=== PATIENT | female | born 1950 | race Caucasian/White ===

== ENCOUNTER 2021-05-26 14:58 | Outpatient (CLI) | payer MEDICARE, BC, SELFPAY ==
--- NOTE | ~2021-05-26 | DEXA_ITS ---
Bone Density Report Name: Gunjan Coyne Age: 71 Sex: Female Ethnicity: White Date of : 1950 Indication: postmenopausal; height loss; prior fracture; hysterectomy; Referring Provider: Ophelia Izaguirre Study: Bone densitometry was performed. Exam Date: May 26, 2021 Accession number: [id number] Bone Density: Region BMD T-score Z-score Classification AP Spine (L1, L2, L4) 1.170 1.2 3.3 Normal Femoral Neck (Left) 0.663 -1.7 0.1 Osteopenia Total Hip (Left) 0.799 -1.2 0.3 Osteopenia Total Hip Bilateral Avg 0.801 -1.2 0.3 Osteopenia Femoral Neck (Right) 0.675 -1.6 0.2 Osteopenia Total Hip (Right) 0.802 -1.1 0.3 Osteopenia World Health Organization criteria for BMD impression classify patients as: Normal (T-score at or above -1.0), Osteopenia (T-score between -1.0 and -2.5), or Osteoporosis (T-score at or below -2.5). 10-year Fracture Risk(1): Major Osteoporotic Fracture 16% Hip Fracture 2.2% Reported Risk Factors: [place] (), Neck BMD=0.663, BMI=29.2, previous fracture (1) FRAX(R) Version 3.08. Fracture probability calculated for an untreated patient. Fracture probability may be lower if the patient has received treatment. Clinical Information Provided by Patient: Has had a low trauma fracture Has used the following medications: Vitamin D Has the following medical conditions: Hysterectomy Patient maximum height was 65 Menopause Age: 50 No regular weight bearing exercise Drinks caffeinated beverages Onset of menses at age 13 Number of children 0 Impression: The patient has low bone mass, based on the Left Femoral Neck T-score. The patient has an estimated ten-year risk of hip fracture of 2.2% and an estimated ten-year risk of major fracture of 16%, based on the WHO FRAX algorithm. The patient has risk factors, including: previous fracture. Discussion: BONE DENSITY IS LOW AT ONE OR MORE SKELETAL SITES. This patient's lowest T-score is low at one or more skeletal sites. It meets the World Health Organization's (WHO) criteria for ?low bone mass? (T-score between -1.0 and -2.5). The patient's 10-year risk of fracture as calculated by FRAX is less than the threshold where pharmacological therapy is recommended by the National Osteoporosis Foundation (NOF). However, all treatment decisions require clinical judgment and consideration of individual patient factors, including patient preferences, comorbidities, previous drug use, risk factors not captured in the FRAX model (e.g., frailty, falls, vitamin D deficiency, increased bone turnover, interval significant decline in bone density) and possible under or overestimation of fracture risk by FRAX. The patient should follow a healthful lifestyle (good nutrition with adequate calcium and vitamin D, and appropriate weight-bearing exercise).
== END 2021-05-26 14:59 | disposition home or self-care (01) ==
LOC: ANHIMG 15:00
PROVIDERS: Visit Provider Nurse Practitioner Family
DX: Z78.0 Asymptomatic menopausal state (principal); M85.89 Other specified disorders of bone density and structure, multiple sites
CPT/HCPCS: 77080

== ENCOUNTER → 2022-05-09 10:49 | Outpatient (CLI) | payer MEDICARE, SELFPAY ==
--- NOTE | ~2022-05-09 | US_ITS ---
EXAMINATION: US thyroid DATE: 05/09/2022 11:09 INDICATION: Nontoxic goiter, unspecified. TECHNIQUE: Multiple ultrasound images of the thyroid were obtained. COMPARISON: None. FINDINGS: The right thyroid lobe measures 4.3 x 1.6 x 1.4 cm. The left thyroid lobe measures 3.5 x 1.0 x 1.2 c m. In the right thyroid lobe, there is a 4 mm nodule. In the right thyroid lobe, there is a 7 mm morales id, hypoechoic, wider than tall nodule with smooth margin without echogenic foci (TI-RADS TR4). In th e right thyroid lobe, there is a 10 mm solid, hypoechoic, wider than tall nodule with smooth margin w ithout echogenic foci (TR4). In the left thyroid lobe, there is a 3 mm nodule. In the left thyroid lo be, there is a 4 mm nodule. IMPRESSION: 1. Multinodular goiter. Thyroid ultrasound is recommended in one year. Reviewed, dictated and finalized at location A.
== END ==
PROVIDERS: PCP Nurse Practitioner Family; Visit Provider Nurse Practitioner Family
DX: E04.2 Nontoxic multinodular goiter (principal)
CPT/HCPCS: 76536

== ENCOUNTER → 2022-09-08 11:26 | Outpatient (CLI) | payer MEDICARE, SELFPAY ==
--- NOTE | ~2022-09-08 | CT_ITS ---
EXAMINATION: CT abdomen pelvis w con INDICATION: Early satiety, abnormal weight loss TECHNIQUE: Computed tomographic images of the abdomen and pelvis were obtained after the administrati on of 100 cc of Omnipaque 350 intravenous contrast. The dose-length product (DLP) was 763.99 mGy-cm. Automated exposure control and iterative reconstruction technique were employed. COMPARISON: None available FINDINGS: The lung bases are clear. The heart size is normal. The gallbladder is surgically absent. T he liver is diffusely low in attenuation when compared with the spleen, consistent with hepatic steat osis. There are surgical changes in the stomach. The spleen, pancreas, and adrenal glands are normal. The kidneys are unremarkable. No pathologically enlarged abdominal or pelvic lymph nodes are identif ied. There is no free intraperitoneal gas. There is mild fluid distention of the cecum. There is a qu estionable mass of the proximal ascending colon. There is moderate lumbar spondylosis. IMPRESSION: 1. Possible mass of the ascending colon with mild fluid distention of the cecum. Direct visualization with colonoscopy is recommended. Reviewed, dictated and finalized at location B. CULAR BIOLOGY PROFESSOR IMPRESSION: 1. Possible mass of the ascending colon with mild fluid distention of the cecum . Direct visualization with colonoscopy is recommended.
[2022-09-08 11:43] LABS: Estimated Glomerular Filt Rate > 60
== END ==
PROVIDERS: PCP Family Medicine; Visit Provider Family Medicine
DX: R10.9 Unspecified abdominal pain (principal); R63.0 Anorexia; R63.4 Abnormal weight loss; R68.81 Early satiety
CPT/HCPCS: 74177; Q9967

== ENCOUNTER 2022-10-02 08:59 | Day surgery (SDC) | payer MEDICARE, SELFPAY ==
[2022-09-25 10:25] VITALS: BMI 28.5
--- NOTE | 2022-09-29 14:27 | PM.HPGS ---
History of Present Illness History of Present Illness Consent: Risks, benefits, and alternatives have been discussed and questions answered. Patient agrees to proceed with procedure. Chief complaint: Abnormal Weight Loss & CTA of Abdomen and Pelvis Narrative: Gunjan Coyne is a 72 year old female Who ?has a history of having had polyps many times in the past.? When she would have her colonoscopies she always had several polyps except for the very last 1.? She states that about 15 years ago she had a mass in her duodenum and was told that she would need a Whipple procedure.? She however was able to have it removed endoscopically by Dr. Wiggins.? she also has had pain in the lower abdomen. CT scan shows a possible mass in the ascending colon. In the last 3 months she has lost nearly 30 lb. Review of Systems Review of Systems: All systems reviewed & are unremarkable except as noted in HPI and below PMFSH Past Medical History Medical History Dupuytren's contracture of right hand Hypothyroidism (acquired) Insomnia Iron deficiency anemia Multinodular goiter (~04/2022) Orthostatic lightheadedness Osteoarthritis Osteopenia Post herpetic neuralgia Vitamin B12 deficiency Vitamin D deficiency Surgical History Surgical History H/O lithotripsy (~2008) H/O release of tendon (~2009) Dupuytren's contracture of right hand release H/O: hysterectomy (~1998) History of cholecystectomy (~2003) History of left cataract surgery (~2012) History of left knee surgery (~07/06/22) ORIF of patellar fracture History of lumbar laminectomy (~2001) History of right cataract surgery (~2011) History of Gelacio-en-Y gastric bypass (~2005) Hx of decompressive lumbar laminectomy (~2010) S/P medial meniscectomy of left knee (~2000) Status post bariatric surgery 2005 Status post panniculectomy (~2007) Family History Family History Father Family history of coronary artery disease, Onset Age: 74 Mother Family history of coronary artery disease Other Carcinoma of colon Social History Social History Smoking packs per day: 1.5 Smoking cigarettes per day: 30.0 Years smoked: 7 Smoking pack-years: 10.50 Smoking status: Former smoker Tobacco type: cigarettes Second hand tobacco smoke exposure: No Smoking end date: 08/27/84 Alcohol intake: never Substance use: never Substance use type: does not use Lack of Transportation: No Lack of Food: Never True Current Housing: I Have Housing Concerned About Future Housing: No Difficulty Paying Gas/Electric Bills: No Difficulty Paying for Meds: No Currently Unemployed: No Education: Decline to Answer Difficulty w/ Childcare or Family Care: No Living arrangements: alone Occupation/Education: retired Gender identity (if verbalized by the patient): Female Spiritual care concerns: No Meds Home Medications and Allergies Home Medications Medication Instructions Recorded Confirmed Type mecobalamin (vitamin B12) 5,000 5,000 mcg PO .qdaily 09/06/21 10/02/22 History mcg disintegrating tablet ferrous sulfate 325 mg (65 mg 325 mg PO DAILY #90 tabs 02/15/22 10/02/22 Rx iron) tablet cholecalciferol (vitamin D3) 50 50 mcg PO DAILY 04/25/22 10/02/22 History mcg (2,000 unit) capsule levothyroxine 50 mcg tablet 50 mcg PO DAILY #90 tabs 07/12/22 10/02/22 Rx pregabalin 150 mg capsule (Lyrica) 150 mg PO BID #180 caps 07/24/22 10/02/22 Rx tramadol 50 mg tablet 50 mg PO BID PRN pain #60 tabs 07/24/22 10/02/22 Rx omeprazole 40 mg capsule,delayed 40 mg PO DAILY #90 caps 09/01/22 10/02/22 Rx release aspirin 81 mg tablet,delayed 81 mg PO DAILY 09/11/22 10/02/22 History release Allergies Allergy/AdvReac Type Severity Reaction
--- NOTE | 2022-10-02 07:23 | WPDANESEPPF ---
Anes - Initial Pre Proc Eval Procedure: Operation Date: 10/02/22 10:30 Proposed Procedures p Esophagogastroduodenoscopy - George Gonzalez MD s Diagnostic Colonoscopy - George Gonzalez MD Date/Time: 10/02/22 07:23 Surgeon: George Gonzalez MD Pre Op Diagnosis: Abnormal Weight Loss & CTA of Abdomen and Pelvis Patient Data Age: 72 Gender: F Height: 1.6 m Weight: 73 kg Allergies Allergy/AdvReac Type Severity Reaction Status Date / Time quinapril AdvReac Unknown Depression Verified 10/02/22 09:39 Home Medications Medication Instructions Recorded Confirmed Type mecobalamin (vitamin B12) 5,000 5,000 mcg PO .qdaily 09/06/21 09/25/22 History mcg disintegrating tablet ferrous sulfate 325 mg (65 mg 325 mg PO DAILY #90 tabs 02/15/22 09/25/22 Rx iron) tablet cholecalciferol (vitamin D3) 50 50 mcg PO DAILY 04/25/22 09/25/22 History mcg (2,000 unit) capsule levothyroxine 50 mcg tablet 50 mcg PO DAILY #90 tabs 07/12/22 09/25/22 Rx pregabalin 150 mg capsule (Lyrica) 150 mg PO BID #180 caps 07/24/22 09/25/22 Rx tramadol 50 mg tablet 50 mg PO BID PRN pain #60 tabs 07/24/22 09/25/22 Rx omeprazole 40 mg capsule,delayed 40 mg PO DAILY #90 caps 09/01/22 09/25/22 Rx release aspirin 81 mg tablet,delayed 81 mg PO DAILY 09/11/22 09/25/22 History release Patient hx anesthesia problems: none Family hx anesthesia problems: none Results Review: All pre-operative results and documents have been reviewed as part of the pre-operative evaluation. [facility] Past Medical History Medical History (Updated 09/29/22 @ 14:28 by Geogre Gonzalez MD) Dupuytren's contracture of right hand Hypothyroidism (acquired) Insomnia Iron deficiency anemia Multinodular goiter (~04/2022) Orthostatic lightheadedness Osteoarthritis Osteopenia Post herpetic neuralgia Vitamin B12 deficiency Vitamin D deficiency Surgical History Surgical History (Updated 09/19/22 @ 11:22 by George Gonzalez MD) H/O lithotripsy (~2008) H/O release of tendon (~2009) Dupuytren's contracture of right hand release H/O: hysterectomy (~1998) History of cholecystectomy (~2003) History of left cataract surgery (~2012) History of left knee surgery (~07/06/22) ORIF of patellar fracture History of lumbar laminectomy (~2001) History of right cataract surgery (~2011) History of Gelacio-en-Y gastric bypass (~2005) Hx of decompressive lumbar laminectomy (~2010) S/P medial meniscectomy of left knee (~2000) Status post bariatric surgery 2006 Status post panniculectomy (~2007) Family History Family History Father Family history of coronary artery disease, Onset Age: 74 Mother Family history of coronary artery disease Other Carcinoma of colon Social History Social History Smoking packs per day: 1.5 Smoking cigarettes per day: 30.0 Years smoked: 7 Smoking pack-years: 10.50 Smoking status: Former smoker Tobacco type: cigarettes Second hand tobacco smoke exposure: No Smoking end date: 08/27/84 Alcohol intake: never Substance use: never Substance use type: does not use Lack of Transportation: No Lack of Food: Never True Current Housing: I Have Housing Concerned About Future Housing: No Difficulty Paying Gas/Electric Bills: No Difficulty Paying for Meds: No Currently Unemployed: No Education: Decline to Answer Difficulty w/ Childcare or Family Care: No Living arrangements: alone Occupation/Education: retired Gender identity (if verbalized by the patient): Female Spiritual care concerns: No Anes - Eval Final PreProcedure Day of Procedure 10/02/22 07:23 Patient weight: overweight Heart: regular rate and rhythm Lungs: clear to auscultation Airway: Mallampati scale class II Neurological: alert and oriented Last oral intake: >/= 8 hours ASA classification: III Emergent: no A
[2022-10-02 09:25] VITALS: BP 127/76; PULSE 95; RESP 20; TEMP 37.3; O2SAT 98
[2022-10-02] MEDS: LACTATED RINGERS 1,000 ML 150 ML IV CONT (09:43)
[2022-10-02 11:20] VITALS: BP 132/63; PULSE 67; RESP 16; O2SAT 100
[2022-10-02 11:30] VITALS: BP 121/62; PULSE 64; RESP 15; O2SAT 100
--- NOTE | 2022-10-02 13:49 | WPDANESPN ---
Anes - Prog Note Post-Op Date/Time: 10/02/22 13:49 Cardiovascular status: normal Respiratory status: normal Airway patency: baseline Mental status: baseline Post-Op hydration status: normal Vital Signs: Last Vital Signs Temp 37.3 C 10/02/22 09:25 Pulse 64 10/02/22 11:30 Resp 15 10/02/22 11:30 BP 121/62 10/02/22 11:30 Pulse Ox 100 10/02/22 11:30 O2 Del Method Room Air 10/02/22 11:30 Pain Score (VAS): 0 I/O: Intake & Output 10/01/22 10/02/22 10/02/22 23:59 07:59 15:59 Intake Total 500 Balance 500 Post-procedural complaints: none Patient Feedback: Patient satisfied with anesthetic care. Other Findings: Patient vital signs back to baseline. Patient denies nausea and vomiting. Patient's pain under control. Patient OK for discharge.
== END 2022-10-02 12:17 | disposition home or self-care (01) ==
PROVIDERS: PCP Family Medicine; Visit Provider Internal Medicine Gastroenterology
PROC: 0DJ08ZZ Inspection of Upper Intestinal Tract, Via Natural or Artificial Opening Endoscopic (ICD-10-PCS; CPT 43235; principal; 2022-10-02 10:30)
PROC: 0DJD8ZZ Inspection of Lower Intestinal Tract, Via Natural or Artificial Opening Endoscopic (ICD-10-PCS; CPT 45378; 2022-10-02 10:30)
DX: R93.3 Abnormal findings on diagnostic imaging of other parts of digestive tract (principal)
CPT/HCPCS: 45385; 45380; 43235

== ENCOUNTER 2022-10-02 09:00 | Outpatient (NON) | payer MEDICARE, SELFPAY | END 2022-10-02 09:01 | disposition home or self-care (01) | LOC: ANHLAB 10-03 09:48 | PROVIDERS: PCP Family Medicine; Visit Provider Internal Medicine Gastroenterology | DX: R93.3 Abnormal findings on diagnostic imaging of other parts of digestive tract (principal) | CPT/HCPCS: 88305 ==

== ENCOUNTER 2022-11-05 14:48 | Inpatient (IN) | payer MEDICARE, SELFPAY ==
[2022-11-05] VITALS (13 sets, daily range): BP systolic 98–133; BP diastolic 58–81; PULSE 78–116; RESP 12–21; TEMP 36.4–36.8; O2SAT 97–100; BMI 30.4
--- NOTE | ~2022-11-05 | CT_ITS ---
EXAMINATION: CT guide absc cath placement DATE: 11/06/2022 14:04 INDICATION: Right retroperitoneal abscess. TECHNIQUE: The procedure including the risks, benefits, and alternatives was discussed with the patie nt. Risks discussed included bleeding and infection. The patient understood the risks and benefits an d agreed to proceed. The skin overlying the abdomen was prepped and draped in usual sterile fashion. Anesthetic was administered with 1% lidocaine subcutaneously. An 18 gauge trochar needle was inserte d into the right retroperitoneal abscess with CT guidance. The needle was exchanged over a wire for 6 Ukrainian and 8 Ukrainian dilators and then for an 8.5 Ukrainian pigtail catheter. The catheter was stitched to the skin, and a sterile dressing was applied. The mA was adjusted according to patient size. Itera tive reconstruction technique was employed. The dose-length product was 232.95 mGy-cm. There were no immediate complications. FINDINGS: CT images demonstrate the catheter within the right retroperitoneal abscess. 5 mL fluid was aspirated for testing. IMPRESSION: 1. Successful CT-guided right retroperitoneal abscess drainage. 2. 5 mL opaque, brown fluid was sent for aerobic and anaerobic cultures. Reviewed, dictated and finalized at location A.
--- NOTE | ~2022-11-05 | US_ITS ---
EXAMINATION: US paracentesis abd w/image DATE: 11/13/2022 15:35 INDICATION: Ascites. TECHNIQUE: The procedure and its risks and benefits were discussed with the patient. Potential risks discussed included bleeding and infection. The skin was prepped and draped in sterile fashion. 1% lid ocaine was used for local anesthesia. Under ultrasound guidance, a 5 Fr catheter with trochar was adv anced into the ascites in the left lower quadrant. Fluid was aspirated into vacuum bottles. The carlos a ter was removed, and a dressing was applied. There were no immediate complications. FINDINGS: Ultrasound images demonstrate ascites and the catheter within the fluid. IMPRESSION: 1. Successful ultrasound-guided paracentesis yielding 1700 mL of light yellowish fluid. Reviewed, dictated and finalized at location A. IMPRESSION: 1. Successful ultrasound-guided paracentesis yielding 1700 mL of light yellowi sh fluid.
--- NOTE | ~2022-11-05 | CT_ITS ---
CT of the Abdomen and Pelvis: Indication: Retroperitoneal abscess, status post drain placement Technique: 2.5 mm axial scans were obtained through the abdomen and pelvis following intravenous adm inistration of 100 cc of Omnipaque 350. Dose reduction technique was used on this scan by utilizing a utomated exposure control and iterative reconstruction technique. The dose-length product (DLP) was 1 252.80 mGy-cm. COMPARISON: 11/05/2022 Findings: Scans through the lung bases demonstrate minimal left pleural effusion. Diffuse fatty infiltration of the liver noted. Cholecystectomy clips present. The spleen, pancreas, g allbladder, adrenals and kidneys are within normal limits. No evidence of aortic aneurysm. No lymph adenopathy. No bowel obstruction evident. Mild diffuse bowel wall thickening may be related to the presence of as cites. There is evidence of prior bariatric surgery. Patient is status post interval placement of per cutaneous drainage catheter in the right retroperitoneal abscess since prior exam. The abscess is ess entially completely resolved on the current exam, with no significant residual fluid collection prese nt at this time.. Images through the pelvis were performed. Urinary bladder unremarkable. Patient is post hysterectomy. No pelvic mass seen. Moderate to large abdominopelvic ascites is present. Impression: Status post percutaneous drainage catheter placement within right retroperitoneal abscess. The absces s is essentially completely resolved, with no significant fluid collection present at this time about the drainage catheter. Moderate to large amount of abdominopelvic ascites is again present. Mild diffuse bowel wall thickening is likely related to the presence of ascites. Minimal left pleural effusion. Diffuse fatty infiltration of the liver. Reviewed, dictated and finalized at [facility]. Impression: Status post percutaneous drainage catheter placement within right retroperitone al abscess. The abscess is essentially completely resolved, with no significant fluid collection present at this time about the drainage catheter. Moderate to large amount of abdominopelvic ascites is again present. Mild diffuse bowel wall thickening is likely related to the presence of ascites . Minimal left pleural effusion. Diffuse fatty infiltration of the liver.
--- NOTE | ~2022-11-05 | US_ITS ---
EXAMINATION: US paracentesis abd w/image DATE: 11/09/2022 17:44 CDT INDICATION: Ascites. TECHNIQUE: The procedure for an ultrasound-guided paracentesis was discussed with the patient. Risks and benefits were detailed, including risks of bleeding, infection, and pain. The patient verbalize d understanding and agreed to proceed following written consent. A time and out was performed to verify patient's name, date of , and type of procedure. The lef t lower quadrant of the abdomen was prepped and draped in usual manner. 1% lidocaine was used for lo varinder anesthesia. A catheter was inserted into the left lower quadrant under ultrasound guidance into the ascitic fluid. The fluid was removed with vacuum assistance. All needles were removed. The patient tolerated the procedure without immediate complication.] FINDINGS: Limited images of the abdomen demonstrates a moderate amount of ascites. Approximately 135 0 of yellowish liquid was removed. IMPRESSION: 1. Successful ultrasound-guided paracentesis, with removal of approximately 1350 cc of fluid. Reviewed, dictated and finalized at location A. IMPRESSION: 1. Successful ultrasound-guided paracentesis, with removal of approximately 13 50 cc of fluid.
--- NOTE | ~2022-11-05 | XR_ITS ---
Clinical Indication: Shortness of breath PA and lateral views of the chest: Comparison: None Findings: The lungs are clear, without evidence of focal consolidation or pleural effusion. Cardiome diastinal silhouette is within normal limits. Bones and soft tissues are unremarkable. Impression: Normal chest. Reviewed, dictated and finalized at [facility]. Impression: Normal chest.
--- NOTE | ~2022-11-05 | CT_ITS ---
EXAMINATION: CT abdomen pelvis w con INDICATION: Abdominal pain and ascites TECHNIQUE: Computed tomographic images of the abdomen and pelvis were obtained after the administrati on of 100 cc of Omnipaque 350 intravenous contrast. The dose-length product (DLP) was 1032.27 mGy-cm. Automated exposure control and iterative reconstruction technique were employed. COMPARISON: 11/09/2022 FINDINGS: The lung bases are clear. The heart size is normal. There is a small left pleural effusion. There is a small to moderate volume of ascites. The liver is diffusely low in attenuation when syed red with the spleen, consistent with hepatic steatosis. The gallbladder is surgically absent. The spl een, pancreas, and adrenal glands are normal. The kidneys are unremarkable. No pathologically enlarge d abdominal or pelvic lymph nodes are identified. No free intraperitoneal gas or evidence of bowel ob struction. Mild diffuse bowel wall thickening likely relates to ascites. There is diffuse anasarca. L iquid stool is seen in the colon to the level of the rectum. The right lower quadrant percutaneous dr aidavonte catheter has been removed. No residual abscess is identified. IMPRESSION: 1. Small to moderate volume of ascites. 2. Diffuse hepatic steatosis. Reviewed, dictated and finalized at location L.
--- NOTE | ~2022-11-05 | CT_ITS ---
Clinical Indication: Shortness of breath, tachycardia, abnormal liver enzymes CT Scan of the Chest, Abdomen, and Pelvis with Contrast: Technique: Contiguous sections were acquired throughout the chest, abdomen, and pelvis after intraven ous administration of 100 cc of Omnipaque 350. Dose reduction technique was used on this scan by naveen russoing automated exposure control and iterative reconstruction technique. The dose-length product (DL P) was 1297.14 mGy-cm. COMPARISON: 09/08/2022 Findings: There is no evidence of any significant mediastinal, hilar or axillary lymphadenopathy. The mediastin al soft tissues appear normal. No pulmonary embolus. No aortic aneurysm or dissection. There is no evidence of pleural or pericardial effusion. The lungs are clear. No pulmonary nodules or infiltrates are noted. There is diffuse fatty infiltration of liver. Cholecystectomy clips noted. The spleen, pancreas, adre nals and kidneys are within normal limits. No evidence of aortic aneurysm. No lymphadenopathy. There is extensive large bowel wall thickening, likely reactive due to the presence of ascites. No lamberto wel obstruction. Moderate amount of abdominopelvic ascites present, most voluminous in the pelvis. Urinary bladder is unremarkable. Patient is post hysterectomy. No adnexal mass evident. There is a pe ripherally enhancing irregular fluid collection in the right flank region to right retroperitoneum, e xtending into the right iliac fossa, consistent with abscess. There is partial extension into the pos terior right abdominal wall musculature as well. Measurement is somewhat difficult due to the irregul ar shape, but it measures at least 9.0 x 7.1 x 10.0 cm in overall extent (series 5 images 96-140). Ab scess does appear to abut the appendix, but the appendix otherwise is essentially unremarkable in jinny earance. Impression: 9.0 x 7.1 x 10.0 cm irregular abscess in the right retroperitoneum, extending into the posterior righ t abdominal wall musculature, as well as into the right iliac fossa/right iliacus muscle belly. Moderate abdominopelvic ascites. Extensive large bowel wall thickening, presumably reactive due to the presence of ascites. Correlate for infectious/inflammatory colitis. Diffuse fatty infiltration of the liver. No pulmonary embolus. No pulmonary abnormality. Reviewed, dictated and finalized at [facility]. Impression: 9.0 x 7.1 x 10.0 cm irregular abscess in the right retroperitoneum, extending i nto the posterior right abdominal wall musculature, as well as into the right i liac fossa/right iliacus muscle belly. Moderate abdominopelvic ascites. Extensive large bowel wall thickening, presumably reactive due to the presence of ascites. Correlate for infectious/inflammatory colitis. Diffuse fatty infiltration of the liver. No pulmonary embolus. No pulmonary abnormality.
--- NOTE | ~2022-11-05 | US_ITS ---
EXAMINATION: US paracentesis abd w/image DATE: 11/06/2022 15:06 INDICATION: Ascites. TECHNIQUE: The procedure and its risks, benefits, and alternatives were discussed with the patient. P otential risks discussed included bleeding and infection. The skin was prepped and draped in sterile fashion. 1% lidocaine was used for local anesthesia. Under ultrasound guidance, a 5 Fr catheter with trochar was advanced into the ascites in the left lower quadrant. Fluid was aspirated. The catheter w as removed, and a dressing was applied. There were no immediate complications. FINDINGS: Ultrasound images demonstrate ascites and the catheter within the fluid. IMPRESSION: 1. Successful ultrasound-guided paracentesis yielding 1100 mL of clear, yellow fluid. Reviewed, dictated and finalized at location A.
--- NOTE | 2022-11-05 14:50 | ECG_ITS ---
Measurements Intervals [place] Rate: 110 P: 44 MD: 112 QRS: 4 QRSD: 82 T: 152 QT: 304 QTc: 413 Interpretive Statements SINUS TACHYCARDIA WITH SHORT MD INTERVAL ST-T WAVE ABNORMALITY IN HIGH LATERAL LEADS- CONSIDER ISCHEMIA BASELINE ARTIFACT- I, II, AVR, AVL ABNORMAL ECG NO PREVIOUS ECG AVAILABLE FOR COMPARISON Electronically Signed On 11-05-2022 20:24:48 CDT by Pieter Landry D.O.
[2022-11-05 15:30] LABS: Basophils Percent Auto 0.4 % (0.2-1.2); Eosinophils Percent Auto 0.1 % (0-4.4); Hematocrit 35.8 % (37.0-47.0); Hemoglobin 11.4 g/dL (12.0-15.0); Immature Granulocyte Absolute 0.05 K/mm3 (0.00-0.031); Immature Granulocyte Percent A 0.4 % (0-0.5); Lymphocytes Absolute Auto 0.88 K/mm3 (0.9-3.2); Lymphocytes Percent Auto 7.8 % (18.3-44.2); Mean Corpuscular HGB Conc 31.8 g/dl (32-36); Mean Corpuscular Hemoglobin 30.7 pg (26-34); Mean Corpuscular Volume 96.5 fl (80-100); Monocytes Absolute Auto 0.7 K/mm3 (0.1-0.6); Monocytes Percent Auto 5.9 % (2.6-8.5); Neutrophils Absolute Auto 9.7 K/mm3 (1.3-6.7); Neutrophils Percent Auto 85.4 % (45.5-73.1); Platelet Count Result 486 k/mm3 (150-375); Red Blood Count 3.71 M/mm3 (4.2-5.4); Red Cell Distribution Width 17.5 % (11.5-14.5); White Blood Count 11.3 K/mm3 (4.5-10.0)
[2022-11-05 15:40] LABS: Alanine Aminotransferase 33 U/L (6-35); Albumin Level 2.4 g/dL (3.5-5.1); Alkaline Phosphatase 170 U/L (38-126); Anion Gap 7 mmol/L (8-16); Aspartate Amino Transferase 49 U/L (14-36); Bilirubin,Total 1.5 mg/dL (0.2-1.3); Blood Urea Nitrogen 14 mg/dL (7-17); Calcium 7.6 mg/dL (8.4-10.2); Carbon Dioxide 23 mmol/L (22-30); Chloride 107 mmol/L (98-107); Estimated CRCL calculation 55 ml/min; Estimated Glomerular Filt Rate > 60; Glucose 155 mg/dL (65-110); Potassium 2.9 mmol/L (3.4-5.0); Sodium 137 mmol/L (137-145)
[2022-11-05 15:41] LABS: INR 2.1; Prothrombin Time 22.5 Seconds (11.1-14.7)
[2022-11-05 15:51] LABS: NT Pro B Type Natriuretic Pept 560 pg/mL (19.9-100); Troponin I < 0.012 ng/mL (0.000-0.034)
[2022-11-05 16:06] LABS: Influenza A QL RT-PCR Negative (Negative); Influenza B QL RT-PCR Negative (Negative); SARS-CoV-2 RNA PCR Negative
--- NOTE | 2022-11-05 17:17 | ED.SOB ---
HPI - SOB/Dyspnea General Chief Complaint: Shortness of Breath/Dyspnea <DASH Jain Last Filed: 11/05/22 20:54> Stated Complaint: SOB, swelling legs <DASH Jain Last Filed: 11/05/22 20:54> Time Seen by Provider: 11/05/22 17:16 <DASH Jain Last Filed: 11/05/22 20:54> History of Present Illness HPI Narrative: Patient is a 72-year-old female with a history of hypothyroidism here for evaluation of abdominal pain, weakness and shortness of breath. Patient states this has been present over the past 2 months but has been significantly worse over the past several days and she is unable to walk due to weakness. She reports a progressive lower extremity swelling and swelling in her abdomen, states she feels full and has early satiety. Has lost about 20 pounds in the past 3 months as well but states that her shoes and clothes are still tight. She does have a right lower abdominal pain. Patient had an outpatient CT done in August that showed a mass in her colon, had a recent colonoscopy that was negative. She denies any chest pain, fevers or chills, cough or congestion, sick contacts. She does not take blood thinner medicines. <Amy Gloria PA-C - Last Filed: 11/05/22 20:54> Related Data Home Medications: Home Medications Medication Instructions Recorded Confirmed mecobalamin (vitamin B12) 5,000 5,000 mcg PO .qdaily 09/06/21 10/24/22 mcg disintegrating tablet cholecalciferol (vitamin D3) 50 50 mcg PO DAILY 04/25/22 10/24/22 mcg (2,000 unit) capsule cetirizine 10 mg tablet (Zyrtec) 10 mg PO DAILY PRN Allergy Symptoms 10/11/22 10/24/22 <DASH Jain Last Filed: 11/05/22 20:54> Allergies/Adverse Reactions: Allergies Allergy/AdvReac Type Severity Reaction Status Date / Time quinapril AdvReac Unknown Depression Verified 11/05/22 18:04 <DASH Jain Last Filed: 11/05/22 20:54> Review of Systems Review of Systems: Gen.: Reports generalized fatigue and weight loss. Denies fevers or chills Eyes: Denies eye pain or visual change ENT: Denies congestion Respiratory: Reports shortness of breath CV: Denies chest pain or palpitations GI: Reports nausea, early satiety and abdominal pain. denies burning, urgency, frequency or hematuria Musculoskeletal: Reports leg swelling Neuro: Denies numbness, tingling, weakness or focal weakness Skin: Denies rash Except as documented, all other systems reviewed and negative <Amy Gloria PA-C - Last Filed: 11/05/22 20:54> [facility] Past Medical History Medical History: Medical History Dupuytren's contracture of right hand Hypothyroidism (acquired) Insomnia Iron deficiency anemia Multinodular goiter (~04/2022) Orthostatic lightheadedness Osteoarthritis Osteopenia Post herpetic neuralgia Vitamin B12 deficiency Vitamin D deficiency <Amy Gloria PA-C - Last Filed: 11/05/22 20:54> Surgical History Surgical History: Surgical History H/O lithotripsy (~2008) H/O release of tendon (~2009) Dupuytren's contracture of right hand release H/O: hysterectomy (~1998) History of cholecystectomy (~2003) History of left cataract surgery (~2012) History of left knee surgery (~07/06/22) ORIF of patellar fracture History of lumbar laminectomy (~2001) History of right cataract surgery (~2011) History of Gelacio-en-Y gastric bypass (~2005) Hx of decompressive lumbar laminectomy (~2010) S/P medial meniscectomy of left knee (~2000) Status post bariatric surgery 2006 Status post panniculectomy (~2007) <Amy Gloria PA-C - Last Filed: 11/05/22 20:54> Family History Family History: Family History Father Family history of coronary artery disease
[2022-11-05] MEDS: POTASSIUM CHLORIDE 20 MEQ TABLET 40 MEQ PO (17:46)
[2022-11-05 17:50] LABS: Lipase 20 U/L (23-300); Magnesium 2.1 mg/dL (1.6-2.3); Phosphorus 3.2 mg/dL (2.5-4.5)
[2022-11-05 18:28] LABS: Lactic Acid Reflex 3.4 mmol/L (0.7-2.0)
[2022-11-05 19:33] LABS: HAV RESULT Negative (Negative); Hepatitis B Core IgM Result Negative (Negative); Hepatitis B Surface Antigen Negative (Negative)
[2022-11-05 19:44] LABS: Hepatitis C Virus Antibody Negative (Negative)
[2022-11-05 19:48] LABS: Appearance Urine Cloudy (Clear); Bacteria Urine None Seen /hpf; Bilirubin Urine 2+ (Negative); Blood Urine Negative (Negative); Color Urine Dark Yellow (Yellow); Glucose Urine UA Negative (Negative); Hyaline Casts Urine Present /lpf; Ketones Urine Trace mg/dL (Negative); Leukocyte Esterase Ur 1+ LEU/UL (Negative); Mucus Urine Present /lpf; Need Manual Microscopic Reviewed; Nitrate Urine Positive (Negative); Non Pathogenic Casts >20; Protein Urine 1+ mg/dL (Negative); Specific Grav Ur 1.029 (1.001-1.035); Squamous Epithelial Cell Urine None seen /hpf (Few); WBC Urine 0-5 /hpf; pH Urine 5.5 (5.0-9.0)
[2022-11-05 19:50] LABS: Add Urine Microscopic? YES
--- NOTE | 2022-11-05 20:21 | PM.IMHP ---
H&P: HPI History of Present Illness Date/Time: 11/05/22 20:21 Chief Complaint: GENERALIZED WEAKNESS Narrative: This is a 72-year-old female with past medical history significant for hypothyroidism, GERD, iron deficiency anemia, multinodular goiter, orthostatic lightheadedness, osteoarthritis, osteopenia, post herpetic neuralgia act. Patient presents to the emergency room due to generalized weakness abdominal pain, abdominal bloating, bilateral lower extremity edema, poor appetite, night sweats, chills generalized malaise. Patient recently had colonoscopy exam for presumptive colon mass however was negative. Patient has had worsening of symptoms in the last 2 weeks or so. Preliminary workup was significant for alk phos 170, bilirubin 1.5 lactic acid 3.4, potassium 2.9. A CT of abdomen and pelvis was reported as: Findings: There is no evidence of any significant mediastinal, hilar or axillary lymphadenopathy. The mediastinal soft tissues appear normal. No pulmonary embolus. No aortic aneurysm or dissection. There is no evidence of pleural or pericardial effusion. The lungs are clear. No pulmonary nodules or infiltrates are noted. There is diffuse fatty infiltration of liver. Cholecystectomy clips noted. The spleen, pancreas, adrenals and kidneys are within normal limits.? No evidence of aortic aneurysm.? No lymphadenopathy. There is extensive large bowel wall thickening, likely reactive due to the presence of ascites. No bowel obstruction. Moderate amount of abdominopelvic ascites present, most voluminous in the pelvis. Urinary bladder is unremarkable. Patient is post hysterectomy. No adnexal mass evident. There is a peripherally enhancing irregular fluid collection in the right flank region to right retroperitoneum, extending into the right iliac fossa, consistent with abscess. There is partial extension into the posterior right abdominal wall musculature as well. Measurement is somewhat difficult due to the irregular shape, but it measures at least 9.0 x 7.1 x 10.0 cm in overall extent (series 5 images 96-140). Abscess does appear to abut the appendix, but the appendix otherwise is essentially unremarkable in appearance. Impression: 9.0 x 7.1 x 10.0 cm irregular abscess in the right retroperitoneum, extending into the posterior right abdominal wall musculature, as well as into the right iliac fossa/right iliacus muscle belly. Moderate abdominopelvic ascites. Extensive large bowel wall thickening, presumably reactive due to the presence of ascites. Correlate for infectious/inflammatory colitis. Diffuse fatty infiltration of the liver. No pulmonary embolus. No pulmonary abnormality. Review of Systems Review of Systems: Generalized weakness, generalized malaise, to abdominal bloating abdominal pain, poor appetite, night sweats, chills, bilateral lower extremity swelling Constitutional: Constitutional: Denies chills, Reports fatigue, Reports lethargy, Reports malaise, Reports night sweats, Reports poor appetite, Reports weakness and Reports weight loss Eyes: Eyes: Denies change in vision ENT: Denies dysphagia and Denies odynophagia Cardiovascular: Cardiovascular: Denies chest pain, Reports leg edema and Denies palpitations Respiratory: Respiratory: Denies chest congestion, Denies cough, Denies excessive phlegm production and Denies pain on inspiration Gastrointestinal: Gastrointestinal: Reports abdominal pain, Denies melena, Reports bloating, Denies hematochezia, Denies change in bowel habits, Denies coffee ground emesis, Denies dyspepsia, Denies heartburn, Reports diarrhea, Denies nausea and Denies vomiting Genitourinary: Genitourinary: Denies dysuria Musculoskeletal: Musculoskeletal: Reports muscle weakness Integumentary/Breasts: Skin/Breast: Denies rash Neurologic: Denies focal weakness and Denies Sensory deficit (Neuro) Psychiatric: Psychiatric: Reports no additional psychiatric complaints and Reports as per HPI Endocr
[2022-11-05] MEDS: PIPERACILLN/TAZ 3.375GM/NS50ML 3.375 GM/50 ML BAG IVPB (20:34)
[2022-11-05] MEDS: LACTATED RINGERS 1,000 ML 999 ML IV CONT (20:35)
[2022-11-05] MEDS: metroNIDAZOLE 500 MG/ISO 100ML 500 MG/100 ML BAG 100 MG IVPB (21:03)
[2022-11-05 21:17] LABS: Reflex Lactic Acid Yes or No Add Lactic
--- NOTE | 2022-11-05 21:49 | PC.NURSE ---
This patient, Gunjan Coyne, was admitted to IMU Room 201-01. Patient/family oriented to hospital policies and general routines including ID bracelet, bed and alarms, visiting hours, pain management, procedures, bathroom and other care routines, personal items, smoking policy, room service/diet, and visiting hours. Information on how to activate the Rapid Response Team has been discussed. Patient/Family are encouraged to report perceived risks to care and to ask questions if they do not understand what they are told or what they should do.
[2022-11-05] MEDS: LACTATED RINGERS 1,000 ML 150 ML IV CONT (22:45)
[2022-11-06] VITALS (16 sets, daily range): BP systolic 108–114; BP diastolic 48–66; PULSE 66–116; RESP 18–20; TEMP 36.4–36.8; O2SAT 97–100; BMI 30.4
[2022-11-06] MEDS: traMADol HCL (*CRX) 50 MG TABLET PO (01:03)
[2022-11-06] MEDS: PIPERACILLN/TAZ 3.375GM/NS50ML 3.375 GM/50 ML BAG IVPB ×4 (05:38→23:36)
[2022-11-06] MEDS: metroNIDAZOLE 500 MG/ISO 100ML 500 MG/100 ML BAG 100 MG IVPB ×3 (05:40→21:45)
[2022-11-06 09:07] LABS: Lactic Acid 1.1 mmol/L (0.7-2.0)
--- NOTE | 2022-11-06 10:20 | PM.CNGS ---
Assessment and Plan Assessment and plan (1) Abscess, retroperitoneal: Code(s): K68.19 - Other retroperitoneal abscess Status: Acute Assessment and Plan: Patient presents with a fairly large retroperitoneal abscess on the right side. CT reviewed with Radiologist by Dr. Haddad. This appears to be secondary to perforated appendicitis. We would recommend to continue broad-spectrum IV antibiotics, keep NPO, and continue IV fluids. We will order a CT-guided abscess drainage in Radiology for today. Noted that her INR is elevated at 2.1. Could be related to liver disease. She is not on any anticoagulation. Spoke with the Radiologist regarding when to proceed and plan is to do the drainage today. We could possibly start a liquid diet after her procedures this afternoon if she is doing well. (2) Perforated appendicitis: Code(s): K35.32 - Acute appendicitis with perforation, localized peritonitis, and gangrene, without abscess Status: Acute Assessment and Plan: See plan above. 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 (3) Fatty liver: Code(s): K76.0 - Fatty (change of) liver, not elsewhere classified Status: Acute (4) Abdominal ascites: Code(s): R18.8 - Other ascites Status: Acute Assessment and Plan: Paracentesis ordered by Hospitalist. Radiology will be coordinating this with the CT-guided drainage today. (5) Hypokalemia: Code(s): E87.6 - Hypokalemia Status: Acute Assessment and Plan: K 2.9 in ER and was given 40 meq KCL orally. Ordered repeat labs today. (6) History of Gelacio-en-Y gastric bypass: Onset Date: ~2005 Code(s): Z98.84 - Bariatric surgery status Status: Acute Assessment and Plan: 2005 and lost over 100 lbs. (7) Weight loss: Code(s): R63.4 - Abnormal weight loss Status: Acute (8) Hypothyroidism (acquired): Code(s): E03.9 - Hypothyroidism, unspecified Status: Acute (9) Elevated LFTs: Code(s): R79.89 - Other specified abnormal findings of blood chemistry Status: Acute Assessment and Plan: Mild elevation in LFTs on admission. She reports a history of this and fatty liver disease, which could be the cause. Hepatitis panel negative. Management per Hospitalist. (10) Elevated INR: Code(s): R79.1 - Abnormal coagulation profile Status: Acute Assessment and Plan: INR 2.1 on admission. Discussed with Radiologist. Could be related to fatty liver disease. Not on any anticoagulation. Plan I have discussed the patient's case and plan of care with Dr. Haddad. History of Present Illness Consult details Consult date: 11/06/22 Reason for consult: other (Right retroperitoneal abscess) Requesting physician: Amy Gloria PA-C Narrative: This is a 72 yo F with a history of hypothyroidism and GERD, who presented to the ER Yesterday with complaints of generalized weakness, lightheadedness, malaise, right lower quadrant abdominal pain. She reports having poor appetite and decreased oral intake starting in June of 2022. This was following a left knee surgery after a fracture that was treated at [facility]. Over the next month she continued to have a poor appetite and developed generalized weakness. She also began losing weight and has lost a total of about 20 lbs. She developed lightheadedness and dizziness upon standing. This would occur after just a few minutes of standing. Then she would have to take a rest. Due to these progressive symptoms, she saw her PCP in August. They had ordered labs and got a CT scan of the abdomen and pelvis as she had right lower quadrant abdominal tenderness on exam. CT showed a possible ascending colon mass. This prompted GI evaluation. She had an EGD and c
[2022-11-06 10:23] LABS: Basophils Percent Auto 0.5 % (0.2-1.2); Eosinophils Percent Auto 0.3 % (0-4.4); Hematocrit 28.9 % (37.0-47.0); Hemoglobin 9.1 g/dL (12.0-15.0); Immature Granulocyte Absolute 0.02 K/mm3 (0.00-0.031); Immature Granulocyte Percent A 0.3 % (0-0.5); Lymphocytes Absolute Auto 1.01 K/mm3 (0.9-3.2); Lymphocytes Percent Auto 15.4 % (18.3-44.2); Mean Corpuscular HGB Conc 31.5 g/dl (32-36); Mean Corpuscular Hemoglobin 30.3 pg (26-34); Mean Corpuscular Volume 96.3 fl (80-100); Mean Platelet Volume 10.5 fl (7.4-10.4); Monocytes Absolute Auto 0.5 K/mm3 (0.1-0.6); Monocytes Percent Auto 6.9 % (2.6-8.5); Neutrophils Percent Auto 76.6 % (45.5-73.1); Platelet Count Result 278 k/mm3 (150-375); Red Cell Distribution Width 17.7 % (11.5-14.5); White Blood Count 6.6 K/mm3 (4.5-10.0)
[2022-11-06 10:26] LABS: Anion Gap 0 mmol/L (8-16); Blood Urea Nitrogen 12 mg/dL (7-17); Calcium 7.3 mg/dL (8.4-10.2); Carbon Dioxide 26 mmol/L (22-30); Chloride 109 mmol/L (98-107); Estimated CRCL calculation 64 ml/min; Estimated Glomerular Filt Rate > 60; Glucose 73 mg/dL (65-110); Potassium 3.2 mmol/L (3.4-5.0); Sodium 135 mmol/L (137-145)
[2022-11-06 12:21] LABS: INR 2.3; Prothrombin Time 24.4 Seconds (11.1-14.7)
[2022-11-06] MEDS: POTASSIUM CHLORIDE INJ 40 MEQ in SODIUM CHLORIDE 0.9% IV 500 ML 130 MEQ IVPB (12:22)
[2022-11-06 12:27] LABS: Lactate Dehydrogenase 194 U/L (120-246)
--- NOTE | 2022-11-06 16:13 | PCCCNOTE ---
On 11/06/22, the student, [Adela Jonas ], provided care and [facility]. I have reviewed the student's documentation and agree with the findings.
--- NOTE | 2022-11-06 16:22 | PC.NURSE ---
Patient drain contains brown liquid stool. Marisol Zepeda notified, Charge nurse notified. Marisol Degroot stated she will contact Dr. Haddad.
[2022-11-06 16:58] LABS: Appearance Peritoneal Fluid Clear (Clear); Color Peritoneal Fluid Yellow (Colorless); Source Peritoneal Fluid Peritoneal Fluid
[2022-11-06 17:00] LABS: RBC Peritoneal Fluid < 2000 /uL (0-100000)
--- NOTE | 2022-11-06 17:01 | PM.IMPN ---
Progress Note: A&P Assessment and Plan (1) Abscess, retroperitoneal: Code(s): K68.19 - Other retroperitoneal abscess Status: Acute Assessment and Plan: Admit to IMU Patient started on broad-spectrum antibiotics Zosyn and Flagyl General surgery consult Supportive care Continue to monitor HPI-Narrative: This is a 72-year-old female with past medical history significant for hypothyroidism, GERD, iron deficiency anemia, multinodular goiter, orthostatic lightheadedness, osteoarthritis, osteopenia, post herpetic neuralgia act.? Patient presents to the emergency room due to generalized weakness abdominal pain, abdominal bloating, bilateral lower extremity edema, poor appetite, night sweats, chills generalized malaise.? Patient recently had colonoscopy exam for presumptive colon mass however was negative.? Patient has had worsening of symptoms in the last 2 weeks or so.? Preliminary workup was significant for alk phos 170, bilirubin 1.5 lactic acid 3.4, potassium 2.9.? A CT of abdomen and pelvis was reported as: 11/06/2022 Interval history: patient with complaint of abdominal pain CT scan of the abdomen showed perforated appendix seen by surgery service recommended percutaneous drain to help drain, the abscess, patient is scheduled to have the procedure later today, clinically patient is stable will continue to monitor. (2) Abdominal ascites: Code(s): R18.8 - Other ascites Status: Acute Assessment and Plan: Consider paracentesis Peritoneal fluid for analysis (3) Abdominal pain: Code(s): R10.9 - Unspecified abdominal pain Status: Acute Assessment and Plan: Likely secondary to retroperitoneal abscess Supportive care (4) Hypothyroidism (acquired): Code(s): E03.9 - Hypothyroidism, unspecified Status: Acute Assessment and Plan: Continue home meds Follow-up in outpatient setting (5) Hypokalemia: Code(s): E87.6 - Hypokalemia Status: Acute Assessment and Plan: Replace as needed Subjective Date/time seen: 11/06/22 17:01 GENERALIZED WEAKNESS HPI-Narrative: This is a 72-year-old female with past medical history significant for hypothyroidism, GERD, iron deficiency anemia, multinodular goiter, orthostatic lightheadedness, osteoarthritis, osteopenia, post herpetic neuralgia act.? Patient presents to the emergency room due to generalized weakness abdominal pain, abdominal bloating, bilateral lower extremity edema, poor appetite, night sweats, chills generalized malaise.? Patient recently had colonoscopy exam for presumptive colon mass however was negative.? Patient has had worsening of symptoms in the last 2 weeks or so.? Preliminary workup was significant for alk phos 170, bilirubin 1.5 lactic acid 3.4, potassium 2.9.? A CT of abdomen and pelvis was reported as: 11/06/2022 Interval history: patient with complaint of abdominal pain CT scan of the abdomen showed perforated appendix seen by surgery service recommended percutaneous drain to help drain, the abscess, patient is scheduled to have the procedure later today, clinically patient is stable will continue to monitor. Review of Systems Review of Systems: The remainder of the review of systems to include constitutional, HEENT, cardiovascular, respiratory, GI, , integumentary, musculoskeletal, endocrine, immunologic, hematologic, psychiatric, and neurologic are all negative except for which is mentioned above in the HPI. Exam Narrative: Patient is comfortable, NAD HEENT: eyes are clear and none icteric LUNGS: normal respiratory effort ABD: not distended Lower extremities: no edema SKIN: nonjaundiced Neuro: grossly intact. Objective Data Vital Signs Vital Signs: Vital Signs - 24 hr 11/05/22 17:23 11/05/22 17:32 11/05/22 18:00 Temperature Pulse Rate 110 H 98 101 H Respiratory Rate 21 H 12 12 Blood Pressure 102/64 98/72 L 102/64 Pulse Oximetry 100 100 100 Oxygen Delivery
[2022-11-06 17:29] LABS: Lymphocytes Peritoneal Fluid 29 %; Monocytes Peritoneal Fluid 58 %; Neutrophils Peritoneal Fluid 13 % (0-25)
[2022-11-07] VITALS (16 sets, daily range): BP systolic 104–115; BP diastolic 55–75; PULSE 54–83; RESP 18–20; TEMP 36.2–36.7; O2SAT 97–100
[2022-11-07 05:42] LABS: Hematocrit 28.7 % (37.0-47.0); Mean Corpuscular HGB Conc 31.4 g/dl (32-36); Mean Corpuscular Hemoglobin 30.7 pg (26-34); Mean Platelet Volume 10.1 fl (7.4-10.4); Platelet Count Result 230 k/mm3 (150-375); Red Blood Count 2.93 M/mm3 (4.2-5.4); Red Cell Distribution Width 17.7 % (11.5-14.5); White Blood Count 4.8 K/mm3 (4.5-10.0)
[2022-11-07] MEDS: metroNIDAZOLE 500 MG/ISO 100ML 500 MG/100 ML BAG 100 MG IVPB ×3 (05:57→21:54)
[2022-11-07] MEDS: PIPERACILLN/TAZ 3.375GM/NS50ML 3.375 GM/50 ML BAG IVPB ×4 (05:57→23:28)
[2022-11-07 06:12] LABS: Alanine Aminotransferase 28 U/L (6-35); Albumin Level 1.8 g/dL (3.5-5.1); Alkaline Phosphatase 122 U/L (38-126); Anion Gap 2 mmol/L (8-16); Aspartate Amino Transferase 40 U/L (14-36); Bilirubin,Total 1.1 mg/dL (0.2-1.3); Blood Urea Nitrogen 9 mg/dL (7-17); Calcium 7.3 mg/dL (8.4-10.2); Carbon Dioxide 24 mmol/L (22-30); Chloride 108 mmol/L (98-107); Estimated CRCL calculation 50 ml/min; Estimated Glomerular Filt Rate > 60; Glucose 59 mg/dL (65-110); Potassium 3.4 mmol/L (3.4-5.0); Sodium 134 mmol/L (137-145)
[2022-11-07 06:36] LABS: Nucleated Cells Peritoneal Flu 331 /uL (0-500)
[2022-11-07 08:14] LABS: Glucose Point of Care 69 mg/dl (65-105)
--- NOTE | 2022-11-07 11:12 | WPDPN ---
Progress Note: A&P Assessment and Plan (1) Abscess, retroperitoneal: Code(s): K68.19 - Other retroperitoneal abscess Status: Acute Assessment and Plan: Patient had the abscess percutaneously drained in Radiology yesterday. Culture results on the abscess or pending. Blood cultures x2 on admission are still negative. Will continue with the Khloe and Earnestine for IV antibiotics for now. She tolerated clear liquids and so we can go ahead advance her diet as tolerated. I discussed with her staying on some IV antibiotics in the hospital for least 1 or 2 more days until we get the culture results and then we can transition oral antibiotics. Likely get repeat CT scan prior to discharge and the abscess has resolved than the drain could possibly be removed before she goes home. If she goes home with the drain she will need to have home health nurse set up. Due to her recent immobility and weakness will go ahead and get physical therapy and occupational therapy to see her while she is in the hospital. Would likely proceed with an interval appendectomy in about 6 weeks since that is the most likely reason for the abscess. Subjective Date/time seen: 11/07/22 11:12 Interval history: Patient feels better today. Much less pain in the right lower quadrant and right leg. She had percutaneous placement of a drain for a right retroperitoneal right lower quadrant abscess most likely from a perforated appendicitis yesterday. She remains afebrile and white blood cell count remains normal. Output from the drain is purulent. She has tolerated clear liquids without difficulty. Review of Systems Review of Systems: The remainder of the review of systems to include constitutional, HEENT, cardiovascular, respiratory, GI, , integumentary, musculoskeletal, endocrine, immunologic, hematologic, psychiatric, and neurologic are all negative except for which is mentioned above in the HPI. Exam Narrative: Abdomen is soft and nondistended. The drain exits the lower quadrant abdominal wall and the site is dry dressing intact. Output from the drain is purulent and nonbloody. She does not have any guarding or peritoneal signs. Resp: Effort & Inspection: normal respiratory effort Auscultation: clear to auscultation bilaterally Cardio: Rate: regular rate Rhythm: regular rhythm Neuro: Speech: normal speech Sensory Exam: normal sensation Extrem: General: normal to inspection Psych: Mental Status: mental status grossly normal Affect: normal affect Objective Data Vital Signs Vital Signs: Vital Signs - 24 hr 11/06/22 12:08 11/06/22 16:25 11/06/22 12:00 Temperature 36.8 C 36.4 C Pulse Rate 70 70 70 Respiratory Rate 18 20 Blood Pressure 108/54 L 108/52 L Pulse Oximetry 98 100 Oxygen Delivery 11/06/22 14:00 11/06/22 16:00 11/06/22 12:00 Temperature Pulse Rate 76 73 Respiratory Rate Blood Pressure Pulse Oximetry 100 Oxygen Delivery Room Air 11/06/22 16:00 11/06/22 18:00 11/06/22 20:00 Temperature 36.5 C Pulse Rate 76 73 Respiratory Rate 20 Blood Pressure 110/51 L Pulse Oximetry 100 99 Oxygen Delivery Room Air 11/06/22 23:30 11/06/22 20:00 11/06/22 20:00 Temperature 36.5 C Pulse Rate 66 68 68 Respiratory Rate 20 20 Blood Pressure 109/55 L Pulse Oximetry 97 97 Oxygen Delivery Room Air 11/06/22 22:00 11/07/22 00:00 11/07/22 00:00 Temperature Pulse Rate 72 74 72 Respiratory Rate 20 Blood Pressure Pulse Oximetry 97 Oxygen Delivery Room Air 11/07/22 02:00 11/07/22 04:00 11/07/22 04:00 Temperature Pulse Rate 54 L 56 L 56 L Respiratory Rate 20 Blood Pressure Pulse Oximetry 97 Oxygen Delivery Room Air 11/07/22 04:00 11/07/22 06:00 11/07/22 08:22 Temperature 36.5 C 36.7 C Pulse Rate 56 L 61 67 Respiratory Rate 20 20 Blood Pressure 115/60 110/58 L Pulse Oximetry 99 99 Oxygen Delivery Intake/Output Intake/
[2022-11-07 12:13] LABS: Glucose Point of Care 84 mg/dl (65-105)
[2022-11-07] MEDS: FUROSEMIDE INJ 40 MG/4 ML VIAL 20 MG IV PUSH (14:01)
[2022-11-07] MEDS: ONDANSETRON INJ 4 MG/2 ML VIAL IV PUSH (14:10)
--- NOTE | 2022-11-07 17:04 | PM.IMPN ---
Progress Note: A&P Assessment and Plan (1) Abscess, retroperitoneal: Code(s): K68.19 - Other retroperitoneal abscess Status: Acute Assessment and Plan: Admit to IMU Patient started on broad-spectrum antibiotics Zosyn and Flagyl General surgery consult Supportive care Continue to monitor HPI-Narrative: This is a 72-year-old female with past medical history significant for hypothyroidism, GERD, iron deficiency anemia, multinodular goiter, orthostatic lightheadedness, osteoarthritis, osteopenia, post herpetic neuralgia act.? Patient presents to the emergency room due to generalized weakness abdominal pain, abdominal bloating, bilateral lower extremity edema, poor appetite, night sweats, chills generalized malaise.? Patient recently had colonoscopy exam for presumptive colon mass however was negative.? Patient has had worsening of symptoms in the last 2 weeks or so.? Preliminary workup was significant for alk phos 170, bilirubin 1.5 lactic acid 3.4, potassium 2.9.? A CT of abdomen and pelvis was reported as: 11/07/2022 Interval history: patient with complaint of abdominal pain, CT scan of the abdomen showed perforated appendix seen by surgery service recommended percutaneous drain to help drain, patient had drain placed on 11/06 the abscess draining dark yellow fluid, patient is being treated with Zosyn and Flagyl pending abscess culture, today patient seen by surgery service started the patient on heart healthy diet, and will start PT OT, clinically patient is stable will continue to monitor. (2) Abdominal ascites: Code(s): R18.8 - Other ascites Status: Acute Assessment and Plan: Consider paracentesis Peritoneal fluid for analysis (3) Abdominal pain: Code(s): R10.9 - Unspecified abdominal pain Status: Acute Assessment and Plan: Likely secondary to retroperitoneal abscess Supportive care (4) Hypothyroidism (acquired): Code(s): E03.9 - Hypothyroidism, unspecified Status: Acute Assessment and Plan: Continue home meds Follow-up in outpatient setting (5) Hypokalemia: Code(s): E87.6 - Hypokalemia Status: Acute Assessment and Plan: Replace as needed Subjective Date/time seen: 11/07/22 17:04 HPI-Narrative: This is a 72-year-old female with past medical history significant for hypothyroidism, GERD, iron deficiency anemia, multinodular goiter, orthostatic lightheadedness, osteoarthritis, osteopenia, post herpetic neuralgia act.? Patient presents to the emergency room due to generalized weakness abdominal pain, abdominal bloating, bilateral lower extremity edema, poor appetite, night sweats, chills generalized malaise.? Patient recently had colonoscopy exam for presumptive colon mass however was negative.? Patient has had worsening of symptoms in the last 2 weeks or so.? Preliminary workup was significant for alk phos 170, bilirubin 1.5 lactic acid 3.4, potassium 2.9.? A CT of abdomen and pelvis was reported as: 11/07/2022 Interval history: patient with complaint of abdominal pain, CT scan of the abdomen showed perforated appendix seen by surgery service recommended percutaneous drain to help drain, patient had drain placed on 11/06 the abscess draining dark yellow fluid, patient is being treated with Zosyn and Flagyl pending abscess culture, today patient seen by surgery service started the patient on heart healthy diet, and will start PT OT, clinically patient is stable will continue to monitor. Exam Narrative: Patient is comfortable, NAD HEENT: eyes are clear and none icteric LUNGS: normal respiratory effort ABD: not distended Lower extremities: no edema SKIN: nonjaundiced Neuro: grossly intact. Objective Data Vital Signs Vital Signs: Vital Signs - 24 hr 11/06/22 18:00 11/06/22 20:00 11/06/22 23:30 Temperature 97.7 F 97.7 F Pulse Rate 76 73 66 Respiratory Rate 20 20 Blood Pressure 110/51 L 109/55 L Pulse Oximetry 99 97
[2022-11-07 17:09] LABS: Glucose Point of Care 121 mg/dl (65-105)
[2022-11-07 20:28] LABS: Glucose Point of Care 129 mg/dl (65-105)
[2022-11-07] MEDS: traMADol HCL (*CRX) 50 MG TABLET PO (21:53)
[2022-11-08] VITALS: PULSE 62
[2022-11-08 04:00] VITALS: BP 117/61; PULSE 58; PULSE 68; RESP 20; TEMP 36.7; O2SAT 98
[2022-11-08 04:10] LABS: Hematocrit 28.2 % (37.0-47.0); Hemoglobin 8.9 g/dL (12.0-15.0); Mean Corpuscular HGB Conc 31.6 g/dl (32-36); Mean Corpuscular Hemoglobin 30.7 pg (26-34); Mean Corpuscular Volume 97.2 fl (80-100); Platelet Count Result 263 k/mm3 (150-375); Red Cell Distribution Width 17.4 % (11.5-14.5); White Blood Count 6.1 K/mm3 (4.5-10.0)
[2022-11-08 04:47] LABS: Alanine Aminotransferase 27 U/L (6-35); Albumin Level 1.9 g/dL (3.5-5.1); Alkaline Phosphatase 126 U/L (38-126); Anion Gap -1 mmol/L (8-16); Aspartate Amino Transferase 36 U/L (14-36); Bilirubin,Total 1.1 mg/dL (0.2-1.3); Blood Urea Nitrogen 7 mg/dL (7-17); Calcium 7.2 mg/dL (8.4-10.2); Carbon Dioxide 26 mmol/L (22-30); Chloride 108 mmol/L (98-107); Estimated CRCL calculation 50 ml/min; Estimated Glomerular Filt Rate > 60; Glucose 83 mg/dL (65-110); Magnesium 1.9 mg/dL (1.6-2.3); Potassium 2.7 mmol/L (3.4-5.0); Sodium 133 mmol/L (137-145)
[2022-11-08] MEDS: PIPERACILLN/TAZ 3.375GM/NS50ML 3.375 GM/50 ML BAG IVPB (05:28)
[2022-11-08] MEDS: metroNIDAZOLE 500 MG/ISO 100ML 500 MG/100 ML BAG 100 MG IVPB ×2 (05:29→16:49)
[2022-11-08 08:00] VITALS: BP 114/59; PULSE 63; PULSE 64; RESP 16; TEMP 36.6; O2SAT 100
[2022-11-08 08:21] LABS: Glucose Point of Care 73 mg/dl (65-105)
[2022-11-08] MEDS: POTASSIUM CHLORIDE INJ 40 MEQ in SODIUM CHLORIDE 0.9% IV 500 ML 130 MEQ IVPB ×2 (08:22→12:31)
[2022-11-08] MEDS: traMADol HCL (*CRX) 50 MG TABLET PO (09:47)
[2022-11-08] MEDS: SODIUM CHLORIDE 0.9% IV 250 ML 62.5 ML (11:48)
[2022-11-08 12:00] VITALS: BP 130/68; PULSE 81; PULSE 85; RESP 18; TEMP 36.4; O2SAT 100
--- NOTE | 2022-11-08 12:05 | IDPHARM ---
Subjective Pharmacy was consulted by Bennett Haddad regarding infectious diseases for Gunjan Coyne. Gunjan Coyne is a 72 year old F with concerns regarding intra-abdominal abscess. Background The patient is currently receiving Zosyn and Metronidazole (D3). The patient has undergone percutaneous draining of an intra-abdominal abscess that is likely the result of the patient's appendix per provider note. Culture from draining show prevotella spp. and a viridans group streptococus spp (streptococcus milleri). Additionally, second abscess culture on 11/06 and blood culture on 11/05 are no growth to date. Patient does not have any leukocytosis and an estimated CrCl of 50 mL/min. Assessment/Recommendation/Discussion Discussed with consulting provider affirming that current therapy is effective for the management of these isolated pathogens. However, as pseudomonas aeruginosa coverage is not needed given the culture results, the zosyn is de-escalated to ceftriaxone. As patient discharges likely can pick an Augmentin +/- metronidazole, Cefdinir+metronidazole, or levofloxacin + metronidazole should no contra-indications exist. Duration of therapy can likely be 4-7 days from source control, but will defer this decision to provider(s) as it has been noted that appendectomy is planned ~6weeks later. Please consider reaching out if I may assist further. Thank you for the interesting consult. Francisco Reddy, PharmD Infectious Disease/Antimicrobial Stewardship Pharmacist 11/08/22; [id number]
[2022-11-08] MEDS: MAGNESIUM SULF 2 GM/WATER 50ML 2 GM/50 ML BAG IVPB (12:31)
[2022-11-08 13:02] LABS: Glucose Point of Care 88 mg/dl (65-105)
--- NOTE | 2022-11-08 13:28 | PM.PNGS ---
Progress Note: A&P Assessment and Plan (1) Abscess, retroperitoneal: Code(s): K68.19 - Other retroperitoneal abscess Status: Acute Assessment and Plan: S/p percutaneous drainage in Radiology on 11/06, cultures have preliminary results of Prevotella species and streptococcus milleri group. Blood cx NGTD. Tolerating a solid diet. Continue IV antibiotics and plan to switch to oral antibiotics on discharge in the next 1-2 days if continues to improve. Consulted ID pharmacist due to cx results, changing to IV Rocephin with Flagyl Monitor perc drain again today and will repeat a CT scan abdomen/pelvis with IV contrast tomorrow morning to re-evaluate the abscess. Still has generalized weakness, although improving. Continue PT/OT. Patient lives at home alone and may need care home placement for rehab on discharge depending on therapy's recommendations. Plan I have discussed the patient's case and plan of care with Dr. Haddad. Subjective Subjective Date/Time Seen: 11/08/22 12:28 Patient reports: no new complaints, feels better, tolerating a regular diet, flatus, bowel movement and afebrile Interval history: Patient reports feeling better today. She feels like she has more strength and was able to walk to the bathroom with therapy today. She still denies any significant abdominal pain, but feels she is less tender. Still has some bloating without much improvement. Denies any nausea or vomiting. Tolerating solid foods. She is passing flatus and has had 3 loose bowel movements today. Right lower quadrant percutaneous drain had 80 cc documented output yesterday during day shift. Per nursing, patient has been downgraded to medical status with telemetry. Review of Systems Review of Systems: ROS unchanged Exam Const: General: comfortable and no acute distress Orientation/consciousness: patient oriented x3 Cardio: Rate: regular rate Rhythm: regular rhythm GI: Inspection: non-distended GI Palp: Yes Soft to palpation, Yes Tenderness to palpation present (GI) (minimal tenderness in RLQ near percutaneous drain), No Guarding due to palpation present (GI) and No Rebound tenderness present Auscultation: normal bowel sounds Other: Percutaneous drain exits RLQ with small amount of still some cloudy/purulent drainage that appears slightly more serosanguineous today, and the dressing dry and intact with no redness around the drain site Extrem: General: edema bilateral (2-3+ pitting edema in bilateral lower extremities) Psych: Insight: Good insight present (Psych) Judgement: Good judgement present (Psych) Objective Data Vital Signs Vital Signs: Vital Signs - 24 hr 11/07/22 14:27 11/07/22 14:00 11/07/22 16:22 Temperature 97.1 F L Pulse Rate 83 74 Respiratory Rate 20 Blood Pressure 104/60 Pulse Oximetry 100 Oxygen Delivery Room Air 11/07/22 16:00 11/07/22 18:00 11/07/22 20:00 Temperature 97.8 F Pulse Rate 73 73 69 Respiratory Rate 18 Blood Pressure 111/55 L Pulse Oximetry 99 Oxygen Delivery 11/07/22 20:00 11/07/22 20:00 11/07/22 22:00 Temperature Pulse Rate 73 73 68 Respiratory Rate 18 Blood Pressure Pulse Oximetry 99 Oxygen Delivery Room Air 11/07/22 23:27 11/08/22 00:00 11/08/22 04:00 Temperature 97.8 F Pulse Rate 64 62 58 L Respiratory Rate 18 Blood Pressure 106/57 L Pulse Oximetry 97 Oxygen Delivery 11/08/22 04:00 11/08/22 08:00 11/08/22 08:00 Temperature 98.0 F 97.8 F Pulse Rate 68 64 63 Respiratory Rate 20 16 Blood Pressure 117/61 114/59 L Pulse Oximetry 98 100 Oxygen Delivery 11/08/22 08:00 11/08/22 11:36 11/08/22 12:00 Temperature 97.5 F L Pulse Rate 81 Respiratory Rate 18 Blood Pressure 130/68 Pulse Oximetry 100 Oxygen Delivery Room Air Room Air Intake/Output Intake/Output: Intake & Output 11/05/22 11/06/22 11/07/22 11/08/22 23:59 23:59 23:59 23:59 Intake Total 5310 8080 1160 Output
[2022-11-08] MEDS: cefTRIAXone 2 GM/NS 100 ML 2 GM/100 ML BAG IVPB (15:10)
[2022-11-08 16:00] VITALS: BP 130/58; PULSE 69; RESP 16; TEMP 36.4; O2SAT 100
--- NOTE | 2022-11-08 17:02 | PM.IMPN ---
Progress Note: A&P Assessment and Plan (1) Abscess, retroperitoneal: Code(s): K68.19 - Other retroperitoneal abscess Status: Acute Assessment and Plan: Admit to IMU Patient started on broad-spectrum antibiotics Zosyn and Flagyl General surgery consult Supportive care Continue to monitor HPI-Narrative: This is a 72-year-old female with past medical history significant for hypothyroidism, GERD, iron deficiency anemia, multinodular goiter, orthostatic lightheadedness, osteoarthritis, osteopenia, post herpetic neuralgia act.? Patient presents to the emergency room due to generalized weakness abdominal pain, abdominal bloating, bilateral lower extremity edema, poor appetite, night sweats, chills generalized malaise.? Patient recently had colonoscopy exam for presumptive colon mass however was negative.? Patient has had worsening of symptoms in the last 2 weeks or so.? Preliminary workup was significant for alk phos 170, bilirubin 1.5 lactic acid 3.4, potassium 2.9.? A CT of abdomen and pelvis was reported as: 11/08/2022 Interval history: patient with complaint of abdominal pain, CT scan of the abdomen showed perforated appendix seen by surgery service recommended percutaneous drain to help drain, patient had drain placed on 11/06 the abscess draining dark yellow fluid, abscess culture is growing Provotella species and streptococcus millieri group, pending sensitivity, patient is being treated with ceftriaxone and Flagyl, today patient seen by surgery service started the patient on heart healthy diet, and will start PT OT, clinically patient is stable will continue to monitor. (2) Abdominal ascites: Code(s): R18.8 - Other ascites Status: Acute Assessment and Plan: Consider paracentesis Peritoneal fluid for analysis (3) Abdominal pain: Code(s): R10.9 - Unspecified abdominal pain Status: Acute Assessment and Plan: Likely secondary to retroperitoneal abscess Supportive care (4) Hypothyroidism (acquired): Code(s): E03.9 - Hypothyroidism, unspecified Status: Acute Assessment and Plan: Continue home meds Follow-up in outpatient setting (5) Hypokalemia: Code(s): E87.6 - Hypokalemia Status: Acute Assessment and Plan: Replace as needed Subjective Date/time seen: 11/08/22 17:02 HPI-Narrative: This is a 72-year-old female with past medical history significant for hypothyroidism, GERD, iron deficiency anemia, multinodular goiter, orthostatic lightheadedness, osteoarthritis, osteopenia, post herpetic neuralgia act.? Patient presents to the emergency room due to generalized weakness abdominal pain, abdominal bloating, bilateral lower extremity edema, poor appetite, night sweats, chills generalized malaise.? Patient recently had colonoscopy exam for presumptive colon mass however was negative.? Patient has had worsening of symptoms in the last 2 weeks or so.? Preliminary workup was significant for alk phos 170, bilirubin 1.5 lactic acid 3.4, potassium 2.9.? A CT of abdomen and pelvis was reported as: 11/08/2022 Interval history: patient with complaint of abdominal pain, CT scan of the abdomen showed perforated appendix seen by surgery service recommended percutaneous drain to help drain, patient had drain placed on 11/06 the abscess draining dark yellow fluid, abscess culture is growing Provotella species and streptococcus millieri group, pending sensitivity, patient is being treated with ceftriaxone and Flagyl, today patient seen by surgery service started the patient on heart healthy diet, and will start PT OT, clinically patient is stable will continue to monitor. Review of Systems Constitutional: Constitutional: Denies chills, Reports fatigue, Reports lethargy, Reports malaise, Reports night sweats, Reports poor appetite, Reports weakness and Reports weight loss Exam Narrative: Patient is comfortable, NAD HEENT: eyes are clear and none icteric
[2022-11-08 17:19] LABS: Glucose Point of Care 91 mg/dl (65-105)
[2022-11-08 20:00] VITALS: BP 97/46; PULSE 61; PULSE 63; RESP 16; TEMP 36.8; O2SAT 98
[2022-11-08 20:11] LABS: Glucose Point of Care 118 mg/dl (65-105)
[2022-11-08 20:27] LABS: Glucose Peritoneal Fluid 77 mg/dL; LDH Peritoneal Fluid 23 U/L (<63); Total Protein Peritoneal Fluid <3.0 g/dL
[2022-11-09] VITALS (11 sets, daily range): BP systolic 104–133; BP diastolic 52–75; PULSE 61–112; RESP 16–20; TEMP 36.1–36.9; O2SAT 97–100
[2022-11-09] MEDS: metroNIDAZOLE 500 MG/ISO 100ML 500 MG/100 ML BAG 100 MG IVPB ×4 (00:28→21:57)
[2022-11-09 05:01] LABS: Hematocrit 29.3 % (37.0-47.0); Hemoglobin 9.2 g/dL (12.0-15.0); Mean Corpuscular HGB Conc 31.4 g/dl (32-36); Mean Corpuscular Hemoglobin 29.8 pg (26-34); Mean Corpuscular Volume 94.8 fl (80-100); Mean Platelet Volume 10.1 fl (7.4-10.4); Platelet Count Result 268 k/mm3 (150-375); Red Blood Count 3.09 M/mm3 (4.2-5.4); Red Cell Distribution Width 17.2 % (11.5-14.5); White Blood Count 7.8 K/mm3 (4.5-10.0)
[2022-11-09 05:12] LABS: Alanine Aminotransferase 25 U/L (6-35); Albumin Level 1.9 g/dL (3.5-5.1); Alkaline Phosphatase 141 U/L (38-126); Anion Gap 0 mmol/L (8-16); Aspartate Amino Transferase 29 U/L (14-36); Bilirubin,Total 0.8 mg/dL (0.2-1.3); Blood Urea Nitrogen 6 mg/dL (7-17); Calcium 7.1 mg/dL (8.4-10.2); Carbon Dioxide 25 mmol/L (22-30); Chloride 108 mmol/L (98-107); Estimated CRCL calculation 56 ml/min; Estimated Glomerular Filt Rate > 60; Glucose 82 mg/dL (65-110); Magnesium 2.3 mg/dL (1.6-2.3); Potassium 3.6 mmol/L (3.4-5.0); Sodium 133 mmol/L (137-145)
[2022-11-09 07:53] LABS: Glucose Point of Care 90 mg/dl (65-105)
[2022-11-09] MEDS: traMADol HCL (*CRX) 50 MG TABLET PO (08:27)
[2022-11-09] MEDS: ONDANSETRON INJ 4 MG/2 ML VIAL IV PUSH (08:28)
[2022-11-09 11:45] LABS: Glucose Point of Care 109 mg/dl (65-105)
[2022-11-09] MEDS: cefTRIAXone 2 GM/NS 100 ML 2 GM/100 ML BAG IVPB (11:47)
--- NOTE | 2022-11-09 15:57 | PM.IMPN ---
Progress Note: A&P Assessment and Plan (1) Abscess, retroperitoneal: Code(s): K68.19 - Other retroperitoneal abscess Status: Acute Assessment and Plan: Admit to IMU Patient started on broad-spectrum antibiotics Zosyn and Flagyl General surgery consult Supportive care Continue to monitor HPI-Narrative: This is a 72-year-old female with past medical history significant for hypothyroidism, GERD, iron deficiency anemia, multinodular goiter, orthostatic lightheadedness, osteoarthritis, osteopenia, post herpetic neuralgia act.? Patient presents to the emergency room due to generalized weakness abdominal pain, abdominal bloating, bilateral lower extremity edema, poor appetite, night sweats, chills generalized malaise.? Patient recently had colonoscopy exam for presumptive colon mass however was negative.? Patient has had worsening of symptoms in the last 2 weeks or so.? Preliminary workup was significant for alk phos 170, bilirubin 1.5 lactic acid 3.4, potassium 2.9.? A CT of abdomen and pelvis was reported as: 11/09/2022 Interval history: patient with complaint of abdominal pain, CT scan of the abdomen showed perforated appendix seen by surgery service recommended percutaneous drain to help drain, patient had drain placed on 11/06 the abscess draining dark yellow fluid, abscess culture is growing Provotella species and streptococcus millieri group, pending sensitivity, patient is being treated with ceftriaxone and Flagyl, repeat CT scan of abdomen showed complete resulution of the abscess, the scan does show large ascites, will do paracentesis, patient seen by surgery service started the patient on heart healthy diet, and will start PT OT, clinically patient is stable will continue to monitor. (2) Abdominal ascites: Code(s): R18.8 - Other ascites Status: Acute Assessment and Plan: Consider paracentesis Peritoneal fluid for analysis (3) Abdominal pain: Code(s): R10.9 - Unspecified abdominal pain Status: Acute Assessment and Plan: Likely secondary to retroperitoneal abscess Supportive care (4) Hypothyroidism (acquired): Code(s): E03.9 - Hypothyroidism, unspecified Status: Acute Assessment and Plan: Continue home meds Follow-up in outpatient setting (5) Hypokalemia: Code(s): E87.6 - Hypokalemia Status: Acute Assessment and Plan: Replace as needed Subjective Date/time seen: 11/09/22 15:57 HPI-Narrative: This is a 72-year-old female with past medical history significant for hypothyroidism, GERD, iron deficiency anemia, multinodular goiter, orthostatic lightheadedness, osteoarthritis, osteopenia, post herpetic neuralgia act.? Patient presents to the emergency room due to generalized weakness abdominal pain, abdominal bloating, bilateral lower extremity edema, poor appetite, night sweats, chills generalized malaise.? Patient recently had colonoscopy exam for presumptive colon mass however was negative.? Patient has had worsening of symptoms in the last 2 weeks or so.? Preliminary workup was significant for alk phos 170, bilirubin 1.5 lactic acid 3.4, potassium 2.9.? A CT of abdomen and pelvis was reported as: 11/09/2022 Interval history: patient with complaint of abdominal pain, CT scan of the abdomen showed perforated appendix seen by surgery service recommended percutaneous drain to help drain, patient had drain placed on 11/06 the abscess draining dark yellow fluid, abscess culture is growing Provotella species and streptococcus millieri group, pending sensitivity, patient is being treated with ceftriaxone and Flagyl, repeat CT scan of abdomen showed complete resulution of the abscess, the scan does show large ascites, will do paracentesis, patient seen by surgery service started the patient on heart healthy diet, and will start PT OT, clinically patient is stable will continue to monitor. Exam Narrative: Patient is comfortable, NAD HEENT: eyes a
[2022-11-09 16:33] LABS: Glucose Point of Care 148 mg/dl (65-105)
--- NOTE | 2022-11-09 16:59 | PM.PNGS ---
Progress Note: A&P Assessment and Plan (1) Abscess, retroperitoneal: Code(s): K68.19 - Other retroperitoneal abscess Status: Acute Assessment and Plan: S/p percutaneous drainage in Radiology on 11/06, cultures have preliminary results of Prevotella species and streptococcus milleri group. Blood cx NGTD. Tolerating a solid diet. Continue IV Rocephin and Flagyl for now, and plan to switch to oral antibiotics on discharge in the next 1-2 days if continues to improve. Repeat a CT scan abdomen/pelvis with IV contrast today showed no residual abscess, will plan to remove drain in the next 1-2 days if she continues to improve Still has generalized weakness, although improving. Continue PT/OT. Patient lives at home alone and will need senior living placement for rehab on discharge. She is agreeable to SNF placement. Plan I have discussed the patient's case and plan of care with Dr. Haddad. Subjective Subjective Date/Time Seen: 11/09/22 14:49 Patient reports: no new complaints, feels better, flatus, bowel movement and afebrile Interval history: Patient continues to improve. She does report some right lower quadrant abdominal pain at the area her percutaneous drain exit site. She reportedly was sitting up in the chair for a long period of time this morning and felt it aggravated the drain. When she began to have pain she also had some slight nausea, which has since resolved. No vomiting. Still moving her bowels, but reportedly having loose bowel movements. No other complaints at this time. Continues to feel slightly stronger and is working with therapy. Review of Systems Review of Systems: ROS unchanged Exam Const: General: comfortable and no acute distress Orientation/consciousness: patient oriented x3 GI: Inspection: other (mildly distended) GI Palp: Yes Soft to palpation, Yes Tenderness to palpation present (GI) (RLQ near perc drain exit site), No Guarding due to palpation present (GI) and No Rebound tenderness present Auscultation: normal bowel sounds Other: Percutaneous drain exits RLQ with small amount of still some cloudy drainage that appears slightly more serosanguineous today, and the dressing dry and intact with no redness around the drain site Extrem: General: pedal edema Psych: Insight: Good insight present (Psych) Judgement: Good judgement present (Psych) Objective Data Vital Signs Vital Signs: Vital Signs - 24 hr 11/08/22 20:00 11/08/22 20:00 11/08/22 20:00 Temperature 98.2 F Pulse Rate 63 61 Respiratory Rate 16 Blood Pressure 97/46 L Pulse Oximetry 98 Oxygen Delivery Room Air 11/09/22 00:00 11/09/22 00:00 11/09/22 04:00 Temperature 97.7 F Pulse Rate 72 67 61 Respiratory Rate 18 Blood Pressure 111/64 Pulse Oximetry 100 Oxygen Delivery 11/09/22 04:00 11/09/22 08:03 11/09/22 07:35 Temperature 98.5 F 96.9 F L Pulse Rate 65 96 112 H Respiratory Rate 16 20 18 Blood Pressure 114/57 L 133/75 Pulse Oximetry 100 100 98 Oxygen Delivery Room Air 11/09/22 08:00 11/09/22 08:00 11/09/22 11:45 Temperature 98.2 F Pulse Rate 95 73 Respiratory Rate 20 Blood Pressure 111/59 L Pulse Oximetry 97 Oxygen Delivery Room Air 11/09/22 12:00 11/09/22 16:38 Temperature 97.5 F L Pulse Rate 82 76 Respiratory Rate 20 Blood Pressure 117/61 Pulse Oximetry 99 Oxygen Delivery Intake/Output Intake/Output: Intake & Output 11/06/22 11/07/22 11/08/22 11/09/22 23:59 23:59 23:59 23:59 Intake Total 1690 2490 3070 1180 Output Total 2170 1730 800 56 Balance -310 962 4782 1124 Meds/Results Medications: Active Medications Generic Name Dose Route Start Last Admin Trade Name Freq PRN Reason Stop Dose Admin Dextrose 12.5 gm 11/07/22 06:23 Dextrose 50% 25 Gm/50 Ml Syringe IV PUSH PRN PRN Hypoglycemia Protocol Glucagon 1 mg 11/07/22 06:23 Glucagon For Inj 1 Mg Vial IM PRN PRN Hypoglycemia
[2022-11-09 17:08] LABS: Albumin Level 2.2 g/dL (3.5-5.1)
[2022-11-09 17:09] LABS: Amylase Peritoneal Fluid <10 U/L; Lipase Peritoneal Fluid 5 U/L (<10)
[2022-11-09 20:27] LABS: Source Peritoneal Fluid Peritoneal Fluid
[2022-11-09 20:28] LABS: Appearance Peritoneal Fluid Hazy (Clear); Color Peritoneal Fluid Yellow (Colorless); Lymphocytes Peritoneal Fluid 60 %; Macrophages Peritoneal Fluid 26 %; Neutrophils Peritoneal Fluid 14 % (0-25); Nucleated Cells Peritoneal Flu 157 /uL (0-500); RBC Peritoneal Fluid < 2000 /uL (0-100000)
[2022-11-09 20:56] LABS: Glucose Point of Care 147 mg/dl (65-105)
[2022-11-10] VITALS (7 sets, daily range): BP systolic 100–128; BP diastolic 54–66; PULSE 64–84; RESP 12–16; TEMP 36.2–36.8; O2SAT 98–100
[2022-11-10] MEDS: traMADol HCL (*CRX) 50 MG TABLET PO ×2 (00:49→13:31)
[2022-11-10 05:15] LABS: Hematocrit 30.4 % (37.0-47.0); Hemoglobin 9.7 g/dL (12.0-15.0); Mean Corpuscular HGB Conc 31.9 g/dl (32-36); Mean Corpuscular Hemoglobin 29.9 pg (26-34); Mean Corpuscular Volume 93.8 fl (80-100); Mean Platelet Volume 9.8 fl (7.4-10.4); Platelet Count Result 302 k/mm3 (150-375); Red Blood Count 3.24 M/mm3 (4.2-5.4); Red Cell Distribution Width 17.3 % (11.5-14.5); White Blood Count 11.9 K/mm3 (4.5-10.0)
[2022-11-10 05:29] LABS: Alanine Aminotransferase 24 U/L (6-35); Albumin Level 1.9 g/dL (3.5-5.1); Alkaline Phosphatase 143 U/L (38-126); Anion Gap -1 mmol/L (8-16); Aspartate Amino Transferase 29 U/L (14-36); Bilirubin,Total 0.8 mg/dL (0.2-1.3); Blood Urea Nitrogen 6 mg/dL (7-17); Calcium 7.4 mg/dL (8.4-10.2); Carbon Dioxide 26 mmol/L (22-30); Chloride 108 mmol/L (98-107); Estimated CRCL calculation 47 ml/min; Estimated Glomerular Filt Rate > 60; Glucose 96 mg/dL (65-110); Lactate Dehydrogenase 170 U/L (120-246); Magnesium 2.3 mg/dL (1.6-2.3); Potassium 3.5 mmol/L (3.4-5.0); Sodium 133 mmol/L (137-145)
[2022-11-10] MEDS: metroNIDAZOLE 500 MG/ISO 100ML 500 MG/100 ML BAG 100 MG IVPB ×3 (06:17→21:35)
[2022-11-10 08:02] LABS: Glucose Point of Care 104 mg/dl (65-105)
--- NOTE | 2022-11-10 10:52 | PCNFU ---
Nutrition Follow-Up Complete: Inadequate oral intake related to loss of appetite as evidence by patient report of 20 lb weight loss, acute illness Goal: Adequate PO intake once diet is advanced - Progressing. Advanced to full liquids Pt current nutrition is Full liquid diet. Just advanced from NPO. Intakes 50-100% on previous heart healthy. Nutrition recommendation: Advance diet per MD as tolerated Last recorded weight is 78.1 kg. Bowel Motility: Last BM +1 11/10/22 Labs Reviewed: Hgb 9.7, Hct 30.4, Alb 1.9, Na 133 Meds Noted: Immodium, Zofran Skin: WNL Additional Notes: Plan for abscess removal today. Diet was just advanced from NPO. Continue current care plan. Monitoring diet advancement, plan of care, weights, labs, intakes Follow up in 5 days
--- NOTE | 2022-11-10 11:39 | WPDPN ---
Progress Note: A&P Assessment and Plan (1) Abscess, retroperitoneal: Code(s): K68.19 - Other retroperitoneal abscess Status: Acute Assessment and Plan: Follow-up CT scan shows that the abscess has resolved after percutaneous drainage. She remains on IV antibiotics for now. Plans are for [facility] to go to [facility] or inpatient [facility]hab facility. Awaiting position now as per case management. I did speak with the Infectious Disease pharmacist and he has made recommendations for conversion to an appropriate oral antibiotic at the time of discharge. Will plan on keeping her on oral antibiotics for 2 weeks after discharge. I have discussed with her perform an interval laparoscopic appendectomy in about 6 weeks. We will see her back in the office in about 2 weeks after discharge to plan elective surgery. Plan on removing the right lower quadrant drain prior to her discharge to rehab or the [facility] facility. Subjective Date/time seen: 11/10/22 11:39 Interval history: Patient is weak and PT/ OT is working with her. Drain output has been minimal. She is on the appropriate IV antibiotics with combinations at the time of discharge convert to oral antibiotics as per the Infectious Disease pharmacist recommendations. My understanding is that she is going to be transferred to a [facility] facility or inpatient rehab. Her diet has been advanced to regular diet today. Exam Narrative: The abdomen is soft and nondistended. No tenderness the right lower quadrant. The drain site is dry and clean. Minimal to no purulent output. Objective Data Vital Signs Vital Signs: Vital Signs - 24 hr 11/09/22 11:45 11/09/22 12:00 11/09/22 16:38 Temperature 36.8 C 36.4 C L Pulse Rate 73 82 76 Respiratory Rate 20 20 Blood Pressure 111/59 L 117/61 Pulse Oximetry 97 99 Oxygen Delivery 11/09/22 16:00 11/09/22 20:00 11/09/22 20:00 Temperature 36.8 C Pulse Rate 77 78 77 Respiratory Rate 16 Blood Pressure 104/52 L Pulse Oximetry 99 Oxygen Delivery 11/09/22 20:00 11/09/22 23:48 11/10/22 04:00 Temperature 36.6 C 36.3 C L Pulse Rate 69 70 Respiratory Rate 16 16 Blood Pressure 114/57 L 100/54 L Pulse Oximetry 99 98 Oxygen Delivery Room Air 11/10/22 00:00 11/10/22 04:00 11/10/22 08:00 Temperature 36.4 C L Pulse Rate 69 64 71 Respiratory Rate 12 Blood Pressure 116/63 Pulse Oximetry 100 Oxygen Delivery 11/10/22 08:00 Temperature Pulse Rate 71 Respiratory Rate Blood Pressure Pulse Oximetry Oxygen Delivery Intake/Output Intake/Output: Intake & Output 11/07/22 11/08/22 11/09/22 11/10/22 23:59 23:59 23:59 23:59 Intake Total 2490 3070 1520 300 Output Total 8537 831 4429 Balance 760 2270 114 300 Meds/Results Medications: Active Medications Generic Name Dose Route Start Last Admin Trade Name Freq PRN Reason Stop Dose Admin Dextrose 12.5 gm 11/07/22 06:23 Dextrose 50% 25 Gm/50 Ml Syringe IV PUSH PRN PRN Hypoglycemia Protocol Glucagon 1 mg 11/07/22 06:23 Glucagon For Inj 1 Mg Vial IM PRN PRN Hypoglycemia Protocol Glucose 15 gm 11/07/22 06:23 Glucose Oral Gel 15 Gm Of Glucse In 37.5 Gm Tube PO PRN PRN Hypoglycemia Protocol Metronidazole 500 mg in 100 mls @ 100 mls/hr 11/06/22 06:00 11/10/22 06:17 Flagyl 500 Mg/Iso Soln 100 Ml IVPB 100 mls/hr Q8H CHAPO Administration Dextrose 1,000 mls @ 100 mls/hr 11/07/22 06:23 Dextrose 5% 1,000 Ml IVPB PRN PRN Hypoglycemia Protocol Ceftriaxone Sodium 2 gm in 100 mls @ 200 mls/hr 11/08/22 13:00 11/09/22 12:17 Rocephin 2 Gm/Ns 100 Ml IVPB Infused DAILY@1200 CHAPO Infusion Loperamide HCl 2 mg 11/09/22 16:15 Loperamide Hcl 2 Mg Capsule PO PRN PRN Diarrhea Ondansetron HCl 4 mg 11/05/22 20:23 11/09/22 08:28 Ondansetron Inj 4 Mg/2 Ml Vial IV PUSH 4 mg Q4H PRN Administration Na
[2022-11-10 11:47] LABS: Glucose Point of Care 114 mg/dl (65-105)
[2022-11-10] MEDS: cefTRIAXone 2 GM/NS 100 ML 2 GM/100 ML BAG IVPB (13:00)
[2022-11-10] MEDS: LOPERAMIDE HCL 2 MG CAPSULE PO (13:29)
[2022-11-10 16:47] LABS: Glucose Point of Care 118 mg/dl (65-105)
--- NOTE | 2022-11-10 17:22 | PM.IMPN ---
Progress Note: A&P Assessment and Plan (1) Abscess, retroperitoneal: Code(s): K68.19 - Other retroperitoneal abscess Status: Acute Assessment and Plan: Admit to IMU Patient started on broad-spectrum antibiotics Zosyn and Flagyl General surgery consult Supportive care Continue to monitor HPI-Narrative: This is a 72-year-old female with past medical history significant for hypothyroidism, GERD, iron deficiency anemia, multinodular goiter, orthostatic lightheadedness, osteoarthritis, osteopenia, post herpetic neuralgia act.? Patient presents to the emergency room due to generalized weakness abdominal pain, abdominal bloating, bilateral lower extremity edema, poor appetite, night sweats, chills generalized malaise.? Patient recently had colonoscopy exam for presumptive colon mass however was negative.? Patient has had worsening of symptoms in the last 2 weeks or so.? Preliminary workup was significant for alk phos 170, bilirubin 1.5 lactic acid 3.4, potassium 2.9.? A CT of abdomen and pelvis was reported as: 11/10/2022 Interval history: patient with complaint of abdominal pain, CT scan of the abdomen showed perforated appendix seen by surgery service recommended percutaneous drain to help drain, patient had drain placed on 11/06 the abscess draining dark yellow fluid, abscess culture is growing Provotella species and streptococcus millieri group, pending sensitivity, patient is being treated with ceftriaxone and Flagyl, repeat CT scan of abdomen showed complete resolution of the abscess, today patient was seen by her surgeon recommended upon discharge switch to oral antibiotic for 2 weeks, and removed the drain, also the scan does show large ascites, today patient had paracentesis and 1300 cc hazzy fluids was removed, most likely transudate will follow-up on the labs and further recommendation to follow, patient seen by surgery service started the patient on heart healthy diet, and will start PT OT, clinically patient is stable will continue to monitor. Patient complains of palpitation with exertion this is a chronic for the patient and has seen by the Cardiology and workup is in progress patient is supposed to follow-up with her marketing support assistant however ended up in the hospital. Remains clinically stable. (2) Abdominal ascites: Code(s): R18.8 - Other ascites Status: Acute Assessment and Plan: Consider paracentesis Peritoneal fluid for analysis (3) Abdominal pain: Code(s): R10.9 - Unspecified abdominal pain Status: Acute Assessment and Plan: Likely secondary to retroperitoneal abscess Supportive care (4) Hypothyroidism (acquired): Code(s): E03.9 - Hypothyroidism, unspecified Status: Acute Assessment and Plan: Continue home meds Follow-up in outpatient setting (5) Hypokalemia: Code(s): E87.6 - Hypokalemia Status: Acute Assessment and Plan: Replace as needed Subjective Date/time seen: 11/10/22 17:22 HPI-Narrative: This is a 72-year-old female with past medical history significant for hypothyroidism, GERD, iron deficiency anemia, multinodular goiter, orthostatic lightheadedness, osteoarthritis, osteopenia, post herpetic neuralgia act.? Patient presents to the emergency room due to generalized weakness abdominal pain, abdominal bloating, bilateral lower extremity edema, poor appetite, night sweats, chills generalized malaise.? Patient recently had colonoscopy exam for presumptive colon mass however was negative.? Patient has had worsening of symptoms in the last 2 weeks or so.? Preliminary workup was significant for alk phos 170, bilirubin 1.5 lactic acid 3.4, potassium 2.9.? A CT of abdomen and pelvis was reported as: 11/10/2022 Interval history: patient with complaint of abdominal pain, CT scan of the abdomen showed perforated appendix seen by surgery service recommended percutaneous drain to help drain, patient had drain placed on 11/06 the abscess drainin
[2022-11-10 22:39] LABS: Glucose Point of Care 108 mg/dl (65-105)
[2022-11-11] VITALS (9 sets, daily range): BP systolic 114–117; BP diastolic 58–70; PULSE 64–79; RESP 14–18; TEMP 36.2–36.3; O2SAT 96–100
[2022-11-11] MEDS: LOPERAMIDE HCL 2 MG CAPSULE PO ×3 (04:37→20:22)
[2022-11-11] MEDS: metroNIDAZOLE 500 MG/ISO 100ML 500 MG/100 ML BAG 100 MG IVPB ×3 (05:11→21:08)
[2022-11-11 06:36] LABS: Hematocrit 30.6 % (37.0-47.0); Hemoglobin 9.4 g/dL (12.0-15.0); Mean Corpuscular HGB Conc 30.7 g/dl (32-36); Mean Corpuscular Hemoglobin 30.2 pg (26-34); Mean Corpuscular Volume 98.4 fl (80-100); Mean Platelet Volume 9.8 fl (7.4-10.4); Platelet Count Result 240 k/mm3 (150-375); Red Blood Count 3.11 M/mm3 (4.2-5.4); Red Cell Distribution Width 17.3 % (11.5-14.5); White Blood Count 10.8 K/mm3 (4.5-10.0)
[2022-11-11 06:50] LABS: Alanine Aminotransferase 22 U/L (6-35); Albumin Level 1.9 g/dL (3.5-5.1); Alkaline Phosphatase 130 U/L (38-126); Anion Gap 3 mmol/L (8-16); Aspartate Amino Transferase 28 U/L (14-36); Bilirubin,Total 0.8 mg/dL (0.2-1.3); Blood Urea Nitrogen 5 mg/dL (7-17); Calcium 7.4 mg/dL (8.4-10.2); Carbon Dioxide 20 mmol/L (22-30); Chloride 108 mmol/L (98-107); Estimated CRCL calculation 58 ml/min; Estimated Glomerular Filt Rate > 60; Glucose 86 mg/dL (65-110); Magnesium 2.2 mg/dL (1.6-2.3); Potassium 3.2 mmol/L (3.4-5.0); Sodium 131 mmol/L (137-145)
--- NOTE | 2022-11-11 06:56 | PC.NURSE ---
At 22:00 on 11/10/2022 patient noticed leaking coming from percutaneous drain on right side. Charge nurse assisted me in changing saturated gauze, site still remains to look in excellent shape, will continue to monitor.
[2022-11-11] MEDS: ONDANSETRON INJ 4 MG/2 ML VIAL IV PUSH ×3 (08:12→18:47)
[2022-11-11 08:43] LABS: Glucose Point of Care 85 mg/dl (65-105)
[2022-11-11] MEDS: cefTRIAXone 2 GM/NS 100 ML 2 GM/100 ML BAG IVPB (11:00)
--- NOTE | 2022-11-11 11:35 | PM.IMPN ---
Progress Note: A&P Assessment and Plan (1) Abscess, retroperitoneal: Code(s): K68.19 - Other retroperitoneal abscess Status: Acute Assessment and Plan: Admit to IMU Patient started on broad-spectrum antibiotics Zosyn and Flagyl General surgery consult Supportive care Continue to monitor HPI-Narrative: This is a 72-year-old female with past medical history significant for hypothyroidism, GERD, iron deficiency anemia, multinodular goiter, orthostatic lightheadedness, osteoarthritis, osteopenia, post herpetic neuralgia act.? Patient presents to the emergency room due to generalized weakness abdominal pain, abdominal bloating, bilateral lower extremity edema, poor appetite, night sweats, chills generalized malaise.? Patient recently had colonoscopy exam for presumptive colon mass however was negative.? Patient has had worsening of symptoms in the last 2 weeks or so.? Preliminary workup was significant for alk phos 170, bilirubin 1.5 lactic acid 3.4, potassium 2.9.? A CT of abdomen and pelvis was reported as: 11/11/2022 Interval history: patient with complaint of abdominal pain, CT scan of the abdomen showed perforated appendix seen by surgery service recommended percutaneous drain to help drain, patient had drain placed on 11/06 the abscess draining dark yellow fluid, abscess culture is growing Provotella species and streptococcus millieri group, pending sensitivity, patient is being treated with ceftriaxone and Flagyl, repeat CT scan of abdomen showed complete resolution of the abscess, today patient was seen by her surgeon recommended upon discharge switch to oral antibiotic for 2 weeks, and removed the drain, also the scan does show large ascites, today patient had paracentesis and 1300 cc hazzy fluids was removed, most likely transudate will follow-up on the labs and further recommendation to follow, patient seen by surgery service started the patient on heart healthy diet, and will start PT OT, clinically patient is stable will continue to monitor. Patient complains of palpitation with exertion this is a chronic for the patient and has seen by the Cardiology and workup is in progress patient is supposed to follow-up with her parts person however ended up in the hospital. Remains clinically stable. Today patient is nauseated will get Zofran and monitor, patient will be discharged to SNF for rehab pending insurance authorization will continue to monitor (2) Abdominal ascites: Code(s): R18.8 - Other ascites Status: Acute Assessment and Plan: Consider paracentesis Peritoneal fluid for analysis (3) Abdominal pain: Code(s): R10.9 - Unspecified abdominal pain Status: Acute Assessment and Plan: Likely secondary to retroperitoneal abscess Supportive care (4) Hypothyroidism (acquired): Code(s): E03.9 - Hypothyroidism, unspecified Status: Acute Assessment and Plan: Continue home meds Follow-up in outpatient setting (5) Hypokalemia: Code(s): E87.6 - Hypokalemia Status: Acute Assessment and Plan: Replace as needed Subjective Date/time seen: 11/11/22 11:35 HPI-Narrative: This is a 72-year-old female with past medical history significant for hypothyroidism, GERD, iron deficiency anemia, multinodular goiter, orthostatic lightheadedness, osteoarthritis, osteopenia, post herpetic neuralgia act.? Patient presents to the emergency room due to generalized weakness abdominal pain, abdominal bloating, bilateral lower extremity edema, poor appetite, night sweats, chills generalized malaise.? Patient recently had colonoscopy exam for presumptive colon mass however was negative.? Patient has had worsening of symptoms in the last 2 weeks or so.? Preliminary workup was significant for alk phos 170, bilirubin 1.5 lactic acid 3.4, potassium 2.9.? A CT of abdomen and pelvis was reported as: 11/11/2022 Interval history: patient with complaint of abdominal pain, CT scan of the
[2022-11-11 12:33] LABS: Glucose Point of Care 146 mg/dl (65-105)
[2022-11-11 17:08] LABS: Glucose Point of Care 113 mg/dl (65-105)
[2022-11-11] MEDS: traMADol HCL (*CRX) 50 MG TABLET PO (18:47)
[2022-11-11 20:49] LABS: Glucose Point of Care 130 mg/dl (65-105)
[2022-11-11 21:17] LABS: Albumin Peritoneal Fluid 0.2 g/dL
[2022-11-12] VITALS (9 sets, daily range): BP systolic 103–117; BP diastolic 52–71; PULSE 63–137; RESP 14–18; TEMP 36.4–37.1; O2SAT 99–100
[2022-11-12] MEDS: metroNIDAZOLE 500 MG/ISO 100ML 500 MG/100 ML BAG 100 MG IVPB ×3 (05:29→21:22)
[2022-11-12 06:11] LABS: Hematocrit 30.2 % (37.0-47.0); Hemoglobin 9.6 g/dL (12.0-15.0); Mean Corpuscular HGB Conc 31.8 g/dl (32-36); Mean Corpuscular Hemoglobin 30.3 pg (26-34); Mean Corpuscular Volume 95.3 fl (80-100); Mean Platelet Volume 10.1 fl (7.4-10.4); Platelet Count Result 270 k/mm3 (150-375); Red Blood Count 3.17 M/mm3 (4.2-5.4); Red Cell Distribution Width 17.3 % (11.5-14.5); White Blood Count 9.9 K/mm3 (4.5-10.0)
[2022-11-12 06:26] LABS: Alanine Aminotransferase 23 U/L (6-35); Albumin Level 1.9 g/dL (3.5-5.1); Alkaline Phosphatase 133 U/L (38-126); Anion Gap 0 mmol/L (8-16); Aspartate Amino Transferase 31 U/L (14-36); Bilirubin,Total 0.8 mg/dL (0.2-1.3); Blood Urea Nitrogen 4 mg/dL (7-17); Calcium 7.5 mg/dL (8.4-10.2); Carbon Dioxide 26 mmol/L (22-30); Chloride 108 mmol/L (98-107); Estimated CRCL calculation 58 ml/min; Estimated Glomerular Filt Rate > 60; Glucose 88 mg/dL (65-110); Magnesium 2.1 mg/dL (1.6-2.3); Potassium 3.2 mmol/L (3.4-5.0); Sodium 134 mmol/L (137-145)
[2022-11-12 07:37] LABS: Glucose Point of Care 81 mg/dl (65-105)
[2022-11-12] MEDS: ONDANSETRON INJ 4 MG/2 ML VIAL IV PUSH (09:00)
[2022-11-12] MEDS: POTASSIUM CHLORIDE 20 MEQ TABLET 40 MEQ PO (09:09)
[2022-11-12] MEDS: LOPERAMIDE HCL 2 MG CAPSULE PO ×3 (09:09→16:47)
[2022-11-12 11:56] LABS: Glucose Point of Care 165 mg/dl (65-105)
--- NOTE | 2022-11-12 12:35 | PM.IMPN ---
Progress Note: A&P Assessment and Plan (1) Abscess, retroperitoneal: Code(s): K68.19 - Other retroperitoneal abscess Status: Acute Assessment and Plan: Admit to IMU Patient started on broad-spectrum antibiotics Zosyn and Flagyl General surgery consult Supportive care Continue to monitor HPI-Narrative: This is a 72-year-old female with past medical history significant for hypothyroidism, GERD, iron deficiency anemia, multinodular goiter, orthostatic lightheadedness, osteoarthritis, osteopenia, post herpetic neuralgia act.? Patient presents to the emergency room due to generalized weakness abdominal pain, abdominal bloating, bilateral lower extremity edema, poor appetite, night sweats, chills generalized malaise.? Patient recently had colonoscopy exam for presumptive colon mass however was negative.? Patient has had worsening of symptoms in the last 2 weeks or so.? Preliminary workup was significant for alk phos 170, bilirubin 1.5 lactic acid 3.4, potassium 2.9.? A CT of abdomen and pelvis was reported as: 11/12/2022 Interval history: patient with complaint of abdominal pain, CT scan of the abdomen showed perforated appendix seen by surgery service recommended percutaneous drain to help drain, patient had drain placed on 11/06 the abscess draining dark yellow fluid, abscess culture is growing Provotella species and streptococcus millieri group, pending sensitivity, patient is being treated with ceftriaxone and Flagyl, repeat CT scan of abdomen showed complete resolution of the abscess, today patient was seen by her surgeon recommended upon discharge switch to oral antibiotic for 2 weeks, and removed the drain, also the scan does show large ascites, today patient had paracentesis and 1300 cc hazzy fluids was removed, most likely transudate will follow-up on the labs and further recommendation to follow, patient seen by surgery service started the patient on heart healthy diet, and will start PT OT, clinically patient is stable will continue to monitor. Patient complains of palpitation with exertion this is a chronic for the patient and has seen by the Cardiology and workup is in progress patient is supposed to follow-up with her slitter helper however ended up in the hospital. Remains clinically stable. Today patient is nauseated will get Zofran and monitor, also complains her insight is enlarged will gently diurese the patient, will monitor will be discharged to SNF for rehab pending insurance authorization will continue to monitor (2) Abdominal ascites: Code(s): R18.8 - Other ascites Status: Acute Assessment and Plan: Consider paracentesis Peritoneal fluid for analysis (3) Abdominal pain: Code(s): R10.9 - Unspecified abdominal pain Status: Acute Assessment and Plan: Likely secondary to retroperitoneal abscess Supportive care (4) Hypothyroidism (acquired): Code(s): E03.9 - Hypothyroidism, unspecified Status: Acute Assessment and Plan: Continue home meds Follow-up in outpatient setting (5) Hypokalemia: Code(s): E87.6 - Hypokalemia Status: Acute Assessment and Plan: Replace as needed Subjective Date/time seen: 11/12/22 12:35 HPI-Narrative: This is a 72-year-old female with past medical history significant for hypothyroidism, GERD, iron deficiency anemia, multinodular goiter, orthostatic lightheadedness, osteoarthritis, osteopenia, post herpetic neuralgia act.? Patient presents to the emergency room due to generalized weakness abdominal pain, abdominal bloating, bilateral lower extremity edema, poor appetite, night sweats, chills generalized malaise.? Patient recently had colonoscopy exam for presumptive colon mass however was negative.? Patient has had worsening of symptoms in the last 2 weeks or so.? Preliminary workup was significant for alk phos 170, bilirubin 1.5 lactic acid 3.4, potassium 2.9.? A CT of abdomen and pelvis was reported as: 11/12/2022
[2022-11-12] MEDS: cefTRIAXone 2 GM/NS 100 ML 2 GM/100 ML BAG IVPB (13:34)
[2022-11-12] MEDS: FUROSEMIDE INJ 40 MG/4 ML VIAL 20 MG IV PUSH (15:23)
[2022-11-12 16:45] LABS: Glucose Point of Care 136 mg/dl (65-105)
[2022-11-12 22:02] LABS: Glucose Point of Care 141 mg/dl (65-105)
[2022-11-13] VITALS (9 sets, daily range): BP systolic 117–127; BP diastolic 58–69; PULSE 61–81; RESP 14–16; TEMP 36.2–36.5; O2SAT 99–100
[2022-11-13] MEDS: ONDANSETRON INJ 4 MG/2 ML VIAL IV PUSH (05:24)
[2022-11-13] MEDS: metroNIDAZOLE 500 MG/ISO 100ML 500 MG/100 ML BAG 100 MG IVPB ×3 (05:24→21:42)
[2022-11-13 06:16] LABS: Hematocrit 33.6 % (37.0-47.0); Hemoglobin 10.1 g/dL (12.0-15.0); Mean Corpuscular HGB Conc 30.1 g/dl (32-36); Mean Corpuscular Hemoglobin 30.7 pg (26-34); Mean Corpuscular Volume 102.1 fl (80-100); Mean Platelet Volume 9.9 fl (7.4-10.4); Platelet Count Result 247 k/mm3 (150-375); Red Blood Count 3.29 M/mm3 (4.2-5.4); White Blood Count 8.8 K/mm3 (4.5-10.0)
[2022-11-13 06:35] LABS: Alanine Aminotransferase 23 U/L (6-35); Alkaline Phosphatase 130 U/L (38-126); Anion Gap 3 mmol/L (8-16); Aspartate Amino Transferase 35 U/L (14-36); Blood Urea Nitrogen 4 mg/dL (7-17); Calcium 7.8 mg/dL (8.4-10.2); Carbon Dioxide 23 mmol/L (22-30); Chloride 107 mmol/L (98-107); Estimated CRCL calculation 58 ml/min; Estimated Glomerular Filt Rate > 60; Glucose 94 mg/dL (65-110); Magnesium 2.1 mg/dL (1.6-2.3); Potassium 3.3 mmol/L (3.4-5.0); Sodium 133 mmol/L (137-145)
[2022-11-13 07:44] LABS: Glucose Point of Care 95 mg/dl (65-105)
--- NOTE | 2022-11-13 09:08 | PCOTNOTE ---
Attempted to see patient this am, however patient refused stating, I really don't feel like doing any occupational therapy. Pt reported already completing ADLs prior and declined activity out of bed at this time.
[2022-11-13 11:43] LABS: Glucose Point of Care 103 mg/dl (65-105)
[2022-11-13] MEDS: cefTRIAXone 2 GM/NS 100 ML 2 GM/100 ML BAG IVPB (13:06)
[2022-11-13] MEDS: FUROSEMIDE INJ 40 MG/4 ML VIAL IV PUSH (13:08)
--- NOTE | 2022-11-13 13:34 | PCOTNOTE ---
Patient refused treatment this session due to verbalizing, I'm to weak, I need to stay in bed, to keep ankle swelling down.
--- NOTE | 2022-11-13 15:11 | PM.IMPN ---
Progress Note: A&P Assessment and Plan (1) Abscess, retroperitoneal: Code(s): K68.19 - Other retroperitoneal abscess Status: Acute Assessment and Plan: Admit to IMU Patient started on broad-spectrum antibiotics Zosyn and Flagyl General surgery consult Supportive care Continue to monitor HPI-Narrative: This is a 72-year-old female with past medical history significant for hypothyroidism, GERD, iron deficiency anemia, multinodular goiter, orthostatic lightheadedness, osteoarthritis, osteopenia, post herpetic neuralgia act.? Patient presents to the emergency room due to generalized weakness abdominal pain, abdominal bloating, bilateral lower extremity edema, poor appetite, night sweats, chills generalized malaise.? Patient recently had colonoscopy exam for presumptive colon mass however was negative.? Patient has had worsening of symptoms in the last 2 weeks or so.? Preliminary workup was significant for alk phos 170, bilirubin 1.5 lactic acid 3.4, potassium 2.9.? A CT of abdomen and pelvis was reported as: 11/13/2022 Interval history: patient with complaint of abdominal pain, CT scan of the abdomen showed perforated appendix seen by surgery service recommended percutaneous drain to help drain, patient had drain placed on 11/06 the abscess draining dark yellow fluid, abscess culture is growing Provotella species and streptococcus millieri group, pending sensitivity, patient is being treated with ceftriaxone and Flagyl, repeat CT scan of abdomen showed complete resolution of the abscess, today patient was seen by her surgeon recommended upon discharge switch to oral antibiotic for 2 weeks, and removed the drain, also the scan does show large ascites, on 11/06 and agin on 11/09 patient had paracentesis and 1300 cc hazzy fluids was removed, most likely transudate, patient seen by surgery service started the patient on heart healthy diet, and will start PT OT, clinically patient is stable will continue to monitor. Patient complains of palpitation with exertion this is a chronic for the patient and has seen by her Cardiologis and workup is in progress patient was supposed to follow-up with her civil transportation engineer however ended up in the hospital. Remains clinically stable. on 11/12 patient was nauseated gave Zofran and monitor, also complains her enlarged asicted will gently diurese the patient, gave lasix 40mg IV, again patient continue to c/o of ascites, patient does not have history of decomponsated heart nor there is history to hepatitis, her liver enzymes are within normal limits, however her albumin in low and her INR is elevated, patient wanted to be transferred to [facility] as we do not have napkin machine operator, I spoke with Dr. Mark Verma napkin machine operator and presented the case, he suggested patient has acute decompensated cirrhosis and recommended to diurese the patient with lasix and spironolactone, which is started, also c/o abdominal pain and nausea and unable to eat, I have consulted Dr. Johnathon BENAVIDES for further recommendation and spoke with surgery services to revaluate the patient, will monitor will be discharged to SNF for rehab once clinically stable (2) Abdominal ascites: Code(s): R18.8 - Other ascites Status: Acute Assessment and Plan: Consider paracentesis Peritoneal fluid for analysis (3) Abdominal pain: Code(s): R10.9 - Unspecified abdominal pain Status: Acute Assessment and Plan: Likely secondary to retroperitoneal abscess Supportive care (4) Hypothyroidism (acquired): Code(s): E03.9 - Hypothyroidism, unspecified Status: Acute Assessment and Plan: Continue home meds Follow-up in outpatient setting (5) Hypokalemia: Code(s): E87.6 - Hypokalemia Status: Acute Assessment and Plan: Replace as needed Subjective Date/time seen: 11/13/22 15:11 HPI-Narrative: This is a 72-year-old female with past medical history significant for hypothyroidism, GERD,
[2022-11-13 16:52] LABS: Glucose Point of Care 114 mg/dl (65-105)
[2022-11-13] MEDS: SPIRONOLACTONE 12.5 MG TABLET PO (17:55)
[2022-11-13 19:53] LABS: Glucose Point of Care 115 mg/dl (65-105)
[2022-11-14] VITALS (9 sets, daily range): BP systolic 103–120; BP diastolic 56–65; PULSE 56–109; RESP 12–18; TEMP 36.1–36.3; O2SAT 98–100
[2022-11-14] MEDS: metroNIDAZOLE 500 MG/ISO 100ML 500 MG/100 ML BAG 100 MG IVPB ×3 (05:04→21:02)
[2022-11-14 06:37] LABS: Hematocrit 30.4 % (37.0-47.0); Hemoglobin 9.6 g/dL (12.0-15.0); Mean Corpuscular HGB Conc 31.6 g/dl (32-36); Mean Corpuscular Hemoglobin 29.9 pg (26-34); Mean Corpuscular Volume 94.7 fl (80-100); Platelet Count Result 234 k/mm3 (150-375); Red Blood Count 3.21 M/mm3 (4.2-5.4); Red Cell Distribution Width 17.5 % (11.5-14.5); White Blood Count 8.6 K/mm3 (4.5-10.0)
[2022-11-14 06:43] LABS: Alanine Aminotransferase 22 U/L (6-35); Albumin Level 1.9 g/dL (3.5-5.1); Alkaline Phosphatase 133 U/L (38-126); Anion Gap 2 mmol/L (8-16); Aspartate Amino Transferase 32 U/L (14-36); Bilirubin,Total 0.9 mg/dL (0.2-1.3); Blood Urea Nitrogen 4 mg/dL (7-17); Calcium 7.4 mg/dL (8.4-10.2); Carbon Dioxide 27 mmol/L (22-30); Chloride 105 mmol/L (98-107); Estimated CRCL calculation 58 ml/min; Estimated Glomerular Filt Rate > 60; Glucose 79 mg/dL (65-110); Sodium 134 mmol/L (137-145)
[2022-11-14 07:33] LABS: Glucose Point of Care 85 mg/dl (65-105)
[2022-11-14] MEDS: POTASSIUM CHLORIDE 20 MEQ TABLET 40 MEQ PO (08:11)
[2022-11-14] MEDS: FUROSEMIDE INJ 40 MG/4 ML VIAL IV PUSH (08:12)
[2022-11-14] MEDS: SPIRONOLACTONE 25 MG TABLET PO ×2 (08:12→17:33)
--- NOTE | 2022-11-14 10:30 | PM.PNGS ---
Progress Note: A&P Assessment and Plan (1) Abscess, retroperitoneal: Code(s): K68.19 - Other retroperitoneal abscess Status: Acute Assessment and Plan: Abscess adequately drained on repeat CT from 11/09. No longer having any drainage. Due to her anasarca/edema, she does have serous fluid weeping and draining from the perc drain exit site. There is no redness around the drain site or purulent fluid noted. RLQ perc drain removed today. Discussed with the patient that this will likely take longer to heal due to her edema and weeping. Continue antibiotics (currently on day 9, on IV Rocephin and Flagyl). (2) Epigastric abdominal pain: Code(s): R10.13 - Epigastric pain Status: Acute Assessment and Plan: Complaints of postprandial epigastric abdominal pain and nausea. She does not have a gallbladder. She does also report some dark stools starting last night. I have added IV Protonix BID. GI has been consulted, will await their recommendations. Likely GI related. Since her epigastric pain and nausea are limiting her oral intake, she is not eating adequately. She does have Ensure compact ordered BID, which she is trying to drink, but she overall has poor nutrition. Her albumin today is 1.9. If she is unable to increase oral intake to get adequate nutrition, then alternative nutrition needs to be considered such as TPN or enteral feedings. Spoke with the Hospitalist regarding nutrition and he has also ordered a repeat CT abdomen/pelvis. Plan I have discussed the patient's case and plan of care with Dr. Haddad. Subjective Subjective Date/Time Seen: 11/14/22 10:30 Patient reports: still having pain, voiding w/o difficulty, flatus, diarrhea (2-3 BMs daily, small) and afebrile Interval history: Patient seen this morning. She is reporting epigastric abdominal pain quickly after any food intake. She also has associated nausea but has not had any vomiting. Due to the abdominal pain and nausea, she has not been eating much. She also has a poor appetite. Her abdominal pain resolves within a few hours if not eating. She has had a cholecystectomy in the past. She does still have some mild RLQ abdominal pain near the perc drain exit site, but this has improved significantly since her retroperitoneal abscess has been drained. She continues to have issues with swelling in her bilateral lower legs and abdomen. She had another paracentesis yesterday yielding 1700mL of fluid. No other complaints at this time. Continues to have generalized weakness but is working with physicial therapy. Review of Systems Review of Systems: All systems reviewed & are unremarkable except as noted in HPI and below Exam Const: General: comfortable and no acute distress Orientation/consciousness: patient oriented x3 GI: Inspection: Abdominal wall edema bilateral GI Palp: Yes Soft to palpation, Yes Tenderness to palpation present (GI) (very mild tenderness with deep palpation in RLQ,mostly tender in epigastrum), No Guarding due to palpation present (GI), Yes Ascites present and No Rebound tenderness present Auscultation: normal bowel sounds Other: Percutaneous drain exits RLQ with essentially no output today but serosanguineous drainage in tubing, there is some weeping of serous appearing fluid around the drain exit site, dressing removed and asked to be replaced by nursing. No redness of skin around the drain site. Skin: General skin exam: pallor Neuro: General: no focal motor deficits and No confusion Extrem: General: edema bilateral (2-3+ pitting edema in bilateral lower extremities) Psych: Insight: Good insight present (Psych) Judgement: Good judgement present (Psych) Objective Data Vital Signs Vital Signs: Vital Signs - 24 hr 11/13/22 12:00 11/13/22 14:00 11/13/22 16:00 Temperature 97.7 F Pulse Rate 66 81 81 Respiratory Rate 16 Blood Pressure 122/69 Pulse Oximetry 100 Oxygen Delivery 11/13/22 22:00 11/13/22 20:
[2022-11-14 11:47] LABS: Glucose Point of Care 98 mg/dl (65-105)
[2022-11-14] MEDS: PANTOPRAZOLE SODIUM IV 40 MG VIAL IV PUSH ×2 (11:49→21:02)
[2022-11-14] MEDS: cefTRIAXone 2 GM/NS 100 ML 2 GM/100 ML BAG IVPB (11:50)
--- NOTE | 2022-11-14 12:50 | PCNFU ---
Nutrition Follow-Up Complete: Inadequate oral intake related to loss of appetite as evidence by patient report of 20 lb weight loss, acute illness Goal:Adequate PO intake once diet is advanced Pt current nutrition is Heart healthy. Ensure compact BID Nutrition recommendation: increase compact to TID Last recorded weight is 81.5 kg. Bowel Motility: +BM 11/12 Labs Reviewed: hgb:9.6, HCT:30.4, Alb:1.9, NA:134, K:3.0 Meds Noted: lasix, zofran, protonix Skin: WNL Additional Notes: pt on a heart healthy diet, poor po intake. Ensure compact recently ordered, pt willing to try it. Will increase to TID. Monitoring diet advancement, plan of care, weights, labs, intakes Follow up in 5 days
--- NOTE | 2022-11-14 13:12 | WPDGICN ---
Assessment and Plan Assessment and plan (1) Abdominal ascites: Code(s): R18.8 - Other ascites Status: Acute Assessment and Plan: Patient with ascites. This appears to have developed when patient's appendix ruptured and abscess developed. For the etiology of this remains unclear. It is possible she may have borderline cirrhosis that is decompensated with infection. At the present time will leave her on a low-salt diet continue diuresis. Monitor daily weights. Continue supportive care. concern for cirrhosis exists because of low albumin and elevated INR. Low albumin may be related to recent infection and poor overall condition. She appeared to be nutritionally depleted when admitted. She was quite ill when she had was admitted with abscess. Patient did have an elevated BNP on presentation suggesting volume overload initially. Congestive heart failure not evident however. Primary care service has consulted [facility] hepatology service and anticipate that she will follow-up with their after discharge. (2) Abscess, retroperitoneal: Code(s): K68.19 - Other retroperitoneal abscess Status: Acute Assessment and Plan: Percutaneous drain has been placed. Broad-spectrum antibiotics in progress. Surgery following. (3) Perforated appendicitis: Code(s): K35.32 - Acute appendicitis with perforation, localized peritonitis, and gangrene, without abscess Status: Acute Assessment and Plan: Surgery following. Percutaneous drain in area of retroperitoneal abscess. (4) Elevated INR: Code(s): R79.1 - Abnormal coagulation profile Status: Acute Assessment and Plan: Elevated INR raises a question of liver dysfunction. Cannot exclude liver decompensation after rupture of her appendix. Continue monitor conservatively at this point. LFTs currently are normal. No certain cirrhosis by CT scan imaging. (5) History of Gelacio-en-Y gastric bypass: Onset Date: ~2005 Code(s): Z98.84 - Bariatric surgery status Status: Acute Assessment and Plan: This may contribute to patient's fullness and inability eat. She does have ongoing nausea after her recent procedures. (6) Personal history of colonic polyps: Code(s): Z86.010 - Personal history of colonic polyps Status: Acute GI Consult Note Consult date/time: 11/14/22 13:12 Reason for consult: Ascites HPI: Gunjan Coyne is a 72 year old female I am asked to see at the request of the hospitalist service because of ascites. Patient previously seen by GI service in [place] because of a large duodenal polyp. There was concern this may require Whipple procedure but ultimately was resected by Dr. Wiggins at [facility]. she also has a previous gastric bypass surgery. Imaging studies were performed recently raising the question of a colon lesion. Recent GI endoscopy within the last month were performed by Dr. Gonzalez and revealed a benign lipoma of the colon nonspecific mid: Colitis. EGD revealed mild nonerosive esophagitis. Patient apparently did well but admitted to the hospital on 11/05/2021 because of generalized weakness. She apparently had some right lower quadrant abdominal pain. She has been recovering from a left knee surgery. Patient underwent a CT scan which revealed a large abscess was felt to have a perforated appendicitis. This was drained percutaneously with resolution of abscess by follow-up studies. CT scan imaging reveal a moderate amount of ascites. She apparently was found to have a fatty liver by ct scan imaging. Patient has been found to have a moderate amount of ascites by several follow-up imaging studies. Several follow-up paracenteses have been performed. No obvious infection evident. Patient now complains of no appetite because of abdominal pain shortly after eating. She apparently has had some nausea but no vomiting. Her abdominal pain is quite vague and poorly locali
[2022-11-14 16:46] LABS: Glucose Point of Care 106 mg/dl (65-105)
[2022-11-14 17:18] LABS: Amylase Peritoneal Fluid <10 U/L
--- NOTE | 2022-11-14 17:46 | PM.IMPN ---
Progress Note: A&P Assessment and Plan (1) Abscess, retroperitoneal: Code(s): K68.19 - Other retroperitoneal abscess Status: Acute Assessment and Plan: Admit to IMU Patient started on broad-spectrum antibiotics Zosyn and Flagyl General surgery consult Supportive care Continue to monitor HPI-Narrative: This is a 72-year-old female with past medical history significant for hypothyroidism, GERD, iron deficiency anemia, multinodular goiter, orthostatic lightheadedness, osteoarthritis, osteopenia, post herpetic neuralgia act.? Patient presents to the emergency room due to generalized weakness abdominal pain, abdominal bloating, bilateral lower extremity edema, poor appetite, night sweats, chills generalized malaise.? Patient recently had colonoscopy exam for presumptive colon mass however was negative.? Patient has had worsening of symptoms in the last 2 weeks or so.? Preliminary workup was significant for alk phos 170, bilirubin 1.5 lactic acid 3.4, potassium 2.9.? A CT of abdomen and pelvis was reported as: 11/13/2022 Interval history: patient with complaint of abdominal pain, CT scan of the abdomen showed perforated appendix seen by surgery service recommended percutaneous drain to help drain, patient had drain placed on 11/06 the abscess draining dark yellow fluid, abscess culture is growing Provotella species and streptococcus millieri group, pending sensitivity, patient is being treated with ceftriaxone and Flagyl, repeat CT scan of abdomen showed complete resolution of the abscess, today patient was seen by her surgeon recommended upon discharge switch to oral antibiotic for 2 weeks, and removed the drain, also the scan does show large ascites, on 11/06 and agin on 11/09 patient had paracentesis and 1300 cc hazzy fluids was removed, most likely transudate, patient seen by surgery service started the patient on heart healthy diet, and will start PT OT, clinically patient is stable will continue to monitor. 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 Remains clinically stable. on 11/12 patient was nauseated gave Zofran and monitor, also complains her enlarged asicte will gently diurese the patient, gave lasix 40mg IV, again patient continue to c/o of ascites, patient does not have history of decomponsated hear, nor there is history to hepatitis, her liver enzymes are within normal limits, however her albumin in low and her INR is elevated, on 11/13 patient wanted to be transferred to [facility] as we do not have chart snatcher, I spoke with Dr. Mark Verma chart snatcher at [facility] and presented the case, he suggested patient has acute decompensated cirrhosis and recommended to diurese the patient with lasix and spironolactone, which is started, also c/o abdominal pain and nausea and unable to eat, I have consulted Dr. Diego GI for further recommendation and spoke with surgery services to revaluate the patient,today Patient was seen by Dr. Diego suspect patient may have underline liver cirrhosis that is decompensated with perforated appendix and abscess, also patient had Ct scan of abdomen today, showed ?The lung bases are clear. The heart size is normal. There is a small left pleural effusion. There is a small to moderate volume of ascites. The liver is diffusely low in attenuation when compared with the spleen, consistent with hepatic steatosis. The gallbladder is surgically absent. The spleen, pancreas, and adrenal glands are normal. The kidneys are unremarkable. No pathologically enlarged abdominal or pelvic lymph nodes are identified. No free intraperitoneal gas or evidence of bowel obstruction. Mild diffuse bowel wall thickening likely relates to ascites. There is diffuse anasarca. Liquid stool is seen in the colon to the level of the rectum. The right lower quadrant
[2022-11-14 19:29] LABS: Basophils Absolute Auto 0.1 K/mm3 (0.0-0.1); Basophils Percent Auto 0.6 % (0.2-1.2); Eosinophils Percent Auto 0.4 % (0-4.4); Hematocrit 31.6 % (37.0-47.0); Immature Granulocyte Absolute 0.04 K/mm3 (0.00-0.031); Immature Granulocyte Percent A 0.4 % (0-0.5); Lymphocytes Absolute Auto 1.07 K/mm3 (0.9-3.2); Lymphocytes Percent Auto 11.3 % (18.3-44.2); Mean Corpuscular HGB Conc 31.6 g/dl (32-36); Mean Corpuscular Hemoglobin 30.9 pg (26-34); Mean Corpuscular Volume 97.5 fl (80-100); Monocytes Absolute Auto 0.4 K/mm3 (0.1-0.6); Monocytes Percent Auto 3.9 % (2.6-8.5); Neutrophils Absolute Auto 7.9 K/mm3 (1.3-6.7); Neutrophils Percent Auto 83.4 % (45.5-73.1); Platelet Count Result 264 k/mm3 (150-375); Red Blood Count 3.24 M/mm3 (4.2-5.4); Red Cell Distribution Width 17.7 % (11.5-14.5); White Blood Count 9.5 K/mm3 (4.5-10.0)
[2022-11-14 19:41] LABS: Alanine Aminotransferase 23 U/L (6-35); Alkaline Phosphatase 126 U/L (38-126); Anion Gap 4 mmol/L (8-16); Aspartate Amino Transferase 40 U/L (14-36); Bilirubin,Total 0.8 mg/dL (0.2-1.3); Blood Urea Nitrogen 4 mg/dL (7-17); Calcium 7.5 mg/dL (8.4-10.2); Carbon Dioxide 25 mmol/L (22-30); Chloride 105 mmol/L (98-107); Estimated CRCL calculation 52 ml/min; Estimated Glomerular Filt Rate > 60; Glucose 153 mg/dL (65-110); Sodium 134 mmol/L (137-145)
[2022-11-14 20:28] LABS: Transferrin < 80 mg/dL (206-381)
[2022-11-14 21:26] LABS: Glucose Point of Care 144 mg/dl (65-105)
[2022-11-14] MEDS: traMADol HCL (*CRX) 50 MG TABLET PO (22:01)
[2022-11-15] VITALS (9 sets, daily range): BP systolic 107–117; BP diastolic 58–62; PULSE 56–74; RESP 13–16; TEMP 35.9–36.5; O2SAT 98–100
--- NOTE | 2022-11-15 | ECHO_ITS ---
Patient Info Name: Gunjan Coyne Age: 72 years : 1950 Gender: Female Ht: 63 in Wt: 178 lbs BSA: 1.92 m2 HR: 58 bpm BP: 117 / 62 mmHg Heart Rhythm: Sinus Rhythm Technical Quality: Fair Exam Date: 11/15/2022 2:41 PM Exam Location: [facility] Card Pulmonary Patient Status: Inpatient Admit Date: 11/06/2022 Staff Ordering Physician: Moi Seay MD Chocolatier: Angela Arcos RDCS Attending Provider: Geri Bergeron MD Referring Physician: Dawood RAMAN; Exam Type: CA echo doppler color flow Study Info Indications - PALPITATIONS, ELEVATED BNP Complete two-dimensional, color flow and Doppler transthoracic echocardiogram is performed. Summary 1. Complete two-dimensional, color flow and Doppler transthoracic echocardiogram is performed. 2. Left ventricular chamber dimension is normal. 3. Left ventricular systolic function is normal, estimated at 65-70%. 4. The left ventricular diastolic function is grade I diastolic dysfunction. 5. E/e' 7 is not elevated. 6. There is moderate aortic valve sclerosis. 7. The mitral valve has mildly calcified leaflets and moderately calcified annulus. 8. No pulmonary hypertension, estimated pulmonary arterial systolic pressure is 28 mmHg. Left Ventricle E/e' 7 is not elevated. Left ventricular chamber dimension is normal. Left ventricular systolic function is normal, estimated at 65-70%. The left ventricular diastolic function is grade I diastolic dysfunction. Right Ventricle Right ventricular systolic function is normal and with normal TAPSE 1.7 cm. Right ventricular chamber dimension is normal. Left Atria Left atrial chamber dimension is normal. Right Atria Right atrial chamber dimension is normal. Aortic Valve The aortic valve is trileaflet. There is moderate aortic valve sclerosis. There is no aortic valve stenosis. There is no aortic valve regurgitation. Pulmonic Valve There is no pulmonic regurgitation. Mitral Valve The mitral valve has mildly calcified leaflets and moderately calcified annulus. There is no mitral valve stenosis. There is no mitral valve regurgitation. Tricuspid Valve There is no tricuspid valve regurgitation. No pulmonary hypertension, estimated pulmonary arterial systolic pressure is 28 mmHg. Pericardium/Pleural There is no pericardial effusion. Inferior Vena Cava Normal inferior vena cava with >50% collapse upon inspiration consistent with normal right atrial pressure, 5 mmHg. Aorta The aortic root size at the sinus of Valsalva is normal. Left Ventricular Outflow Tract Name Value Normal LVOT 2D LVOT Diameter 1.9 cm LVOT Doppler LVOT Peak Gradient 6 mmHg LVOT Mean Gradient 3 mmHg LVOT VTI 27 cm LVOT VTI/AV VTI Ratio 0.8 LVOT Stroke Volume 72 ml LVOT CO 4.4 l/min LVOT CI 2.3 l/min/m2 Pulmonic Valve
[2022-11-15 01:16] LABS: Glucose Point of Care 162 mg/dl (65-105)
[2022-11-15] MEDS: metroNIDAZOLE 500 MG/ISO 100ML 500 MG/100 ML BAG 100 MG IVPB ×3 (05:24→21:28)
[2022-11-15 06:00] LABS: Glucose Point of Care 150 mg/dl (65-105)
[2022-11-15 06:38] LABS: Hematocrit 23.6 % (37.0-47.0); Hemoglobin 7.3 g/dL (12.0-15.0); Mean Corpuscular HGB Conc 30.9 g/dl (32-36); Mean Corpuscular Hemoglobin 29.8 pg (26-34); Mean Corpuscular Volume 96.3 fl (80-100); Mean Platelet Volume 9.8 fl (7.4-10.4); Platelet Count Result 166 k/mm3 (150-375); Red Blood Count 2.45 M/mm3 (4.2-5.4); Red Cell Distribution Width 17.7 % (11.5-14.5); White Blood Count 6.3 K/mm3 (4.5-10.0)
[2022-11-15 07:16] LABS: Alanine Aminotransferase 17 U/L (6-35); Albumin Level 1.4 g/dL (3.5-5.1); Alkaline Phosphatase 75 U/L (38-126); Anion Gap 10 mmol/L (8-16); Aspartate Amino Transferase 21 U/L (14-36); Bilirubin,Total 0.6 mg/dL (0.2-1.3); Blood Urea Nitrogen 3 mg/dL (7-17); Calcium 5.1 mg/dL (8.4-10.2); Carbon Dioxide 14 mmol/L (22-30); Chloride 107 mmol/L (98-107); Estimated CRCL calculation 88 ml/min; Estimated Glomerular Filt Rate > 60; Glucose 107 mg/dL (65-110); Magnesium 1.4 mg/dL (1.6-2.3); Phosphorus 5.6 mg/dL (2.5-4.5); Potassium 2.2 mmol/L (3.4-5.0); Sodium 131 mmol/L (137-145); Triglycerides 64 mg/dL (<150)
[2022-11-15] MEDS: POTASSIUM CHLORIDE INJ 40 MEQ in SODIUM CHLORIDE 0.9% IV 500 ML 130 MEQ IVPB ×2 (08:10→14:19)
[2022-11-15] MEDS: PANTOPRAZOLE SODIUM IV 40 MG VIAL IV PUSH ×2 (08:43→20:27)
[2022-11-15] MEDS: SPIRONOLACTONE 25 MG TABLET PO ×2 (08:43→17:48)
[2022-11-15] MEDS: POTASSIUM CHLORIDE 10 MEQ TABLET 40 MEQ PO (10:10)
[2022-11-15] MEDS: ONDANSETRON INJ 4 MG/2 ML VIAL IV PUSH (10:11)
[2022-11-15] MEDS: LIDOCAINE HCL 1% PF INJ 5 ML VIAL INFILTRATE (10:35)
--- NOTE | 2022-11-15 11:22 | PCPTNOTE ---
The patient treatment was not able to be completed at this time due to patient sterile procedure for line placement at bedside. Will plan to continue treatment per plan of care.
--- NOTE | 2022-11-15 11:39 | PCDIET ---
Nutrition consult for TPN. Patient getting PICC placed today. Plans to start Clinimix E 01/08 at 40 ml/hr with 250 ml of 20% Lipid Emulsion. TPN will provide patient with an additional 1182 kcals/48 gms protein. Meeting 67% caloric needs and 77% protein needs. Patient remains on a oral diet. Today for breakfast-eggs,hash browns and 2 OJ. Patient is also receiving Ensure compact TID providing an additional 220 kcals and 9 gms protein. Will continue to [facility] every Sunday and Sunday.
[2022-11-15] MEDS: cefTRIAXone 2 GM/NS 100 ML 2 GM/100 ML BAG IVPB (12:07)
[2022-11-15 12:09] LABS: Glucose Point of Care 182 mg/dl (65-105)
--- NOTE | 2022-11-15 12:21 | PM.IMPN ---
Progress Note: A&P Assessment and Plan (1) Abscess, retroperitoneal: Code(s): K68.19 - Other retroperitoneal abscess Status: Acute Assessment and Plan: Drain has been removed. No residual as abscess noted on CT scan (2) Abdominal ascites: Code(s): R18.8 - Other ascites Status: Acute Assessment and Plan: Consider paracentesis Peritoneal fluid for analysis Abdomen is not distended today. Monitor. (3) Abdominal pain: Code(s): R10.9 - Unspecified abdominal pain Status: Acute (4) Hypothyroidism (acquired): Code(s): E03.9 - Hypothyroidism, unspecified Status: Acute Assessment and Plan: Continue home meds Follow-up in outpatient setting (5) Hypokalemia: Code(s): E87.6 - Hypokalemia Status: Acute Assessment and Plan: Replace as needed Replace magnesium as well (6) PVC (premature ventricular contraction): Code(s): I49.3 - Ventricular premature depolarization Status: Acute Assessment and Plan: Will get echocardiogram Subjective Date/time seen: 11/15/22 12:21 No complaints Exam Narrative: Patient is comfortable, NAD HEENT: eyes are clear and none icteric LUNGS: normal respiratory effort ABD: not distended Lower extremities: no edema SKIN: nonjaundiced Neuro: grossly intact. Objective Data Vital Signs Vital Signs: Vital Signs - 24 hr 11/14/22 14:00 11/14/22 16:00 11/14/22 20:00 Temperature 96.9 F L Pulse Rate 80 72 Respiratory Rate 12 Blood Pressure 115/65 Pulse Oximetry 100 Oxygen Delivery Room Air 11/14/22 22:00 11/14/22 20:00 11/15/22 00:00 Temperature 97.3 F L Pulse Rate 79 109 H 62 Respiratory Rate 18 Blood Pressure 103/64 Pulse Oximetry 98 Oxygen Delivery 11/15/22 04:00 11/15/22 06:00 11/15/22 08:40 Temperature 96.6 F L Pulse Rate 56 L 58 L Respiratory Rate 16 Blood Pressure 117/62 Pulse Oximetry 100 Oxygen Delivery Room Air Intake/Output Intake/Output: Intake & Output 11/12/22 11/13/22 11/14/22 11/15/22 23:59 23:59 23:59 23:59 Intake Total 1208 1470 450 615 Output Total 1700 40 Balance 1208 -230 410 615 Meds/Results Medications: Active Medications Generic Name Dose Route Start Last Admin Trade Name Freq PRN Reason Stop Dose Admin Al Hydrox/Mg Hydrox/Simethicone 30 ml 11/15/22 10:18 Mag Hydrox/Al Hydrox/Simeth 30 Ml Udc PO Q6H PRN Indigestion Dextrose 12.5 gm 11/07/22 06:23 Dextrose 50% 25 Gm/50 Ml Syringe IV PUSH PRN PRN Hypoglycemia Protocol Furosemide 40 mg 11/14/22 09:00 11/14/22 08:12 Furosemide Inj 40 Mg/4 Ml Vial IV PUSH 40 mg DAILY CHAPO Administration Glucagon 1 mg 11/07/22 06:23 Glucagon For Inj 1 Mg Vial IM PRN PRN Hypoglycemia Protocol Glucose 15 gm 11/07/22 06:23 Glucose Oral Gel 15 Gm Of Glucse In 37.5 Gm Tube PO PRN PRN Hypoglycemia Protocol Metronidazole 500 mg in 100 mls @ 100 mls/hr 11/06/22 06:00 11/15/22 05:24 Flagyl 500 Mg/Iso Soln 100 Ml IVPB 100 mls/hr Q8H CHAPO Administration Dextrose 1,000 mls @ 100 mls/hr 11/07/22 06:23 Dextrose 5% 1,000 Ml IVPB PRN PRN Hypoglycemia Protocol Ceftriaxone Sodium 2 gm in 100 mls @ 200 mls/hr 11/08/22 13:00 11/15/22 12:07 Rocephin 2 Gm/Ns 100 Ml IVPB 200 mls/hr DAILY@1200 CHAPO Administration Dextrose 1,000 mls @ 50 mls/hr 11/14/22 17:42 Dextrose 10% IV CONT .Q20H PRN if PN is interrupted Potassium Chloride 40 meq/ 520 mls @ 130 mls/hr 11/15/22 11:30 Sodium Chloride IVPB 11/15/22 15:29 ONCE ONE Amino Acids/Electrolytes/Dextrose 2,000 mls @ 83.333 mls/hr 11/15/22 14:00 Clinimix E 5%/15% Solution IV CONT .Q24H CHAPO Protocol Fat Emulsion Intravenous 250 mls @ 20.833 mls/hr 11/15/22 14:00 Lipids 20% IVPB DAILY CHAPO Magnesium Sulfate 2 gm in 50 mls @ 50 mls/hr 11/15/22 12
[2022-11-15 12:26] LABS: Glucose Peritoneal Fluid 147 mg/dL; LDH Peritoneal Fluid 16 U/L (<63); Total Protein Peritoneal Fluid <3.0 g/dL
[2022-11-15] MEDS: MAGNESIUM SULF 2 GM/WATER 50ML 2 GM/50 ML BAG IVPB (12:35)
--- NOTE | 2022-11-15 13:01 | WPDGIPROGNO ---
Progress Note: A&P Assessment and Plan (1) Abdominal ascites: Code(s): R18.8 - Other ascites Status: Acute Assessment and Plan: Patient has had several paracenteses. With removal of ascitic fluid. Likely related very low albumin. The etiology of this could be secondary to malnutrition. there has been some concern over possible occult liver disease. Imaging reveals only fatty liver. Ascites seems to have developed at time of presentation with abscess. Continue supportive care. Plan to continue diuresis of ascites at present. Continue monitor electrolytes. Low-salt diet. I suspect this may resolve after infection has abated. (2) Fatty liver: Code(s): K76.0 - Fatty (change of) liver, not elsewhere classified Status: Acute Assessment and Plan: Fatty liver identified on imaging. No obvious cirrhosis but this cannot be definitively excluded present. Concern over cirrhosis exists because of elevated INR and low albumin level. Will continue to monitor. (3) Perforated appendicitis: Code(s): K35.32 - Acute appendicitis with perforation, localized peritonitis, and gangrene, without abscess Status: Acute Assessment and Plan: Appendectomy to be planned electively place surgery after infection is cleared. (4) Abscess, retroperitoneal: Code(s): K68.19 - Other retroperitoneal abscess Status: Acute Assessment and Plan: Surgery following. Percutaneous drainage of abscess appears to have been successful. External drain removed yesterday. Patient will follow up with surgery for ultimate appendectomy at some point. (5) Anemia: Code(s): D64.9 - Anemia, unspecified Status: Acute Assessment and Plan: Abrupt decline in hemoglobin today. No obvious signs of GI blood loss. Uncertain if this or is related to recent drain for his abscess. Plan to continue to monitor hemoglobin closely. Stool Hemoccult will be obtained. Patient may be anemic secondary previous gastric bypass. (6) History of Gelacio-en-Y gastric bypass: Onset Date: ~2005 Code(s): Z98.84 - Bariatric surgery status Status: Acute Assessment and Plan: This may contribute to iron malabsorption and subsequent anemia. (7) Personal history of colonic polyps: Code(s): Z86.010 - Personal history of colonic polyps Status: Acute Subjective Date/time seen: 11/15/22 13:01 Interval history: Patient alert. Appears more comfortable today. Willing to try regular diet. Denies significant diarrhea nor nausea at present. Review of Systems Review of Systems: Review of systems noncontributory. Exam Narrative: Physical exam reveals patient be alert afebrile and anicteric. Lungs are clear. Heart without murmur. Abdomen obese. Bowel sounds are present soft nontender. External abscess drain was removed yesterday. Ext committee's with no significant edema. Objective Data Vital Signs Vital Signs: Vital Signs - 24 hr 11/14/22 14:00 11/14/22 16:00 11/14/22 20:00 Temperature 96.9 F L Pulse Rate 80 72 Respiratory Rate 12 Blood Pressure 115/65 Pulse Oximetry 100 Oxygen Delivery Room Air 11/14/22 22:00 11/14/22 20:00 11/15/22 00:00 Temperature 97.3 F L Pulse Rate 79 109 H 62 Respiratory Rate 18 Blood Pressure 103/64 Pulse Oximetry 98 Oxygen Delivery 11/15/22 04:00 11/15/22 06:00 11/15/22 08:40 Temperature 96.6 F L Pulse Rate 56 L 58 L Respiratory Rate 16 Blood Pressure 117/62 Pulse Oximetry 100 Oxygen Delivery Room Air Intake/Output Intake/Output: Intake & Output 11/12/22 11/13/22 11/14/22 11/15/22 23:59 23:59 23:59 23:59 Intake Total 1208 1470 450 615 Output Total 1700 40 Balance 1208 -230 410 615 Meds/Results Medications: Active Medications Generic Name Dose Route Start Last Admin Trade Name Freq PRN Reason Stop Dose Admin Al Hydrox/Mg Hydrox/Simethicone
--- NOTE | 2022-11-15 13:22 | PM.PNGS ---
Progress Note: A&P Assessment and Plan (1) Abscess, retroperitoneal: Code(s): K68.19 - Other retroperitoneal abscess Status: Acute Assessment and Plan: Abscess adequately drained following percutaneous drain, which was removed yesterday. Would recommend to continue IV antibiotics while inpatient, but when discharged she could be transitioned to oral antibiotics. She needs to complete a course of 2 weeks of antibiotics total (she is on day 10 of IV abx). Okay to transition to whichever oral antibiotics is recommended by ID pharmacist. I discussed with the patient today again that we would recommend scheduling an interval appendectomy by Dr. Haddad in 6 weeks and could schedule this in follow-up after discharge. If she sees Hepatology at [place], then she could also choose to have her surgery done at [place] as well. We will sign off at this point and monitor the patient peripherally. Plan to follow-up 2 weeks after discharge to schedule the interval appendectomy if she would like it done at [place]. Please call with any surgical questions or concerns. Plan I have discussed the patient's case and plan of care with Dr. Haddad. Subjective Subjective Date/Time Seen: 11/15/22 13:22 Patient reports: no new complaints, feels better, pain is less and nausea (improved) Interval history: Patient overall feeling better today. Was able to eat about 2/3 of her eggs this morning and some of her chicken noodle soup for lunch. She did not have any supplements today. She still had some epigastric abdominal pain after eating breakfast, but reportedly much more mild and shorter duration. She is not having any nausea at this time, and states this has improved. Still having about 2-3 loose stools daily. She feels more bloated today. No RLQ abdominal pain. They have only had to change the dressing once since I removed her RLQ perc drain yesterday. No other complaints at this time. She was started on Clinimix for nutrition and now has a PICC line. Exam Const: General: comfortable and no acute distress Orientation/consciousness: patient oriented x3 GI: Inspection: Abdominal wall edema bilateral and non-distended GI Palp: Yes Soft to palpation, No Tenderness to palpation present (GI) and No Guarding due to palpation present (GI) Auscultation: normal bowel sounds Other: RLQ gauze dressing from previous perc drain site is dry and intact Skin: General skin exam: pallor Extrem: General: edema bilateral (2-3+ pitting edema in bilateral lower extremities) Objective Data Vital Signs Vital Signs: Vital Signs - 24 hr 11/14/22 14:00 11/14/22 16:00 11/14/22 20:00 Temperature 96.9 F L Pulse Rate 80 72 Respiratory Rate 12 Blood Pressure 115/65 Pulse Oximetry 100 Oxygen Delivery Room Air 11/14/22 22:00 11/14/22 20:00 11/15/22 00:00 Temperature 97.3 F L Pulse Rate 79 109 H 62 Respiratory Rate 18 Blood Pressure 103/64 Pulse Oximetry 98 Oxygen Delivery 11/15/22 04:00 11/15/22 06:00 11/15/22 08:40 Temperature 96.6 F L Pulse Rate 56 L 58 L Respiratory Rate 16 Blood Pressure 117/62 Pulse Oximetry 100 Oxygen Delivery Room Air Intake/Output Intake/Output: Intake & Output 11/12/22 11/13/22 11/14/22 11/15/22 23:59 23:59 23:59 23:59 Intake Total 1208 1470 450 735 Output Total 1700 40 Balance 1208 -230 410 735 Meds/Results Medications: Active Medications Generic Name Dose Route Start Last Admin Trade Name Freq PRN Reason Stop Dose Admin Al Hydrox/Mg Hydrox/Simethicone 30 ml 11/15/22 10:18 Mag Hydrox/Al Hydrox/Simeth 30 Ml Udc PO Q6H PRN Indigestion Dextrose 12.5 gm 11/07/22 06:23 Dextrose 50% 25 Gm/50 Ml Syringe IV PUSH PRN PRN Hypoglycemia Protocol Furosemide 40 mg 11/14/22 09:00 11/14/22 08:12 Furosemide Inj 40 Mg/4 Ml Vial IV PUSH 40 mg DAILY CHAPO Administration Glucagon 1 mg 11/07/22 06:23 Glucagon For Inj 1 Mg Vial IM
[2022-11-15] MEDS: CENTRAL LINE FLUSH 10 ML IV PUSH ×2 (14:00→21:20)
[2022-11-15] MEDS: AMINO ACIDS 5%/D15W/E-LYTES/CA 2,000 ML with MULTIVITAMINS-12 INJ VIAL 1 2.5 ML, MULTIV... 83.54 ML IV CONT (14:02)
[2022-11-15] MEDS: FAT EMULSIONS IV 20% 250 ML 20.83 ML IVPB (14:03)
--- NOTE | 2022-11-15 15:04 | PCPTNOTE ---
Attempted to see patient for PT, however patient was getting an ultrasound done.
--- NOTE | 2022-11-15 15:21 | PCPTNOTE ---
Patient refused treatment this session. Patient wanted to rest.
[2022-11-15 17:01] LABS: Glucose Point of Care 185 mg/dl (65-105)
[2022-11-15] MEDS: FUROSEMIDE INJ 40 MG/4 ML VIAL IV PUSH (17:47)
[2022-11-15] MEDS: traMADol HCL (*CRX) 50 MG TABLET PO (20:26)
[2022-11-15] MEDS: LOPERAMIDE HCL 2 MG CAPSULE PO (20:26)
[2022-11-15 22:56] LABS: Anion Gap 1 mmol/L (8-16); Blood Urea Nitrogen 7 mg/dL (7-17); Calcium 7.1 mg/dL (8.4-10.2); Carbon Dioxide 26 mmol/L (22-30); Chloride 105 mmol/L (98-107); Estimated CRCL calculation 75 ml/min; Estimated Glomerular Filt Rate > 60; Glucose 204 mg/dL (65-110); Potassium 4.9 mmol/L (3.4-5.0); Sodium 132 mmol/L (137-145)
[2022-11-15 23:24] LABS: Glucose Point of Care 206 mg/dl (65-105)
[2022-11-15] MEDS: INSULIN ASPART (*BKC) 100 UNITS/ML SUB-Q (23:43)
[2022-11-16] VITALS (9 sets, daily range): BP systolic 104–131; BP diastolic 57–79; PULSE 58–97; RESP 14–18; TEMP 36.2–36.4; O2SAT 99–100
[2022-11-16 03:45] LABS: Basophils Absolute Auto 0.1 K/mm3 (0.0-0.1); Basophils Percent Auto 0.7 % (0.2-1.2); Eosinophils Absolute Auto 0.1 K/mm3 (0-0.3); Eosinophils Percent Auto 0.8 % (0-4.4); Hematocrit 28.8 % (37.0-47.0); Hemoglobin 9.1 g/dL (12.0-15.0); Immature Granulocyte Absolute 0.05 K/mm3 (0.00-0.031); Immature Granulocyte Percent A 0.6 % (0-0.5); Lymphocytes Absolute Auto 1.08 K/mm3 (0.9-3.2); Lymphocytes Percent Auto 12.9 % (18.3-44.2); Mean Corpuscular HGB Conc 31.6 g/dl (32-36); Mean Corpuscular Hemoglobin 31.2 pg (26-34); Mean Corpuscular Volume 98.6 fl (80-100); Mean Platelet Volume 10.2 fl (7.4-10.4); Monocytes Absolute Auto 0.4 K/mm3 (0.1-0.6); Monocytes Percent Auto 4.5 % (2.6-8.5); Neutrophils Absolute Auto 6.7 K/mm3 (1.3-6.7); Neutrophils Percent Auto 80.5 % (45.5-73.1); Platelet Count Result 177 k/mm3 (150-375); Red Blood Count 2.92 M/mm3 (4.2-5.4); Red Cell Distribution Width 17.5 % (11.5-14.5); White Blood Count 8.4 K/mm3 (4.5-10.0)
[2022-11-16 04:02] LABS: Alanine Aminotransferase 20 U/L (6-35); Albumin Level 1.9 g/dL (3.5-5.1); Alkaline Phosphatase 88 U/L (38-126); Anion Gap -1 mmol/L (8-16); Aspartate Amino Transferase 27 U/L (14-36); Bilirubin,Total 0.7 mg/dL (0.2-1.3); Blood Urea Nitrogen 8 mg/dL (7-17); Calcium 7.1 mg/dL (8.4-10.2); Carbon Dioxide 28 mmol/L (22-30); Chloride 105 mmol/L (98-107); Estimated CRCL calculation 75 ml/min; Estimated Glomerular Filt Rate > 60; Glucose 145 mg/dL (65-110); Magnesium 2.1 mg/dL (1.6-2.3); Phosphorus 2.5 mg/dL (2.5-4.5); Potassium 4.5 mmol/L (3.4-5.0); Sodium 132 mmol/L (137-145)
[2022-11-16 06:05] LABS: Glucose Point of Care 199 mg/dl (65-105)
[2022-11-16] MEDS: CENTRAL LINE FLUSH 10 ML IV PUSH ×3 (06:38→21:15)
[2022-11-16] MEDS: PANTOPRAZOLE SODIUM IV 40 MG VIAL IV PUSH ×2 (08:02→21:15)
[2022-11-16] MEDS: MAGNESIUM OXIDE 400 MG TABLET PO (08:02)
[2022-11-16] MEDS: FUROSEMIDE INJ 40 MG/4 ML VIAL IV PUSH (08:02)
[2022-11-16] MEDS: SPIRONOLACTONE 25 MG TABLET PO ×2 (08:02→17:14)
--- NOTE | 2022-11-16 08:46 | WPDGIPROGNO ---
Progress Note: A&P Assessment and Plan (1) Abdominal ascites: Code(s): R18.8 - Other ascites Status: Acute Assessment and Plan: Patient with ascites. This has improved after paracentesis. Plan to treat with diuresis. Etiology remains unclear. Fatty liver identified on imaging studies. But no clear evidence for cirrhosis. Concern over cirrhosis because of low albumin and elevated INR. Plan to monitor closely. After she recovers from her recent abscess in perforated appendix. She may benefit from further evaluation such as liver biopsy. This will be deferred at present. (2) Abscess, retroperitoneal: Code(s): K68.19 - Other retroperitoneal abscess Status: Acute Assessment and Plan: Abscess appears resolved. External drain removed. Continued surgical follow-up. Complete course of antibiotics. (3) Perforated appendicitis: Code(s): K35.32 - Acute appendicitis with perforation, localized peritonitis, and gangrene, without abscess Status: Acute Assessment and Plan: Patient with apparent perforated appendicitis. Follow-up with surgery ultimately for a resection of appendix anticipated. (4) Elevated INR: Code(s): R79.1 - Abnormal coagulation profile Status: Acute (5) Anemia: Code(s): D64.9 - Anemia, unspecified Status: Acute Assessment and Plan: Hemoglobin stable today. No signs of ongoing bleeding. Continue to follow conservatively at this point. (6) History of Gelacio-en-Y gastric bypass: Onset Date: ~2005 Code(s): Z98.84 - Bariatric surgery status Status: Acute Subjective Date/time seen: 11/16/22 08:46 Interval history: Patient alert comfortable this morning. Tolerating diet last evening in today. Apparently was started on peripheral nutrition however despite this. Patients denies significant abdominal pain at present. Nausea resolved. Review of Systems Review of Systems: Review of systems noncontributory. Exam Narrative: Physical exam reveals patient to be alert. Vital signs stable. She is afebrile and anicteric. Lungs are clear. Heart without murmur. Abdomen bowel sounds present soft nontender with no organomegaly. Abdomen is obese. External drain has been removed. Objective Data Vital Signs Vital Signs: Vital Signs - 24 hr 11/15/22 14:00 11/15/22 12:00 11/15/22 16:00 Temperature 97.7 F Pulse Rate 74 73 65 Respiratory Rate 14 Blood Pressure 107/58 L Pulse Oximetry 98 Oxygen Delivery 11/15/22 22:00 11/15/22 20:00 11/15/22 20:00 Temperature 97.0 F L Pulse Rate 69 71 Respiratory Rate 13 Blood Pressure 112/60 Pulse Oximetry 99 Oxygen Delivery Room Air 11/16/22 00:00 11/16/22 04:00 11/16/22 05:51 Temperature 97.1 F L Pulse Rate 63 58 L 61 Respiratory Rate 14 Blood Pressure 104/57 L Pulse Oximetry 99 Oxygen Delivery Intake/Output Intake/Output: Intake & Output 11/13/22 11/14/22 11/15/22 11/16/22 23:59 23:59 23:59 23:59 Intake Total 6093 566 9894 250 Output Total 1700 40 Balance -520 283 1719 250 Meds/Results Medications: Active Medications Generic Name Dose Route Start Last Admin Trade Name Freq PRN Reason Stop Dose Admin Al Hydrox/Mg Hydrox/Simethicone 30 ml 11/15/22 10:18 Mag Hydrox/Al Hydrox/Simeth 30 Ml Udc PO Q6H PRN Indigestion Dextrose 12.5 gm 11/07/22 06:23 Dextrose 50% 25 Gm/50 Ml Syringe IV PUSH PRN PRN Hypoglycemia Protocol Furosemide 40 mg 11/14/22 09:00 11/16/22 08:02 Furosemide Inj 40 Mg/4 Ml Vial IV PUSH 40 mg DAILY CHAPO Administration Glucagon 1 mg 11/07/22 06:23 Glucagon For Inj 1 Mg Vial IM PRN PRN Hypoglycemia Protocol Glucose 15 gm 11/07/22 06:23 Glucose Oral Gel 15 Gm Of Glucse In 37.5 Gm Tube PO PRN PRN Hypoglycemia Protocol Dextrose 1,000 mls @ 100 mls/hr 11/07/22 06:23 Dextrose 5%
--- NOTE | 2022-11-16 10:19 | PCCARD ---
Talked to Dr. Seay about order for Limited echo and he said it was okay to change order to echo/doppler with colorflow.
--- NOTE | 2022-11-16 10:51 | PM.IMPN ---
Progress Note: A&P Assessment and Plan (1) Abscess, retroperitoneal: Code(s): K68.19 - Other retroperitoneal abscess Status: Acute Assessment and Plan: Drain has been removed. No residual as abscess noted on CT scan (2) Abdominal ascites: Code(s): R18.8 - Other ascites Status: Acute Assessment and Plan: Consider paracentesis Peritoneal fluid for analysis Abdomen is not distended today. Monitor. (3) Abdominal pain: Code(s): R10.9 - Unspecified abdominal pain Status: Acute (4) Hypothyroidism (acquired): Code(s): E03.9 - Hypothyroidism, unspecified Status: Acute Assessment and Plan: Continue home meds Follow-up in outpatient setting (5) Hypokalemia: Code(s): E87.6 - Hypokalemia Status: Acute Assessment and Plan: Replace as needed Replace magnesium as well (6) PVC (premature ventricular contraction): Code(s): I49.3 - Ventricular premature depolarization Status: Acute Assessment and Plan: Will get echocardiogram Subjective Date/time seen: 11/16/22 10:51 Feeling okay, tolerating some food. Exam Narrative: Patient is comfortable, NAD HEENT: eyes are clear and none icteric LUNGS: normal respiratory effort ABD: not distended Lower extremities: no edema SKIN: nonjaundiced Neuro: grossly intact. Objective Data Vital Signs Vital Signs: Vital Signs - 24 hr 11/15/22 14:00 11/15/22 12:00 11/15/22 16:00 Temperature 97.7 F Pulse Rate 74 73 65 Respiratory Rate 14 Blood Pressure 107/58 L Pulse Oximetry 98 Oxygen Delivery 11/15/22 22:00 11/15/22 20:00 11/15/22 20:00 Temperature 97.0 F L Pulse Rate 69 71 Respiratory Rate 13 Blood Pressure 112/60 Pulse Oximetry 99 Oxygen Delivery Room Air 11/16/22 00:00 11/16/22 04:00 11/16/22 05:51 Temperature 97.1 F L Pulse Rate 63 58 L 61 Respiratory Rate 14 Blood Pressure 104/57 L Pulse Oximetry 99 Oxygen Delivery 11/16/22 08:00 Temperature Pulse Rate Respiratory Rate Blood Pressure Pulse Oximetry Oxygen Delivery Room Air Intake/Output Intake/Output: Intake & Output 11/13/22 11/14/22 11/15/22 11/16/22 23:59 23:59 23:59 23:59 Intake Total 3114 346 7895 370 Output Total 1700 40 Balance -521 683 8360 370 Meds/Results Medications: Active Medications Generic Name Dose Route Start Last Admin Trade Name Freq PRN Reason Stop Dose Admin Al Hydrox/Mg Hydrox/Simethicone 30 ml 11/15/22 10:18 Mag Hydrox/Al Hydrox/Simeth 30 Ml Udc PO Q6H PRN Indigestion Dextrose 12.5 gm 11/07/22 06:23 Dextrose 50% 25 Gm/50 Ml Syringe IV PUSH PRN PRN Hypoglycemia Protocol Furosemide 40 mg 11/14/22 09:00 11/16/22 08:02 Furosemide Inj 40 Mg/4 Ml Vial IV PUSH 40 mg DAILY CHAPO Administration Glucagon 1 mg 11/07/22 06:23 Glucagon For Inj 1 Mg Vial IM PRN PRN Hypoglycemia Protocol Glucose 15 gm 11/07/22 06:23 Glucose Oral Gel 15 Gm Of Glucse In 37.5 Gm Tube PO PRN PRN Hypoglycemia Protocol Dextrose 1,000 mls @ 100 mls/hr 11/07/22 06:23 Dextrose 5% 1,000 Ml IVPB PRN PRN Hypoglycemia Protocol Ceftriaxone Sodium 2 gm in 100 mls @ 200 mls/hr 11/08/22 13:00 11/15/22 13:07 Rocephin 2 Gm/Ns 100 Ml IVPB Infused DAILY@1200 [facility]O Infusion Dextrose 1,000 mls @ 50 mls/hr 11/14/22 17:42 Dextrose 10% IV CONT .Q20H PRN if PN is interrupted Multivitamins 2.5 ml/ 2,005 mls @ 40 mls/hr 11/15/22 14:00 11/15/22 14:02 Multivitamins 2.5 ml/ Amino IV CONT 83.54 mls/hr Acids/Electrolytes/Dextrose .Q24H [facility]O Administration Protocol Fat Emulsion Intravenous 250 mls @ 20.833 mls/hr 11/16/22 14:00 Lipids 20% IVPB Q24H [facility]O Insulin Aspart 2 - 5 units 11/16/22 00:00 11/16/22 05:11 Insulin Aspart (*Bkc) 100 Units/Ml SUB-Q Not Given Q6HR [facility] Protocol Loperamide HCl
[2022-11-16 11:22] LABS: Albumin Peritoneal Fluid 0.1 g/dL
[2022-11-16 12:04] LABS: Glucose Point of Care 215 mg/dl (65-105)
[2022-11-16] MEDS: INSULIN ASPART (*BKC) 100 UNITS/ML SUB-Q (12:06)
[2022-11-16] MEDS: metroNIDAZOLE 250 MG TABLET 500 MG PO ×2 (13:36→21:15)
[2022-11-16] MEDS: ONDANSETRON INJ 4 MG/2 ML VIAL IV PUSH (13:38)
[2022-11-16 13:59] LABS: IFOB Positive Control Positive; Immunochemical Fecal Occult Bl Negative (N)
[2022-11-16 17:13] LABS: Glucose Point of Care 156 mg/dl (65-105)
[2022-11-16] MEDS: MAG HYDROX/AL HYDROX/SIMETH 30 ML UDC PO (17:14)
[2022-11-16] MEDS: AMOXICILLIN/CLAVULANATE K 875-125 MG TAB 1 TABLET PO (21:15)
[2022-11-16 21:41] LABS: Glucose Point of Care 125 mg/dl (65-105)
[2022-11-17] VITALS: PULSE 67
[2022-11-17 03:43] VITALS: BP 115/69; PULSE 71; RESP 18; TEMP 35.8; O2SAT 100
[2022-11-17 04:00] VITALS: PULSE 61
[2022-11-17] MEDS: metroNIDAZOLE 250 MG TABLET 500 MG PO ×3 (06:03→20:41)
[2022-11-17] MEDS: CENTRAL LINE FLUSH 10 ML IV PUSH ×3 (06:03→22:00)
[2022-11-17 06:21] LABS: Hematocrit 34.4 % (37.0-47.0); Hemoglobin 10.7 g/dL (12.0-15.0); Mean Corpuscular HGB Conc 31.1 g/dl (32-36); Mean Corpuscular Hemoglobin 30.1 pg (26-34); Mean Corpuscular Volume 96.9 fl (80-100); Mean Platelet Volume 10.6 fl (7.4-10.4); Platelet Count Result 224 k/mm3 (150-375); Red Blood Count 3.55 M/mm3 (4.2-5.4); Red Cell Distribution Width 17.3 % (11.5-14.5); White Blood Count 12.2 K/mm3 (4.5-10.0)
[2022-11-17 07:02] LABS: Alanine Aminotransferase 20 U/L (6-35); Albumin Level 2.1 g/dL (3.5-5.1); Alkaline Phosphatase 98 U/L (38-126); Anion Gap 0 mmol/L (8-16); Aspartate Amino Transferase 29 U/L (14-36); Bilirubin,Total 0.9 mg/dL (0.2-1.3); Blood Urea Nitrogen 10 mg/dL (7-17); Calcium 7.6 mg/dL (8.4-10.2); Carbon Dioxide 30 mmol/L (22-30); Chloride 104 mmol/L (98-107); Estimated CRCL calculation 75 ml/min; Estimated Glomerular Filt Rate > 60; Glucose 99 mg/dL (65-110); Phosphorus 2.7 mg/dL (2.5-4.5); Potassium 3.7 mmol/L (3.4-5.0); Sodium 134 mmol/L (137-145)
[2022-11-17 07:57] LABS: Glucose Point of Care 95 mg/dl (65-105)
[2022-11-17 08:00] VITALS: PULSE 66
[2022-11-17] MEDS: MAGNESIUM OXIDE 400 MG TABLET PO (09:13)
[2022-11-17] MEDS: ONDANSETRON INJ 4 MG/2 ML VIAL IV PUSH ×2 (09:13→20:43)
[2022-11-17] MEDS: FUROSEMIDE INJ 40 MG/4 ML VIAL IV PUSH (09:13)
[2022-11-17] MEDS: PANTOPRAZOLE SODIUM IV 40 MG VIAL IV PUSH ×2 (09:13→20:41)
[2022-11-17] MEDS: LOPERAMIDE HCL 2 MG CAPSULE PO ×4 (09:13→20:42)
[2022-11-17] MEDS: AMOXICILLIN/CLAVULANATE K 875-125 MG TAB 1 TABLET PO ×2 (09:13→20:41)
[2022-11-17] MEDS: SPIRONOLACTONE 25 MG TABLET PO ×2 (09:13→16:57)
--- NOTE | 2022-11-17 10:02 | WPDGIPROGNO ---
Progress Note: A&P Assessment and Plan (1) Abdominal ascites: Code(s): R18.8 - Other ascites Status: Acute Assessment and Plan: Ascites appears stable at present clear. Plan to treat patient with diuresis. Etiology of this is unclear but it seemed to be exacerbated by infection and recent abscess. Hopefully as at infection clears the ascites will resorb. Outpatient follow-up is advised. Continue low-salt diet and low-dose diuretics. (2) Abscess, retroperitoneal: Code(s): K68.19 - Other retroperitoneal abscess Status: Acute Assessment and Plan: Patient's abscess appears to have resolved with percutaneous drainage. Surgery following. Patient complete course of antibiotics. (3) Perforated appendicitis: Code(s): K35.32 - Acute appendicitis with perforation, localized peritonitis, and gangrene, without abscess Status: Acute Assessment and Plan: Patient felt to have abscess on the basis of perforated appendix. Surgical follow-up anticipated. (4) History of Gelacio-en-Y gastric bypass: Onset Date: ~2005 Code(s): Z98.84 - Bariatric surgery status Status: Acute Subjective Date/time seen: 11/17/22 10:02 Interval history: Patient is alert comfortable this morning. Tolerating solid food without too much difficulty. Peripheral nutrition via IV has been discontinued. Patient's bowel habits appear normal. Patient has minimal abdominal discomfort at this point. Review of Systems Review of Systems: Review of systems noncontributory. Exam Narrative: Physical exam reveals vital signs to be stable. HEENT exam is unremarkable. Patient anicteric. Lungs are clear. Heart without murmur. Abdomen is obese. Bowel sounds are present soft nontender no obvious organomegaly. External drains have been removed. Objective Data Vital Signs Vital Signs: Vital Signs - 24 hr 11/16/22 15:01 11/16/22 12:00 11/16/22 16:00 Temperature 97.5 F L Pulse Rate 97 82 72 Respiratory Rate 17 Blood Pressure 131/79 Pulse Oximetry 100 Oxygen Delivery 11/16/22 21:01 11/16/22 20:00 11/16/22 20:00 Temperature 97.2 F L Pulse Rate 69 68 Respiratory Rate 18 Blood Pressure 113/65 Pulse Oximetry 99 Oxygen Delivery Room Air 11/17/22 00:00 11/17/22 03:43 11/17/22 04:00 Temperature 96.5 F L Pulse Rate 67 71 61 Respiratory Rate 18 Blood Pressure 115/69 Pulse Oximetry 100 Oxygen Delivery Intake/Output Intake/Output: Intake & Output 11/14/22 11/15/22 11/16/22 11/17/22 23:59 23:59 23:59 23:59 Intake Total 450 3470 4060 260 Output Total 40 Balance 410 3470 4060 260 Meds/Results Medications: Active Medications Generic Name Dose Route Start Last Admin Trade Name Freq PRN Reason Stop Dose Admin Al Hydrox/Mg Hydrox/Simethicone 30 ml 11/15/22 10:18 11/16/22 17:14 Mag Hydrox/Al Hydrox/Simeth 30 Ml Udc PO 30 ml Q6H PRN Administration Indigestion Amoxicillin/Clavulanate Potassium 1 tablet 11/16/22 21:00 11/17/22 09:13 Amoxicillin/Clavulanate K 875-125 Mg Tab PO 1 tablet Q12HR [facility]O Administration Dextrose 12.5 gm 11/07/22 06:23 Dextrose 50% 25 Gm/50 Ml Syringe IV PUSH PRN PRN Hypoglycemia Protocol Furosemide 40 mg 11/14/22 09:00 11/17/22 09:13 Furosemide Inj 40 Mg/4 Ml Vial IV PUSH 40 mg DAILY CHAPO Administration Glucagon 1 mg 11/07/22 06:23 Glucagon For Inj 1 Mg Vial IM PRN PRN Hypoglycemia Protocol Glucose 15 gm 11/07/22 06:23 Glucose Oral Gel 15 Gm Of Glucse In 37.5 Gm Tube PO PRN PRN Hypoglycemia Protocol Dextrose 1,000 mls @ 100 mls/hr 11/07/22 06:23 Dextrose 5% 1,000 Ml IVPB PRN PRN Hypoglycemia Protocol Dextrose 1,000 mls @ 50 mls/hr 11/14/22 17:42 Dextrose 10% IV CONT .Q20H PRN if PN is interrupted Insulin Aspart 2 - 5 units 11/16/22 17:00 11/17/22 08:02 I
--- NOTE | 2022-11-17 11:24 | PCNFU ---
Nutrition Follow-Up Complete: Inadequate oral intake related to loss of appetite as evidence by patient report of 20 lb weight loss, acute illness Goal: Adequate PO intake once diet is advanced - Goal is being met. Pt on heart healthy diet with intakes 60-100% last 24 hours. Pt current nutrition is Heart healthy diet, Ensure Compact TID for additional 220 kcals and 9 g protein each. PPN is discontinued. Intakes are good Nutrition recommendation: Continue with current orders. Agree with orders. Last recorded weight is 81.2 kg. Bowel Motility: +1 BM 11/16/22 Labs Reviewed: Hgb 10.7, Hct 34.4, Alb 2.1, Na 134, Cre 0.6 Meds Noted: Immodium, Zofran Skin: No pressure. Incision to abdomen Additional Notes: PPN was discontinued yesterday. Having bowel movements and appetite is improved. Agree with current orders Monitoring diet advancement, plan of care, weights, labs, intakes Follow up in 5 days
[2022-11-17 11:26] LABS: Triglycerides 115 mg/dL (<150)
[2022-11-17 12:39] LABS: Glucose Point of Care 112 mg/dl (65-105)
--- NOTE | 2022-11-17 12:39 | PM.IMPN ---
Progress Note: A&P Assessment and Plan (1) Abscess, retroperitoneal: Code(s): K68.19 - Other retroperitoneal abscess Status: Acute Assessment and Plan: Drain has been removed. No residual as abscess noted on CT scan (2) Abdominal ascites: Code(s): R18.8 - Other ascites Status: Acute Assessment and Plan: Consider paracentesis Peritoneal fluid for analysis Abdomen is not distended today. Monitor. (3) Abdominal pain: Code(s): R10.9 - Unspecified abdominal pain Status: Acute (4) Hypothyroidism (acquired): Code(s): E03.9 - Hypothyroidism, unspecified Status: Acute Assessment and Plan: Continue home meds Follow-up in outpatient setting (5) Hypokalemia: Code(s): E87.6 - Hypokalemia Status: Acute Assessment and Plan: Replace as needed Replace magnesium as well (6) PVC (premature ventricular contraction): Code(s): I49.3 - Ventricular premature depolarization Status: Acute Assessment and Plan: Will get echocardiogram Subjective Date/time seen: 11/17/22 12:39 No new complaints Exam Narrative: Patient is comfortable, NAD HEENT: eyes are clear and none icteric LUNGS: normal respiratory effort ABD: not distended Lower extremities: no edema SKIN: nonjaundiced Neuro: grossly intact. Objective Data Vital Signs Vital Signs: Vital Signs - 24 hr 11/16/22 15:01 11/16/22 16:00 11/16/22 21:01 Temperature 97.5 F L 97.2 F L Pulse Rate 97 72 69 Respiratory Rate 17 18 Blood Pressure 131/79 113/65 Pulse Oximetry 100 99 Oxygen Delivery 11/16/22 20:00 11/16/22 20:00 11/17/22 00:00 Temperature Pulse Rate 68 67 Respiratory Rate Blood Pressure Pulse Oximetry Oxygen Delivery Room Air 11/17/22 03:43 11/17/22 04:00 Temperature 96.5 F L Pulse Rate 71 61 Respiratory Rate 18 Blood Pressure 115/69 Pulse Oximetry 100 Oxygen Delivery Intake/Output Intake/Output: Intake & Output 11/14/22 11/15/22 11/16/22 11/17/22 23:59 23:59 23:59 23:59 Intake Total 450 3470 4060 380 Output Total 40 Balance 410 3470 4060 380 Meds/Results Medications: Active Medications Generic Name Dose Route Start Last Admin Trade Name Freq PRN Reason Stop Dose Admin Al Hydrox/Mg Hydrox/Simethicone 30 ml 11/15/22 10:18 11/16/22 17:14 Mag Hydrox/Al Hydrox/Simeth 30 Ml Udc PO 30 ml Q6H PRN Administration Indigestion Amoxicillin/Clavulanate Potassium 1 tablet 11/16/22 21:00 11/17/22 09:13 Amoxicillin/Clavulanate K 875-125 Mg Tab PO 1 tablet Q12HR [facility]O Administration Dextrose 12.5 gm 11/07/22 06:23 Dextrose 50% 25 Gm/50 Ml Syringe IV PUSH PRN PRN Hypoglycemia Protocol Furosemide 40 mg 11/14/22 09:00 11/17/22 09:13 Furosemide Inj 40 Mg/4 Ml Vial IV PUSH 40 mg DAILY [facility]O Administration Glucagon 1 mg 11/07/22 06:23 Glucagon For Inj 1 Mg Vial IM PRN PRN Hypoglycemia Protocol Glucose 15 gm 11/07/22 06:23 Glucose Oral Gel 15 Gm Of Glucse In 37.5 Gm Tube PO PRN PRN Hypoglycemia Protocol Dextrose 1,000 mls @ 100 mls/hr 11/07/22 06:23 Dextrose 5% 1,000 Ml IVPB PRN PRN Hypoglycemia Protocol Dextrose 1,000 mls @ 50 mls/hr 11/14/22 17:42 Dextrose 10% IV CONT .Q20H PRN if PN is interrupted Insulin Aspart 2 - 5 units 11/16/22 17:00 11/17/22 08:02 Insulin Aspart (*Bkc) 100 Units/Ml SUB-Q Not Given TIDWM [facility] Protocol Loperamide HCl 2 mg 11/09/22 16:15 11/17/22 09:13 Loperamide Hcl 2 Mg Capsule PO 2 mg PRN PRN Administration Diarrhea Magnesium Oxide 400 mg 11/16/22 09:00 11/17/22 09:13 Magnesium Oxide 400 Mg Tablet PO 400 mg DAILY CH[facility]O Administration Metronidazole 500 mg 11/16/22 14:00 11/17/22 06:03 Metronidazole 250 Mg Tablet PO 500 mg Q8HR [facility] Administration Ondansetron HCl 4 mg 11/05/22 20:23
[2022-11-17 15:00] VITALS: BP 106/63; PULSE 89; RESP 16; TEMP 36.2; O2SAT 100
[2022-11-17] MEDS: ACIDOPHILUS/BULGARICUS CHEWABLE TABLET 1 TABLET PO (16:57)
[2022-11-17 17:38] LABS: Glucose Point of Care 129 mg/dl (65-105)
[2022-11-17] MEDS: traMADol HCL (*CRX) 50 MG TABLET PO (20:42)
[2022-11-17 21:07] LABS: Glucose Point of Care 114 mg/dl (65-105)
[2022-11-17 22:03] VITALS: BP 96/59; PULSE 71; RESP 18; TEMP 36.2; O2SAT 99
[2022-11-18] MEDS: CENTRAL LINE FLUSH 10 ML IV PUSH ×2 (05:31→13:41)
[2022-11-18] MEDS: metroNIDAZOLE 250 MG TABLET 500 MG PO ×2 (05:32→13:40)
[2022-11-18 05:48] VITALS: BP 115/61; PULSE 70; RESP 18; TEMP 36.2; O2SAT 98
[2022-11-18 05:48] LABS: Immature Platelet Fraction Pct 5.7 % (0.9-11.2)
[2022-11-18 05:50] LABS: Hematocrit 28.1 % (37.0-47.0); Hemoglobin 8.9 g/dL (12.0-15.0); Mean Corpuscular HGB Conc 31.7 g/dl (32-36); Mean Corpuscular Hemoglobin 31.9 pg (26-34); Mean Corpuscular Volume 100.7 fl (80-100); Mean Platelet Volume 10.9 fl (7.4-10.4); Platelet Count Result 143 k/mm3 (150-375); Red Blood Count 2.79 M/mm3 (4.2-5.4); Red Cell Distribution Width 17.6 % (11.5-14.5); White Blood Count 6.9 K/mm3 (4.5-10.0)
[2022-11-18 05:54] LABS: Alanine Aminotransferase 20 U/L (6-35); Alkaline Phosphatase 88 U/L (38-126); Anion Gap -3 mmol/L (8-16); Aspartate Amino Transferase 40 U/L (14-36); Bilirubin,Total 0.9 mg/dL (0.2-1.3); Blood Urea Nitrogen 10 mg/dL (7-17); Calcium 7.4 mg/dL (8.4-10.2); Carbon Dioxide 32 mmol/L (22-30); Chloride 105 mmol/L (98-107); Estimated CRCL calculation 88 ml/min; Estimated Glomerular Filt Rate > 60; Glucose 84 mg/dL (65-110); Phosphorus 3.2 mg/dL (2.5-4.5); Potassium 4.8 mmol/L (3.4-5.0); Sodium 134 mmol/L (137-145)
[2022-11-18 08:35] LABS: Glucose Point of Care 90 mg/dl (65-105)
[2022-11-18] MEDS: FUROSEMIDE INJ 40 MG/4 ML VIAL IV PUSH (08:44)
[2022-11-18] MEDS: MAGNESIUM OXIDE 400 MG TABLET PO (08:45)
[2022-11-18] MEDS: LOPERAMIDE HCL 2 MG CAPSULE PO ×3 (08:45→16:09)
[2022-11-18] MEDS: PANTOPRAZOLE SODIUM IV 40 MG VIAL IV PUSH (08:45)
[2022-11-18] MEDS: AMOXICILLIN/CLAVULANATE K 875-125 MG TAB 1 TABLET PO (08:45)
[2022-11-18] MEDS: ACIDOPHILUS/BULGARICUS CHEWABLE TABLET 1 TABLET PO ×3 (08:45→16:09)
[2022-11-18] MEDS: SPIRONOLACTONE 25 MG TABLET PO ×2 (08:45→16:09)
[2022-11-18 11:48] LABS: Glucose Point of Care 138 mg/dl (65-105)
--- NOTE | 2022-11-18 12:38 | PM.DS ---
DS: Admitting Diagnosis Discharge Date November 18, 2022 Admitting Diagnosis Retroperitoneal abscess DS: Discharge Diagnosis Discharge Diagnosis (1) Abscess, retroperitoneal: Code(s): K68.19 - Other retroperitoneal abscess Status: Acute Assessment and Plan: Drain has been removed. No residual as abscess noted on CT scan (2) Abdominal ascites: Code(s): R18.8 - Other ascites Status: Acute Assessment and Plan: Consider paracentesis Peritoneal fluid for analysis Abdomen is not distended today. Monitor. (3) Abdominal pain: Code(s): R10.9 - Unspecified abdominal pain Status: Acute (4) Hypothyroidism (acquired): Code(s): E03.9 - Hypothyroidism, unspecified Status: Acute Assessment and Plan: Continue home meds Follow-up in outpatient setting (5) Hypokalemia: Code(s): E87.6 - Hypokalemia Status: Acute Assessment and Plan: Replace as needed Replace magnesium as well (6) PVC (premature ventricular contraction): Code(s): I49.3 - Ventricular premature depolarization Status: Acute Assessment and Plan: Will get echocardiogram DS: Summary Hospital Course Hospital Course: 9-year-old female admitted for retroperitoneal abscess with drain. Co surgery was consulted and recommended containing oral antibiotics, drain was removed. She will also need appendectomy on follow-up. She will need follow-up with surgery in the next couple weeks. This will be performed in the next 4-6 weeks. Otherwise patient had some electrolyte abnormalities which have been corrected she is also be discharged to [facility] facility. Time Spent with Patient Time attestation: Total time spent providing and/or coordinating discharge services: Exam Narrative: Patient is comfortable, NAD HEENT: eyes are clear and none icteric LUNGS: normal respiratory effort ABD: not distended Lower extremities: no edema SKIN: nonjaundiced Neuro: grossly intact. DS: Data Data Completed and Pending Completed studies during hospitalization: Pending at discharge 11/09/22 16:09 Cytology [PTH] Routine Labs on day of discharge: Labs from last 24 hours 11/18/22 11/18/22 11/18/22 11:46 08:33 05:25 WBC RBC Hgb Hct MCV MCH MCHC RDW Plt Count MPV % Immature Plt Fraction Sodium 134 L Potassium 4.8 Chloride 105 Carbon Dioxide 32 H Anion Gap -3 L BUN 10 Creatinine 0.50 L Estim Creat Clear Calc 88 Estimated GFR > 60 Glucose 84 POC Capillary Glucose 138 H 90 Calcium 7.4 L Phosphorus 3.2 Magnesium 2.0 Total Bilirubin 0.9 AST 40 H ALT 20 Alkaline Phosphatase 88 Total Protein 5.0 L Albumin 2.0 L 11/18/22 11/17/22 11/17/22 05:25 21:03 16:47 WBC 6.9 RBC 2.79 L Hgb 8.9 L Hct 28.1 L MCV 100.7 H MCH 31.9 D MCHC 31.7 L RDW 17.6 H Plt Count 143 L MPV 10.9 H % Immature Plt Fraction 5.7 Sodium Potassium Chloride Carbon Dioxide Anion Gap BUN Creatinine Estim Creat Clear Calc Estimated GFR Glucose POC Capillary Glucose 114 H 129 H Calcium Phosphorus Magnesium Total Bilirubin AST ALT Alkaline Phosphatase Total Protein Albumin 11/17/22 12:03 WBC RBC Hgb Hct MCV MCH MCHC RDW Plt Count MPV % Immature Plt Fraction Sodium Potassium Chloride Carbon Dioxide Anion Gap BUN Creatinine Estim Creat Clear Calc Estimated GFR Glucose POC Capillary Glucose 112 H Calcium Phosphorus Magnesium Total Bilirubin AST ALT Alkaline Phosphatase Total Protein Albumin Discharge Plan Discharge Attending physician on discharge: Moi Seay Consulting providers: Amy Gloria ; Danny Haddad ; Jj Diego Discharging Clinician: Moi Seay Patient Disposition:
[2022-11-18 13:00] VITALS: BP 131/80; PULSE 84; RESP 16; TEMP 36.6; O2SAT 100
[2022-11-18] MEDS: ONDANSETRON INJ 4 MG/2 ML VIAL IV PUSH (13:40)
[2022-11-18 14:10] LABS: EDCOVIDSCREEN Negative (Negative)
== END 2022-11-18 16:15 | DRG 372 ==
LOC: ANHED 17:41 → ANHIMU 20:50 → ANH3MEDSUR 11-10 17:21
PROVIDERS: Emergency Medicine; Family Medicine; Internal Medicine Gastroenterology; Nurse Practitioner Family; Admitting Provider Internal Medicine; Emergency Provider Physician Assistant; PCP Family Medicine; Visit Provider Chiropractor
DX: K68.19 Other retroperitoneal abscess (principal); R18.8 Other ascites; E03.9 Hypothyroidism, unspecified; E87.6 Hypokalemia; I49.3 Ventricular premature depolarization; Z20.822 Contact with and (suspected) exposure to COVID-19; K21.9 Gastro-esophageal reflux disease without esophagitis; M85.80 Other specified disorders of bone density and structure, unspecified site; Z87.891 Personal history of nicotine dependence
CPT/HCPCS: 36415; 36569; 49083; 71046; 71275; 74177; 75989; 80048; 80053; 80074; 81001; 82040; 82042; 82150; 82274; 82945; 82948; 83605; 83615; 83690; 83735; 83880; 84100; 84157; 84443; 84466; 84478; 84484; 85025; 85027; 85055; 85610; 85730; 87040; 87070; 87075; 87076; 87077; 87185; 87205; 87426; 87636; 88108; 88305; 88342; 89051; 93005; 93306; 96361; 96365; 96366; 96367; 97110; 97161; 97165; 97530; 97535; 99285; A9270; C1729; C1751; C1769; C9113; C9803; G0378; J0696; J1815; J1940; J2405; J2543; J3475; J3480; J7040; J7050; J7120; Q9967

== ENCOUNTER 2022-12-06 14:57 | Outpatient (CLI) | payer MEDICARE, SELFPAY ==
[2022-12-06 18:51] LABS: Hematocrit 33.8 % (37.0-47.0); Hemoglobin 10.6 g/dL (12.0-15.0); Mean Corpuscular HGB Conc 31.4 g/dl (32-36); Mean Corpuscular Hemoglobin 29.8 pg (26-34); Mean Corpuscular Volume 94.9 fl (80-100); Mean Platelet Volume 11.4 fl (7.4-10.4); Platelet Count Result 279 k/mm3 (150-375); Red Blood Count 3.56 M/mm3 (4.2-5.4); Red Cell Distribution Width 15.1 % (11.5-14.5); White Blood Count 7.1 K/mm3 (4.5-10.0)
[2022-12-06 19:17] LABS: Alanine Aminotransferase 33 U/L (6-35); Albumin Level 2.8 g/dL (3.5-5.1); Alkaline Phosphatase 109 U/L (38-126); Anion Gap 1 mmol/L (8-16); Aspartate Amino Transferase 46 U/L (14-36); Bilirubin,Total 0.9 mg/dL (0.2-1.3); Blood Urea Nitrogen 10 mg/dL (7-17); Calcium 8.1 mg/dL (8.4-10.2); Carbon Dioxide 32 mmol/L (22-30); Chloride 106 mmol/L (98-107); Estimated Glomerular Filt Rate > 60; Glucose 92 mg/dL (65-110); Potassium 3.5 mmol/L (3.4-5.0); Sodium 139 mmol/L (137-145)
[2022-12-06 19:26] LABS: NT Pro B Type Natriuretic Pept 537 pg/mL (19.9-100)
== END 2022-12-06 14:58 | disposition home or self-care (01) ==
PROVIDERS: PCP Family Medicine; Visit Provider Nurse Practitioner Family
DX: K68.19 Other retroperitoneal abscess (principal); R18.8 Other ascites; E03.9 Hypothyroidism, unspecified; R06.9 Unspecified abnormalities of breathing
CPT/HCPCS: 36415; 80053; 83880; 85027

== ENCOUNTER 2023-01-17 10:11 | Outpatient (CLI) | payer MEDICARE, SELFPAY ==
[2023-01-26 18:58] LABS: Calprotectin, Stool 67 mcg/g
== END 2023-01-17 10:12 | disposition home or self-care (01) ==
LOC: ANHLAB 10:13
PROVIDERS: PCP Family Medicine; Visit Provider Internal Medicine Gastroenterology
DX: K52.9 Noninfective gastroenteritis and colitis, unspecified (principal); R63.4 Abnormal weight loss
CPT/HCPCS: 83993

== ENCOUNTER 2023-10-05 08:14 | Outpatient (CLI) | payer MEDICARE, SELFPAY ==
--- NOTE | ~2023-10-05 | CT_ITS ---
EXAMINATION: CT brain & sinus wo con DATE: 10/05/2023 08:54 INDICATION: Headache, unspecified. TECHNIQUE: Computed tomography (CT) of the head and paranasal sinuses was performed without intraveno us contrast. The mA was adjusted according to patient size. Iterative reconstruction technique was em ployed. The dose-length product was 756.67 mGy-cm. COMPARISON: None FINDINGS: CT HEAD: There is no intracranial hemorrhage, acute infarction, or abnormal intracranial mass lesion. The ventricles are normal in size. There are likely changes of ocular lens replacement surgeries. Th e mastoid air cells are normal. CT SINUSES: The frontal, ethmoid, maxillary, and sphenoid sinuses are clear. There is rightward devia tion of the nasal septum. The ostiomeatal units are patent. IMPRESSION: 1. Normal brain. 2. Rightward deviation of the nasal septum. Reviewed, dictated and finalized at location E. NEWS DIRECTOR
--- NOTE | ~2023-10-05 | US_ITS ---
EXAMINATION: US thyroid DATE: 10/05/2023 09:35 INDICATION: Nontoxic multinodular goiter. TECHNIQUE: Multiple ultrasound images of the thyroid were obtained. COMPARISON: Thyroid ultrasound 05/09/2022 FINDINGS: The right thyroid lobe measures 3.9 x 1.3 x 1.3 cm. The left thyroid lobe measures 3.3 x 1.0 x 1.2 c m. In the right thyroid lobe, there is a 9 mm solid, hypoechoic, wider than tall nodule with ill-def ined margin without echogenic foci (TI-RADS TR4). In the right thyroid lobe, there is a 9 mm solid, h ypoechoic, wider than tall nodule with lobulated margin without echogenic foci (TR4). IMPRESSION: 1. Small thyroid nodules, likely not clinically significant. No follow-up is needed. Reviewed, dictated and finalized at location E. GER OF COMPLIANCE IMPRESSION: 1. Small thyroid nodules, likely not clinically significant. No follow-up is ne eded.
== END 2023-10-05 08:15 | disposition home or self-care (01) ==
PROVIDERS: PCP Family Medicine; Visit Provider Family Medicine
DX: E04.2 Nontoxic multinodular goiter (principal); R51.9 Headache, unspecified; G89.29 Other chronic pain; R42 Dizziness and giddiness; J34.2 Deviated nasal septum
CPT/HCPCS: 70450; 70486; 76536

== ENCOUNTER 2025-04-06 12:14 | Outpatient (CLI) | payer MEDICARE, SELFPAY ==
--- NOTE | ~2025-04-06 | DEXA_ITS ---
Bone Density Report Name: PARISH SORIANO Age: 75 Sex: Female Ethnicity: White Date of : 1950 Indication: osteopenia; height loss; hysterectomy; Referring Provider: NAPOLEON SWANSON Study: Bone densitometry was performed. Exam Date: April 06, 2025 Accession number: [id number] Bone Density: Region BMD T-score Z-score Classification AP Spine(L1-L4) 1.186 1.3 3.6 Normal Femoral Neck (Left) 0.576 -2.5 -0.5 Osteoporosis Total Hip (Left) 0.768 -1.4 0.3 Osteopenia Femoral Neck (Right) 0.617 -2.1 -0.1 Osteopenia Total Hip (Right) 0.772 -1.4 0.3 Osteopenia Total Hip Mean 0.770 -1.4 0.3 Osteopenia World Health Organization criteria for BMD impression classify patients as: Normal (T-score at or above -1.0), Osteopenia (T-score between -1.0 and -2.5), or Osteoporosis (T-score at or below -2.5). 10-year Fracture Risk: FRAX not reported because: Some T-score for Spine Total or Hip Total or Femoral Neck at or below -2.5 Previous Exams: Region Exam Age BMD T-score BMD Change BMD Change Date g/cm2 vs Baseline vs Previous Total Hip(Left) 04/06/2025 75 0.768 -1.4 -0.031 (-3.9%) -0.031 (-3.9%) 05/26/2021 71 0.799 -1.2 Total Hip(Right) 04/06/2025 75 0.772 -1.4 -0.030 (-3.8%) -0.030 (-3.8%) 05/26/2021 71 0.802 -1.1 *Denotes significance at 95% confidence level, LSC for Total Hip = 0.027 g/cm2 # Denotes dissimilar scan types or analysis methods Clinical Information Provided by Patient: Has used the following medications: Fosamax (i.e. alendronate), HRT (i.e. estrogen/hormone therapy), Calcium Has the following medical conditions: Hysterectomy Patient maximum height was 65 Menopause Age: 50 No regular weight bearing exercise Drinks caffeinated beverages Onset of menses at age 13 Number of children 0 Impression: The patient has osteoporosis, based on the Left Femoral Neck T-score. No significant bone loss was observed. Discussion: INCREASED RISK OF FRACTURE. BONE DENSITY IS UNDESIRABLY LOW AT ONE OR MORE SKELETAL SITES, CONSISTENT WITH POSTMENOPAUSAL OSTEOPOROSIS. This patient's lowest T-score meets the World Health Organization's (WHO) criteria for osteoporosis at one or more sites (T-score -2.5 or below). In untreated patients, the risk of osteoporotic fracture increases approximately two-fold for each 1.0 SD decrease in T-score. Low bone density is not the only risk factor for fracture; also consider factors such as patient's age, frailty or poor health, risk of falling, risk of injury, previous osteoporotic fracture, family history of osteoporosis, cigarette smoking, low body weight, etc. Not everyone with low bone mineral density has osteoporosis; osteomalacia and other metabolic bone disorders should also be considered. Patients who have osteoporosis should be evaluated for specific diseases and conditions (secondary causes) that may cause or contribute to bone loss. The [place] Association of Clinical Endocrinologists (AACE) and National Osteoporosis Foundation (NOF) recommend pharmacologic intervention for all postmenopausal women whose T-score is in this range. The patient should follow a healthful lifestyle (good nutrition with adequate calcium and vitamin D, and appropriate weight-bearing exercise). Follow-Up: Consider a repeat BMD and Vertebral Fracture Assessment (VFA) exam in 2 years or sooner if medically necessary, to reassess this patient's status. Reported by: ELEANOR on 04/06/2025 12:54:00 PM. Reviewed, dictated and finalized at location A.
--- OUTSIDE RECORDS SUMMARY | 2025-04-06 12:17 | XMS_ITS | Encounter Summary ---
Author Organization [facility] Healthcare Address [address] [place] [address] Care Team Providers Care Production Cost Estimator Name Role Phone Olman Lopez MD Unavailable [phone] Jose Luis Lin MD Primary Care Provider Jolanta Varela Unavailable Jemal Wilson MD Unavailable [phone] Gui Gallardo MD Unavailable + Reason for Visit * Auth/Cert (Routine) Specialty Diagnoses / Procedures Referred By Contac t Referred To Contact Diagnoses History of appendicitis History of appendicitis [Z87.19] Procedures NC ANRCT XM SURG REQ ANES GENERAL SPI/EDRL DX NC LAPAROSCOPIC APPENDECTOMY LAPAROSCOPIC APPENDECTOMY EXAM UNDER ANESTHESIA - RECTUM Referral ID Status Reason Start Date Expiration Date Visits Re quested Visits Authorized [id number] 1 1 Encounter Details Date Type Department Care Team (Late st Contact Info) Description 08/14/2024 Hospital Encounter [facility] Operating Room [address] [address] Jemal Wilson MD [phone] [place] [address] Social History Tobacco Use Types Packs/Day Years Used Date Smoking Tobacco: Former Cigarettes 2 12 1 973 - 1984 Smokeless Tobacco: Never Alcohol Use Standard Drinks/Week Comments No 0 (1 standard drink = 0.6 oz pur e alcohol) AUDIT-C Answer Date Recorded Q1: How often do you have a drink containing alcohol? Never 09/08/2024 Q2: How many drinks containi ng alcohol do you have on a typical day when you are drinking? Patient does not drink Q3: How often do you have si x or more drinks on one occasion? Never 09/08/2024 Personal Safety Answer Date Recorded Have you ever been in or are you currently in a harmful physical or emotional relationship or is someone making you feel afraid or unsafe? Denies 09/08/2024 Comments No Sex and Gender Information Value Date Recorded Sex Assigned at Not on file Legal Sex Female 1:10 AM ASSEMBLY STOCK SUPERVISOR Gender Identity Not on file Sexual Orientation Not on file documented as of this encounter Last Filed Vital Signs Vital Sign Reading Time Taken Comments Blood Pressure - - Pulse - - Temperature - - Respiratory Rate - - Oxygen Saturation - - Inhaled Oxygen Concentration - - Weight 66.7 kg (147 lb) 07/31/2024 9:00 AM ASSEMBLY STOCK SUPERVISOR Height 160 cm (5' 3) 07/31/2024 9:00 AM ASSEMBLY STOCK SUPERVISOR Body Mass Index 26.04 07/31/2024 9:00 AM ASSEMBLY STOCK SUPERVISOR documented in this encounter Functional Status * AUDIT-C Score Answer Date of Assessment Author 0 09/08/2024 10:57 AM ASSEMBLY STOCK SUPERVISOR Karen Hitchcock RN * Question Answer Date of Assessment Author Q1: How often do you have a drink containing alcohol? Never 09/08/2024 10:57 AM Malena Tabor RN Q2: How many drinks containing alcohol do you have on a typical day when you are drinking? Patient does not drink 09/08/2024 10:57 AM Karen Tabor RN Q3: How often do you have six or more drinks on one occasion? Never 09/08/2024 10:57 AM Malena Tabor RN documented as of this encounter Miscellaneous Notes * Pre-Procedure Instructions - Marcella Fonseca NP - 08/08/2024 9:36 AM ASSEMBLY STOCK SUPERVISOR [facility] CP[facility] Clinic Location: [facility] The night before your surgery: * Do not eat anything after midnight the night before your procedure. The morning of your surgery: * You may have clear liquids on your surgery day. You must stop drinking two hours before you arrive to the surgery facility. Acceptable clear liquids include water, clear sports drinks, black coffee, tea, or clear soda. DO NOT drink any milk, creamer, or alcohol. * Your surgeon's office may have provided additional instructions or restrictions. Please follow those instructions. * You may brush your teeth and rinse your mouth out. * Do not glue your dentures. * Do not wear jewelry, body piercings, makeup, hairpins, false eyelashes or contact lenses to the hospital. * Leave any valuables at home or with your family. * If you have an implantable device with a remote, bring the remote with you on the day of surgery. * If you use home oxygen, bring your portable oxygen tank with you on the day of surgery Outpatient Surgery: * You must have a responsible adult drive you home and stay with you for 24 hours after your surgery * You cannot be alone at home or in a hotel * Please call your surgeon's office if you do not have someone to drive you home and/or stay with you after surgery * Please bring any items you may need to spend the night in the hospital. Sometimes patients need to be cared for in the hospital overnight. If you are a smoker: * You should prepare for your surgery and recovery well ahead of time. Stop smoking at least 2 weeks before surgery to help prevent infection and help your body recover faster. Ask your surgeon for tools to help you quit or call 7-543-FBGAIIN ( ). Visit Smokefree.gov for more information. * Do not smoke during the 24 hours before surgery. If you have Sleep Apnea (WALT): * Bring your CPAP/BiPAP/VPAP machine to the hospital the day of your surgery * For a few days after your surgery, you will need to wear your CPAP/ BiPAP/VPAP machine any time your are sleeping. This includes when you take a nap. If you have Diabetes: * If your blood sugar is low before you come to the hospital, drink a small amount of sugar water or clear juice like apple or cranberry juice. DO NOT drink orange or pineapple juice. These are not clear liquids. * Please call your surgeon and/or the CPAP Clinic if you have any questions. Instructions For Your Medications: Pre-Surgery Instructions: Medication Instructions alendronate (FOSAMAX) 70 mg tablet Take as prescribed calcium carbonate (CALCIUM 500 ORAL) Don't take on day of surgery Creon 24,000-76,000 -120,000 unit capsule Don't take on day of surgery ERGOCALCIFEROL, VITAMIN D2, ORAL Don't take on day of surgery folic acid (FOLVITE) 1 mg tablet Don't take on day of surgery Gas Relief Extra Strength 125 mg chewable tablet Don't take on day of surgery levothyroxine (SYNTHROID) 50 mcg tablet Take morning of surgery LYRICA 150 mg capsule Take morning of surgery traMADoL (ULTRAM) 50 mg tablet Take on day of surgery if needed metroNIDAZOLE (FLAGYL) 500 mg tablet Per surgeon's instructions neomycin (MYCIFRADIN) 500 mg tablet Per surgeon's instructions General Instructions For Medications: * Stop all of these medications 5 days prior to your surgery: excedrin, motrin, advil, ibuprofen, aleve, naproxen, meloxicam, celebrex, celecoxib. For medications that you are instructed to take on the morning of surgery, take the medications with a few sips of water. Stop all of these medications 7-14 days prior to your surgery: Vitamin E, Herbal medicines, Diet Pills Call your surgeon and the CPAP clinic if any of the following happens before surgery: Any changes in your health You have a fever You have any signs of an infection (chest, urinary tract or tooth) You have been to the Emergency Room or were in the hospital You have started taking any new medications MBLY STOCK SUPERVISOR * Perioperative Nursing Note - Edna Gonzalez RN - 07/31/2024 9:16 AM ASSEMBLY STOCK SUPERVISOR [facility] Preoperative Assessment [facility] Planning Perioperative Nursing Note Telephone Preoperative Evaluation ([facility]) - TELEPHONE ONLY, NO PHYSICAL EXAM Date: 07/31/24 This assessment was completed with the patient. Vitals: 07/31/24 0900 Weight: 66.7 kg (147 lb) Height: 160 cm (5' 3) CHEST CIRCUMFERENCE: n/a Social History Tobacco Use Smoking Status Former Current packs/day: 0.00 Average packs/day: 2.0 packs/day for 12.0 years (24.0 ttl pk-yrs) Types: Cigarettes Start date: 1972 Quit date: 1984 Years since quittin.9 Smokeless Tobacco Never Substance and Sexual Activity Drug Use Not Currently Alcohol Use Q1: How often do you have a drink containing alcohol?: Never Q2: How many drinks containing alcohol do you have on a typical day when you are drinking?: Patientdoes not drink Q3: How often do you have six or more drinks on one occasion?: Never Outpatient Medications Marked as Taking for the 08/14/24 encounter (Hospital Encounter) Medication Sig Dispense Refill alendronate (FOSAMAX) 70 mg tablet Take 1 tablet (70 mg total) by mouth every 7 days Take on Sunday calcium carbonate (CALCIUM 500 ORAL) Take 1,000 mg by mouth timber framer before breakfast Creon 24,000-76,000 -120,000 unit capsule 1 capsule 3 (three) times a day with meals ERGOCALCIFEROL, VITAMIN D2, ORAL Take 2,000 Units by mouth timber framer before breakfast folic acid (FOLVITE) 1 mg tablet Take 1 tablet (1 mg total) by mouth timber framer before breakfast Gas Relief Extra Strength 125 mg chewable tablet Take 2 tablets (250 mg total) by mouth as needed for flatulence levothyroxine (SYNTHROID) 50 mcg tablet Take 1 tablet (50 mcg total) by mouth timber framer before breakfast LYRICA 150 mg capsule Take 1 capsule (150 mg total) by mouth 2 (two) times a day 1 traMADoL (ULTRAM) 50 mg tablet Take 1 tablet (50 mg total) by mouth every 6 (six) hours as needed for pain (Patient taking differently: Take 1 tablet (50 mg total) by mouth every 6 (six) hours as needed for pain) 20 tablet 0 [DISCONTINUED] amitriptyline (ELAVIL) 25 mg tablet Take 1 tablet (25 mg total) by mouth nightly Implants Type Not Specified [employer] 4mm 28mm Cannulated Blunt Tip Low Profile Screw Bone [id number] - [id number] - Implanted (Left) Patella Inventory item: [employer] 4mm 28mm Cannulated Blunt Tip Low Profile Screw Bone [id number] Model/Cat number: [id number] Ballet Company Member: [employer] As of 07/14/2022 Status: Implanted [employer] 4mm 30mm Cannulated Blunt Tip Low Profile Screw Bone [id number] - [id number] - Implanted (Left) Patella Inventory item: [employer] 4mm 30mm Cannulated Blunt Tip Low Profile Screw Bone [id number] Model/Cat number: [id number] Ballet Company Member: [employer] As of 07/14/2022 Status: Implanted SKIN Piercings Remaining: Yes Wound (LDAs) Type of Wound (LDA): (rectal wound) SCREENINGS Nina index score: 100 NUTRITION PATIENT CARE PLANNING Advance Directives (For Healthcare) Have you reviewed your Advance Directive and is it valid for this stay?: No Advance Directive: Patient has advance directive, copy not in chart Advance Directive not in Chart: Copy requested from other (Comment) (pt) Assistive Devices/DME: Eyeglasses Discharge Planning Type of Residence: Private residence Living Arrangements: Alone Support Systems: Friends/neighbors Assistance Needed: friend to provide DC ride post-op SELF SEALING FUEL TANK REPAIRER NO ADDITIONAL COMMENTS/ FOLLOW UP MBLY STOCK SUPERVISOR * Pre-Procedure Instructions - Edna Gonzalez RN - 07/31/2024 9:15 AM ASSEMBLY STOCK SUPERVISOR [facility] ([facility]) PRE-SURGICAL NURSING INSTRUCTIONS Telephone Assessment General Information Discussed with Patient: Surgery location provided to patient. Arrival time and surgical time will be provided to the patient by their surgeon. You should wear clothing that is clean, loose, comfortable and easy to get in and out of on the dayof surgery. You should remove nail coverings, artificial nails and nail mauritian prior to the day of surgery. This is to lower your risk of infection and to allow the day of surgery team to monitor your oxygen levels. You should leave your valuables and any jewelry at home. No metal or piercings are allowed in the operating room. You should bring your insurance card, a photo ID (example: Company Pilot's License) and a method of payment for any insurance copay, deductible or copay for discharge medications. You should bring a complete, up-to-date, list of all your medications on the day of surgery, including any over the counter medications or supplements you may take. Please note on your medication list, the last date & time you took each medication. The healthcare team, on the day of surgery, will ask for this information. You should bring your Advanced Directive and/or Living Will with you on the day of surgery if you have not verified a copy is already in your Epic Chart. If you are having surgery at [facility], please arrive on the day of surgery with the name and phone number of your local 24 hour pharmacy. Due to evening discharges, your routine pharmacy may be closed. In order to obtain your prescriptions that evening, your surgeon may need to send prescriptions to this pharmacy or have you take prescriptions to this pharmacy when you are discharged. Without this information, you may not be able to obtain your prescriptions that evening. A Guide for Patients Having Surgery: Your Pathway to Excellent Care OUR GOAL IS TO PROVIDE YOU WITH EXCELLENT CARE Use this guide to learn about what you can do before, during and after surgery to help your recovery. You are the most important person on your health care team. By becoming informed and involved, you can contribute to the success of your surgery. If your surgeon's directions are different than those in this guide, talk with your nurse or surgeon to confirm the information. It is important that you understand how to take care of yourself at home after surgery. Be sure to bring this guide with you on the day of surgery and take it home with you after surgery. Write down questions for your nurse or surgeon on the last page of this booklet. Important pages to be reviewed BEFORE surgery: Page 1: QR codes for Surgery Center maps Page 3: Types of Anesthesia Page 5: Tips for the day & night before surgery Page 6: When to stop eating BEFORE surgery and examples of clear liquids Page 7-10: Preventing Infection: Chlorhexidine Gluconate (CHG) Bathing Instructions You may access A Guide for Patients Having Surgery: Your Pathway to Excellent Care by the followinglink: [email or web address] How To Prepare Your Skin For Surgery Below is the Pre-Surgical Bathing Protocol you should follow for your surgery. If your surgeon provides you different bathing instructions, please follow your surgeon's orders. 2 Day CHG Bathing Protocol (no nasal ointment) PREVENTING INFECTION (DECOLONIZATION): Decolonization is the use of a topical antiseptic soap and sometimes a nasal ointment to remove bacteria (germs) from the skin's surface. Antiseptic soap: Chlorhexidine gluconate or CHG (brand name: Hibiclens??) Before surgery, your entire body must be thoroughly cleaned. CHG helps to reduce the bacteria on your skin. You may be given one or more bottles of CHG or you may be asked to obtain from your preferred pharmacy. Be sure to ask your pharmacist if you need help finding this product. Nasal ointment: Mupirocin (brand name: Bactroban) Your surgeon may also prescribe a topical ointment that is rubbed inside each of the nostrils to reduce the bacteria in your nose. Mupirocin ointment requires a prescription. If needed, it will be prescribed by your surgeon and obtained from your preferred pharmacy. SHOWERING WITH ANTISEPTIC SOAP (CHG) What You Need For Each Shower 60 mL (?? cup) of CHG 2 clean washcloths CHG Bathing Instructions First, shampoo and rinse your hair with your own shampoo (no conditioners). Do this so the antiseptic soap isn't washed off by your shampoo. Wash face with warm water. Turn off shower and stand away from the water. Use 2 clean washcloths to apply the antiseptic soap to all areas as described below: Pour 30 mL (1/8 cup) of CHG on washcloth #1: Using washcloth- start at jawline and firmly massage the soap into the skin in a circular motion to clean neck, shoulders, chest, back, both armpits, arms, hands and abdomen. Finish with legs and feet. Pour 30 mL (1/8 cup) of CHG on washcloth #2: Using washcloth- firmly massage the soap into the skinin a circular motion to clean groin area, perineum and buttocks. (Do not use CHG on genital area.) Michael Points: The CHG antiseptic soap will not bubble or lather very much. If you get soap in your eyes, ears or mouth, rinse well with cool water. When finished, leave the soap on your skin for 2 minutes before rinsing. Dry off with a clean fresh towel. Wear clean clothes or pajamas to sleep in. After showering DO NOT put on deodorant, hair products or conditioners, lotions or creams, powders,Vaseline or any non-essential products. If you cannot reach the surgical site, such as the back, please have someone help you. Shaving: You may shave your face, legs and underarms during your evening shower before you apply the CHG antiseptic soap. Be careful not to cut or mane your skin. Avoid shaving on the day of surgery. Deodorant: Patients following the 5-Day CHG protocol may apply deodorant on the days leading up to surgery, being sure, however, to avoid use on the evening before and day of surgery. All other products should be avoided for the full 5 days. 2-Day CHG Bathing Protocol The Evening Before Surgery: Take a shower with Antiseptic soap (CHG). Follow the steps for ???Showering with Antiseptic Soap (CHG)?? above. Change all linens on your bed so you are sleeping in clean fresh sheets and pillowcases. Remove nail coverings, artificial nails and nail mauritian. The Morning of Surgery: Take a shower with Antiseptic soap (CHG). Follow the steps for ???Showering with Antiseptic Soap (CHG)?? above. Put clean clothes on after you shower. Travel/Exposure Screening: Travel Screening Have you traveled outside the [place] in the last 6 months?: No Exposure Screening Have you been exposed to anyone who is sick in the last 30 days?: No Have you been exposed to or tested positive for COVID-19 within the last 10 days?: No Infectious Disease Screening Are you having any of the following:: None As of 06/20/2022 any COVID TESTING required for surgery will be set up by your surgeon's office. Please reach out to your surgeon's office if you develop any COVID symptoms, test positive for COVID or are exposed to a COVID positive person. If you have questions, please call the CPAP Staff at [phone], Sunday-Sunday 8am-4:30pm. All patients should read the below section: Information on [facility] or [facility] ([facility]): Please view [email or web address] (Patient and Visitor Information) for parking, directions, lodging and more. For MyChart information, to activate account or password recovery, please go to [email or web address] or call [phone] (toll-free: [phone]), Sun- Sunday 8am-5pm. Information for Suicide Prevention: National Suicide Prevention Lifeline (9-470- 311-USKV (7918)) or call or text 967. Chat resources: [employer]. Surgery Times: For patients having surgery @ [facility], if your surgeon's office has not notified you of your surgery time by 2pm THE BUSINESS DAY BEFORE your surgery, please call the surgery center at [phone] and ask for your surgeon's office The [facility] for Preoperative Assessment & Planning ([facility]) does not provide arrival times for theday of surgery or provide the duration of surgery. This information is provided by your surgeon's office or by the center where you are having surgery. We appreciate your understanding. MBLY STOCK SUPERVISOR documented in this encounter Plan of Treatment Not on file documented as of this encounter Visit Diagnoses Diagnosis History of appendicitis- Primary documented in this encounter Admitting Diagnoses Diagnosis History of appendicitis documented in this encounter Discontinued Medications Medication Sig Discontinue Reason Start Date End Da te amitriptyline (ELAVIL) 25 mg tablet Take 1 tablet (25 mg total) by mouth nightly Therapy completed 03/20/2024 07/31/2024 naloxone (NARCAN) 4 mg/actuation spray,non-aerosol Administer 1 spray into affected nostril(s) as needed for opioid reversal or respiratory depression Call 911. Administer a single spray in one nostril. Repeat every 3 minutes as needed if no or minimal response. Therapy completed 06/19/2024 07/31/2024 oxyCODONE (ROXICODONE) 5 mg immediate release tabletIndications:Pain Take 1 tablet (5 mg total) by mouth every 6 (six) hours as needed for pain Therapy completed 07/03/2024 07/31/2024 oxyCODONE-acetaminophe n (Percocet) 5-325 mg per tabletIndications:Pain ,Do not take on empty stomach Take 1 tablet by mouth every 6 (six) hours as needed for pain Do not take an empty stomach or lie down immediately after taking, do not mix with alcohol or other narcotic pain medications, do not drive after taking Therapy completed 06/19/2024 07/31/2024 documented as of this encounter Care Teams Production Cost Estimator Relationship Specialty Start Date End Date Jose Luis Lin MD PCP - General 03/04/21 Olman Lopez MD Medical Oncologist/Wrecking Car Driver Hematology and Oncology 03/21/18 [place] [address] [address] Physician Martial Arts Instructor Orthopedic Surgery 07/14/22 Jemal Wilson MD [address] [facility] [place] [id number] [place] [address] Surgeon Colon and Rectal Surgery 12/08/22 Gui Gallardo MD [address] [place] [address] Xerox Machine Operator Gastroenterology 12/13/22 documented as of this encounter
--- OUTSIDE RECORDS SUMMARY | 2025-04-06 12:17 | XMS_ITS ---
Author Name Auto Generated, Auto Generated Organization [facility] [employer] [facility] ices Address [address] [place] [address] Phone [phone] Care Team Providers Care Driver'S License Examiner Name Role Phone Foster Resendiz Unavailable [phone] Dayan Tolbert Unavailable [phone] Moi Lopez Unavailable [phone] Functional Status No Results Mental Status No Results Allergies and Intolerances Name Onset Date Reaction Severity quinapril (Allergy) SunNov 18 16:15:00 EDT 2022 Medications Medication Directions Start Date End Date furosemide 20 mg tablet 1 tablet TABLET Oral 1 Time Daily Indication: CHF SunDec 01 15:00:00 EDT 2022Dec 04 01:00:00 ED2022 potassium chloride ER 20 mEq tablet,extended release 1 tablet TABLET, EXTENDED RELEASE Oral 1 Time Daily Indication: Hypokalemia SunDec 01 15:00:00 ED2022Dec 04 01:00:00 ED2022 Calcium 500 500 mg calcium (1,250 mg) chewable tablet 1 tablet TABLET,CHEWABLE Oral 1 Time Daily Indication: Supplement SunDec 01 15:00:00 EDT 2022Dec 04 01:00:00 ED2022 potassium chloride ER 20 mEq tablet,extended release 40 mEq TABLET, EXTENDED RELEASE Oral 1 Time Daily Indication: hypokalemia SunNov 24 14:00:00 EDT 2022Dec 01 15:40:00 ED2022 furosemide 40 mg tablet 1 tab TABLET Ora l 1 Time Daily Indication: CHF SunNov 25 09:00:00 ED2022Dec 01 15:39:00 2022 azithromycin 500 mg tablet 1 tablet TABL ET Oral 1 Time Daily for 1 Day Indication: COVID (+) SunNov 25 07:00:00 ED2022Nov 24 16:39:00 EDT 2022 simethicone 125 mg chewable tablet 2 tabs TABLET,CHEWABLE Oral 2 Times Daily Indication: excessive gas SunNov 24 20:00:00 EDT 2022Dec 04 01:00:00 EDT 2022 furosemide 40 mg tablet 1 tablet TABLET Oral 1 Time Daily for 6 Days Indication: CHF SunNov 24 07:00:00 EDT 2022Nov 24 14:25:00 EDT 2022 furosemide 20 mg tablet 1 tablet TABLET Oral 1 Time Daily for 1 Day Indication: CHF SunNov 23 07:00:00 EDT 2022Nov 24 06:59:00 EDT 2022 ondansetron 8 mg disintegrating tablet 1 tablet TABLET,DISINTEGRATING Oral PRN Every 6 Hours Indication: N/V SunNov 23 13:00:00 EDT 2022Dec 04 01:00:00 EDT 2022 furosemide 20 mg tablet 1 tablet TABLET Oral 1 Time Daily for 20 Days Indication: CHF SunDec 01 07:00:00 EDT 2022Nov 24 14:25:00 EDT 2022 potassium chloride ER 20 mEq tablet,extended release 1 tablet TABLET, EXTENDED RELEASE Oral 1 Time Daily for 1 Day Indication: Hypokalemia SunNov 23 07:00:00 EDT 2022Nov 24 06:59:00 EDT 2022 potassium chloride ER 20 mEq tablet,extended release 30mEq TABLET, EXTENDED RELEASE Oral 1 Time Daily Indication: Hypokalemia SunNov 23 17:00:00 EDT 2022Nov 24 14:21:00 EDT 2022 levothyroxine 75 mcg tablet 1 tablet TAB LET Oral 1 Time Daily Indication: Hypothyroidism SunNov 21 17:00:00 EDT 2022Dec 04 01:00:00 EDT 2022 potassium chloride ER 20 mEq tablet,extended release 1 tablet TABLET, EXTENDED RELEASE Oral 1 Time Daily for 7 Days Indication: Hypokalemia SunNov 22 07:00:00 EDT 2022Nov 23 17:46:00 EDT 2022 loperamide 2 mg capsule 1tab CAPSULE Ora l PRN 3 Times Daily Indication: diarrhea at pt.'s request for diarrhea SunNov 20 13:46:00 EDT 2022Dec 04 01:00:00 EDT 2022 levothyroxine 50 mcg tablet 1 tab TABLET Oral 1 Time Daily for 90 Days Indication: Hypothyroidism SunNov 19 01:00:00 EDT 2022Nov 19 03:07:00 EDT 2022 omeprazole 40 mg capsule,delayed release 1 cap CAPSULE,DELAYED RELEASE (ENTERIC COATED) Oral 1 Time Daily for 90 Days Indication: GERD SunNov 19 01:00:00 EDT 2022Dec 04 01:00:00 EDT 2022 levothyroxine 50 mcg tablet 1 tab TABLET Oral 1 Time Daily Indication: Hypothyroidism SunNov 19 01:00:00 EDT 2022Nov 21 17:08:00 EDT 2022 acetaminophen 325 mg tablet 1 tab TABLET Oral PRN Every 6 Hours Indication: PAIN (As needed for pain)*(Do NOT exceed 3gm/day APAP from all sources)*(Use Caution with other APAP products)* SunNov 18 16:03:00 EDT 2022Dec 04 01:00:00 EDT 2022 TUBErsoL 5 tub. unit/0.1 mL intradermal injection solution 0.1 ml VIAL (ML) Intradermal 1 Time Weekly for 2 Weeks Indication: TB 1st injection on admission, then one week after. Read between 48 and 72 hours SunNov 19 01:00:00 EDT 2022Dec 03 00:59:00 EDT 2022 TUBErsoL 5 tub. unit/0.1 mL intradermal injection solution Read Results VIAL (ML) Other 1 Time Weekly for 2 Weeks Indication: TB Read results between 48-72 hours after 1st and 2nd (1 week apart). If positive do chest x-ray. SunNov 21 01:00:00 EDT 2022Dec 04 01:00:00 EDT 2022 metroNIDAZOLE 500 mg tablet 1 tab TABLET Oral Every 8 Hours for 5 Days Indication: Infection SunNov 18 16:03:00 EDT 2022Nov 23 16:02:00 ED2022 amoxicillin 875 mg-potassium clavulanate 125 mg tablet 1 tab TABLET Oral Every 12 Hours for 5 Days Indication: Infection SunNov 18 16:03:00 T 2022Nov 23 16:02:00 ED2022 furosemide 20 mg tablet 1 tab TABLET Ora l 1 Time Daily for 30 Days Indication: Edema SunNov 18 16:03:00 T 2022Nov 23 13:14:00 ED2022 spironolactone 25 mg tablet 1 tab TABLET Oral 1 Time Daily for 30 Days Indication: Hypertension SunNov 18 16:03:00 EDT 2022Dec 04 01:00:00 EDT 2022 cholecalciferol (vitamin D3) 50 mcg (2,000 unit) capsule 1 cap CAPSULE Oral 1 Time Daily Indication: Vitamin Supplement SunNov 18 16:03:00 EDT 2022Dec 04 01:00:00 EDT 2022 traMADoL 50 mg tablet 1 tab TABLET Oral PRN 2 Times Daily Indication: Pain SunNov 18 16:03:00 EDT 2022Dec 04 01:00:00 EDT 2022 omeprazole 40 mg capsule,delayed release 1 cap CAPSULE,DELAYED RELEASE (ENTERIC COATED) Oral 1 Time Daily for 90 Days Indication: GERD SunNov 18 16:03:00 EDT 2022Nov 19 03:06:00 EDT 2022 Problems Active Concerns * Other retroperitoneal abscess* Code: * Start Date: SunNov 18 00:00:00 EDT 2022 * End Date: * Text: * Other ascites* Code: * Start Date: SunNov 18 00:00:00 EDT 2022 * End Date: * Text: * Hypothyroidism, unspecified* Code: * Start Date: SunNov 18 00:00:00 EDT 2022 * End Date: * Text: * Hypokalemia* Code: * Start Date: SunNov 18 00:00:00 EDT 2022 * End Date: * Text: * Ventricular premature depolarization* Code: * Start Date: SunNov 18 00:00:00 EDT 2022 * End Date: * Text: * Fatty (change of) liver, not elsewhere classified* Code: * Start Date: SunNov 18 00:00:00 EDT 2022 * End Date: * Text: * Gastro-esophageal reflux disease without esophagitis* Code: * Start Date: SunNov 18 00:00:00 EDT 2022 * End Date: * Text: * Iron deficiency anemia, unspecified* Code: * Start Date: SunNov 18 00:00:00 EDT 2022 * End Date: * Text: * Nontoxic multinodular goiter* Code: * Start Date: SunNov 18 00:00:00 EDT 2022 * End Date: * Text: * Deficiency of other specified B group vitamins* Code: * Start Date: SunNov 18 00:00:00 EDT 2022 * End Date: * Text: * Vitamin D deficiency, unspecified* Code: * Start Date: SunNov 18 00:00:00 EDT 2022 * End Date: * Text: * Unspecified osteoarthritis, unspecified site* Code: * Start Date: SunNov 18 00:00:00 EDT 2022 * End Date: * Text: * Other specified disorders of bone density and structure, unspecified site* Code: * Start Date: SunNov 18 00:00:00 EDT 2022 * End Date: * Text: * Postherpetic trigeminal neuralgia* Code: * Start Date: SunNov 18 00:00:00 EDT 2022 * End Date: * Text: * Bariatric surgery status* Code: * Start Date: SunNov 18 00:00:00 EDT 2022 * End Date: * Text: * Localized edema* Code: * Start Date: SunNov 18 00:00:00 EDT 2022 * End Date: * Text: * Hypocalcemia* Code: * Start Date: SunDec 01 00:00:00 EDT 2022 * End Date: * Text: * Other disorders of plasma-protein metabolism, not elsewhere classified* Code: * Start Date: SunNov 18 00:00:00 EDT 2022 * End Date: * Text: Reason for Referral Past Medical History
--- OUTSIDE RECORDS SUMMARY | 2025-04-06 12:18 | XMS_ITS | Encounter Summary ---
Author Organization [facility] Address [address] [place] [address] Phone Care Team Providers Care Catering Director Name Role Phone Unavailable Primary Care Provider Unavailabl e Reason for Visit * Reason Comments Medication Refill Encounter Details Date Type Department Care Team (Late st Contact Info) Description 03/07/2023 Refill [facility] - Primary Care - Bob [address] [place] [address] Sarah Gary, ELECTRONIC PREPRESS OPERATOR, OXYGEN EQUIPMENT PREPARER [address] [place] [address] Medication Refill Social History Tobacco Use Types Packs/Day Years Used Date Smoking Tobacco: Never Assessed Comments Unknown Sex and Gender Information Value Date Recorded Sex Assigned at Not on file Legal Sex Female 7:33 PM CDT Gender Identity Not on file Sexual Orientation Not on file documented as of this encounter Plan of Treatment Not on file documented as of this encounter Visit Diagnoses Not on filedocumented in this encounter
--- OUTSIDE RECORDS SUMMARY | 2025-04-06 12:18 | XMS_ITS | Clinical Summary ---
Author Organization [facility] Address [address] [place] [address] Care Team Providers Care Land Leasing Examiner Name Role Phone Drew Weeks MD Primary Care Provider [phone] Source Comments [facility],non-owned Affiliates and Associated Physician Practices is amultiple site organization consisting of ambulatory clinics and hospital sitesin [place], [place], [place] and [place]. This disclosure is being madepursuant to the Care Everywhere program and may not contain all information available regarding this patient. Last updated 18.[facility] Allergies Active Allergy Reactions Criticality Noted Date Comments Other Psychiatric 12/19/2010 Some BP med Medications * Be aware that medications may not be up to date on this document. Alwaysverify current medications with the patient. LORazepam (ATIVAN) 1 MG tablet Take 1 mg by mouth at bedtime. Active traZODone (DESYREL) 100 MG tablet Take 100 mg by mouth at bedtime. Active Active Problems Problem Noted Date Diagnosed Date DDD (degenerative disc disease), lumbar 12/20/19 11 Abdominal pain, RUQ (right upper quadrant) 12/19 Abnormal weight gain 12/19/2010 Other specified intestinal malabsorption 011 GERD (gastroesophageal reflux disease) 1 Family History Medical History Relation Name Comments CAD (Coronary Artery Disease) Brother CAD (Coronary Artery Disease) Father CAD (Coronary Artery Disease) Mother Cancer Mother Hypercholesterolemia Mother Hypertension Mother Relation Name Status Comments Brother Father Mother Social History Tobacco Use Types Packs/Day Years Used Date Smoking Tobacco: Former Cigarettes 2 10 1 - 06/20/1985 Smokeless Tobacco: Never Alcohol Use Standard Drinks/Week Comments No 0 (1 standard drink = 0.6 oz pur e alcohol) Comments Unknown Sex and Gender Information Value Date Recorded Sex Assigned at Not on file Legal Sex Female 11:36 AM FRUIT PICKER MACHINE OPERATOR Gender Identity Not on file Sexual Orientation Not on file Last Filed Vital Signs Vital Sign Reading Time Taken Comments Blood Pressure 129/76 05/08/2011 10:12 AM CDT Pulse 96 05/08/2011 10:12 AM CDT Temperature 36.3 C (97.3 F) 04/10/2011 3:19 PM CDT Respiratory Rate 14 10/19/2015 10:42 AM FRUIT PICKER MACHINE OPERATOR Oxygen Saturation - - Inhaled Oxygen Concentration - - Weight 81.6 kg (180 lb) 10/19/2015 10:42 AM FRUIT PICKER MACHINE OPERATOR Height 162.6 cm (5' 4) 10/19/2015 10:42 AM FRUIT PICKER MACHINE OPERATOR Body Mass Index 30.9 10/19/2015 10:42 AM FRUIT PICKER MACHINE OPERATOR Plan of Treatment Health Maintenance Due Date Last Done Comments BONE DENSITY TESTING 1950 COLOGUARD (AGES 45-75) - COL ON CA SCREENING 1950 COLON MONITORING 1952 COLONOSCOPY - COLON CA SCREENING 1952 CT COLONOGRAPHY - COLON CA SCREENING 1950 Colorectal Cancer Screening 1950 FIT - COLON CA SCREENING 1952 FLEX SIG - COLON CA SCREENING 1950 MAMMOGRAM 1950 HEPATITIS C SCREENING 01/27/1970 DTAP/TDAP/TD VACCINES (1 - Tdap) 01/31/1971 PNEUMOCOCCAL VACCINE 50+ (1 of 1 - PCV) 01/31/2002 ZOSTER VACCINE (1 of 2) 01/31/2002 LIPID TESTING 01/21/2016 01/20/2011 COVID-19 VACCINE (1 - 2023-2 5 season) 2024 DEPRESSION SCREENING 08/27/2024 INFLUENZA VACCINE (#1) 2025 Respiratory Syncytial Virus (RSV) Vaccine Pt: or over 60 yrs (1 - 1-dose 75+ series) 01/31/2027 HEPATITIS B VACCINE Aged Out No longe r eligible based on patient's age to complete this topic HIB VACCINE Aged Out No longer eligi ble based on patient's age to complete this topic HPV VACCINE Aged Out No longer eligi ble based on patient's age to complete this topic MENINGOCOCCAL (Group B) VACC INE SHARED DECISION-MAKING Aged Out No longer eligibl e based on patient's age to complete this topic MENINGOCOCCAL GROUPS A/C/Y/W VACCINE Aged Out No longer eligible b ased on patient's age to complete this topic Procedures Procedure Name Priority Date/Time Associated Diagnosis Comments LIPID PROFILE 01/20/2011 3:40 PM CDT from Last 3 Months or Most Recently Relevant to Health Maintenance Results * (ABNORMAL) LIPID PROFILE (01/20/2011 3:40 PM CDT) Cholesterol 94(L) 125 - 200 mg/dL [facility] HDL Cholesterol 38(L) > OR = 46 mg/dL [facility] Triglycerides 74 <150 mg/dL [facility] LDL Calculated 41 <130 mg/dL (calc) [facility] Comment: Desirable range <100 mg/dL for patients with CHD or diabetes and <70 mg/dL for diabetic patients with known heart disease. CHOL/HDLC RATIO 2.5 < OR = 5.0 (calc) [facility] Comment: Test Performed at: [facility] [address] [place] [address] LEFTY AMAYA DO,MPH 01/20/2011 3:40 PM CDT 01/20/2011 3:44 PM CDT Oz Delgado MD LAB - CHEMISTRY ORDERABLE S Final Result [facility] [id number] [place] [address] from Last 3 Months or Most Recently Relevant to Health Maintenance Insurance MANAGED MEDICARE ADV ANTHEM Care Teams Land Leasing Examiner Relationship Specialty Start Date End Date Drew Weeks MD [address] [place] [phone] PCP - General 10/04/22
--- OUTSIDE RECORDS SUMMARY | 2025-04-06 12:18 | XMS_ITS | Encounter Summary ---
Author Organization [facility] Address [address] [place] [address] Care Team Providers Care Card Room Manager Name Role Phone Aaron Duggan MD Unavailable [phone] Jose Luis Lin MD Primary Care Provider Encounter Details Date Type Department Care Team (Late Contact Info) Description 12/07/2017 Abstract [facility], [address] [phone] Ekaterina Sánchez MA Social History Tobacco Use Types Packs/Day Years Used Date Smoking Tobacco: Former Cigarettes Q uit: 05/1985 Smokeless Tobacco: Never Alcohol Use Standard Drinks/Week Comments No 0 (1 standard drink = 0.6 oz pur e alcohol) Comments Unknown Sex and Gender Information Value Date Recorded Sex Assigned at Female 09/10/2024 1:02 PM LAND TITLE EXAMINER Legal Sex Female 9:18 PM CDT Gender Identity Not on file Sexual Orientation Not on file Occupation Industry Job Start Date Job End Date Not on file Not on file Not on file Not on file documented as of this encounter Plan of Treatment Upcoming Encounters Date Type Department Care Team (Late Contact Info) Description 09/15/2025 11:00 AM LAND TITLE EXAMINER Office Visit [facility], [address] [phone] Aaron Duggan MD [facility]. [address] [id number] documented as of this encounter Procedures Procedure Name Priority Date/Time Associated Diagnosis Comments CBC (OUTSIDE LAB) Routine 10/23/2017 COMPREHENSIVE METABOLIC PANEL Routine 10/23/2017 THYROID STIM HORMONE TSH Routine 10/23/2017 documented in this encounter Results * CBC (OUTSIDE LAB) (10/23/2017) WBC 5.9 HGB 9.4 HCT 32.1 PLT 262 10/23/2017 us Doc [facility] Abstract LAB-OUTSIDE/ABSTRACTED Final Result * THYROID STIM HORMONE, TSH (10/23/2017) TSH 2.89 10/23/2017 us Doc [facility] Abstract LABORATORY Final Result * (ABNORMAL) COMPREHENSIVE METABOLIC PANEL (10/23/2017) SODIUM S/P/B 137 POTASSIUM S/P/B 4.0 CO2 27 CHLORIDE S/P/B 108 GLUCOSE 134 mg/dL CALCIUM S/P/B 8.5 BUN 11 CREATININE S/P/B 0.78 0.5 - 1.0 EGFR AFR. AMER. 97(A) <=90 EGFR NON-AFR. AMER. 84 <=90 ALKALINE PHOSPHATASE S/P/B 100 ALT 34 AST 29 BILIRUBIN TOTAL S/P/B 0.6 ALBUMIN S/P/B 3.6 3.5 - 5.0 TOTAL PROTEIN S/P/B 5.7 GLOBULIN 2.1 10/23/2017 us Doc [facility] Abstract LABORATORY Final Result documented in this encounter Visit Diagnoses Not on filedocumented in this encounter Care Teams Card Room Manager Relationship Specialty Start Date End Date Jose Luis Lin MD [address] [address] PCP - General FAMILY PRACTICE 08/27/17 Aaron Duggan MD [facility]. [address] [address] Swati Canoe Builder CARDIOVASCULAR DISEASE 01/26/16 documented as of this encounter
--- OUTSIDE RECORDS SUMMARY | 2025-04-06 12:18 | XMS_ITS | Clinical Summary ---
Author Organization [facility] Address [address] [place] [address] Phone Care Team Providers Care Counter Professional Name Role Phone Drew Weeks MD Primary Care Provider [phone] Allergies Active Allergy Reactions Criticality Noted Date Comments Cinnamon Other (See Comments) High 11/17/2010 Digestive problems,tongue and throat numbness Lidocaine-Prilocaine Other (See Comments) Low 12/19 Some BP med Vicryl suture/ makes a pocket of fluid Quinapril Other (See Comments) High 10/24/2010 Depression-tearfulne ss/crying Makes her want to cry Unclassified Drug Other (See Comments) 12/20/19 11 Some BP med Vicryl suture/ makes a pocket of fluid Medications traMADol (ULTRAM) 50 mg tablet Take 100 mg by mouth 1 time daily as needed . 5 Active LYRICA 150 mg Capsule 8 Active nystatin-triamcin olone (MYCOLOG-II) 100,000-0.1 unit/g-% Cream Apply to affected area 2 times daily. 30 Gram 1 Active alendronate (FOSAMAX) 70 mg tablet Take 70 mg by mouth every 7 days. 4 Active ERGOCALCIFEROL, VITAMIN D2, ORAL Take 2,000 Units by mouth. Active CALCIUM CARBONATE ORAL Take 1,000 mg by mouth. Active folic acid (FOLVITE) 1 mg tablet Take 1 mg by mouth. 4 Active levothyroxine 50 mcg tablet Take 50 mcg by mouth. Active sbnsmj-jrgkbkng-c mylase (Creon) 24,000-76,000-120 ,000 unit capsule Take 1 Capsule by mouth. 3 Active mv-min/folic/vit K/lycop/coQ10 (DAILY MULTIVITAMIN ORAL) Take by mouth. Active Active Problems Patient Care Coordination No te Formatting of this note migh t be different from the original. Primary Care: Drew Weeks MD Referring Provider: Drew Weeks MD [address] [place] [address] Other: Dr Hilda Paul MD Problem Noted Date Diagnosed Date Breast pain 07/26/2018 Encounters Date Type Department Care Team Description 03/11/2025 External Device Data [facility] ABSTRACTION Provider, Abstract 03/11/2025 External Device Data [facility] ABSTRACTION Provider, Abstract 03/11/2025 External Device Data [facility] ABSTRACTION Provider, Abstract 03/10/2025 External Device Data [facility] ABSTRACTION Provider, Abstract 02/11/2025 External Device Data [facility] ABSTRACTION Provider, Abstract 02/10/2025 External Device Data ST[facility] ABSTRACTION Provider, Abstract 01/20/2025 External Device Data [facility] ABSTRACTION Provider, Abstract 01/15/2025 External Device Data ST[facility] ABSTRACTION Provider, Abstract 01/15/2025 External Device Data ST[facility] ABSTRACTION Provider, Abstract 01/15/2025 External Device Data STL ABSTRACTION Provider, Abstract 01/14/2025 External Device Data STL ABSTRACTION Provider, Abstract 01/13/2025 1:15 PM CDT Office Visit [facility]ne[facility] [address] [place] [address] [place] [address] Randolph Stephens MD Well woman exam with routine gynecological exam (Primary Dx) from Last 3 Months Immunizations Immunization Administration Dates Next Due Influenza Seasonal Unspecifi ed Formulation IM 05/27/2014,06/27/2012,05/27/2011 Family History Medical History Relation Name Comments Heart Disease Brother Heart Disease Father Breast Cancer Maternal Aunt 1 Colon Cancer Maternal Aunt 1 Colon Cancer Maternal Aunt 2 Heart Disease Maternal Grandfather Breast Cancer Maternal Grandmother Cancer Maternal Grandmother stomach Colon Cancer Maternal Uncle 1 Colon Cancer Maternal Uncle 2 Colon Cancer Mother Heart Disease Paternal Grandfather Cancer Paternal Grandmother kidney Heart Disease Paternal Uncle Relation Name Status Comments Brother Father Maternal Aunt 1 Maternal Aunt 2 Maternal Grandfather Maternal Grandmother Maternal Uncle 1 Maternal Uncle 2 Mother Paternal Grandfather Paternal Grandmother Paternal Uncle Social History Tobacco Use Types Packs/Day Years Used Date Smoking Tobacco: Former Smokeless Tobacco: Never Alcohol Use Standard Drinks/Week Comments No 0 (1 standard drink = 0.6 oz pur e alcohol) Comments No Sex and Gender Information Value Date Recorded Sex Assigned at Not on file Legal Sex Female 6:06 AM POCKET SECRETARY ASSEMBLER Gender Identity Not on file Sexual Orientation Not on file 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 Not on file Not on file Not on file Last Filed Vital Signs Vital Sign Reading Time Taken Comments Blood Pressure 140/80 01/13/2025 1:31 PM CDT Pulse 83 01/13/2025 1:26 PM CDT Temperature 37.3 C (99.1 F) 01/13/2025 1:26 PM CDT Respiratory Rate - - Oxygen Saturation 98% 01/13/2025 1:26 PM CDT Inhaled Oxygen Concentration - - Weight 70.3 kg (155 lb) 01/13/2025 1:26 PM CDT Height 162.6 cm (5' 4) 07/12/2021 2:43 PM POCKET SECRETARY ASSEMBLER Body Mass Index 26.61 07/12/2021 2:43 PM POCKET SECRETARY ASSEMBLER Plan of Treatment Health Maintenance Due Date Last Done Comments FIT-DNA Q 3 years 01/31/1997 FIT/FOBT Q 1 year 01/31/1997 Flex Sig/CT Colonography Q 5 years 01/31/1997 RSV VACCINE (60+ or ) (1 - Risk 60-74 years 1-dose series) 2012 COVID-19 Vaccine (2 - 2023-2 5 season) 2024 04/09/2021 BREAST CANCER SCREENING 02/28/2025 02/29/20 24, 02/29/2024, 04/28/2022, Additional history exists INFLUENZA VACCINE (#1) 2025 9, 05/16/2018, 04/27/2017, Additional history exists COLORECTAL SCREENING 08/06/2027 08/06/2017, 08/06/2017, 03/27/2011 (Previously completed) Colorectal Cancer Screening 08/06/2027 OSTEOPOROSIS SCREENING 03/13/2028 3, 03/13/2023, 05/26/2021, Additional history exists DTAP/TDAP/TD VACCINES (3 - T d or Tdap) 12/04/2028 12/04/2018, 11/08/2007 PNEUMOCOCCAL VACCINE 50+ YEARS Completed 0 05/16/2018, 05/27/2017 (Previously completed), 04/27/2017, Additional history exists ZOSTER VACCINE Completed 01/23/2019, 09/28, 07/15/2015 Procedures Procedure Name Priority Date/Time Associated Diagnosis Comments MAMMO SCREENING BILAT Routine 03/16/2021 XR DEXA BONE DENSITY AXIAL 1 OR MORE SITES Routine 05/18/2016 Screening for osteoporosis from Last 3 Months or Most Recently Relevant to Health Maintenance Results * MAMMO SCREENING BILAT (03/16/2021) Anatomical Region Laterality Modality Breast Bilateral Mammography us Randolph Stephens MD MAMMO ORDERABLES Edited Result - Final * XR DEXA BONE DENSITY AXIAL 1 OR MORE SITES (05/18/2016) Anatomical Region Laterality Modality Other us Randolph Stephens MD DIAGNOSTIC IMAGING ORDERABLES Ed ited Result - Final from Last 3 Months or Most Recently Relevant to Health Maintenance Insurance Care Teams Counter Professional Relationship Specialty Start Date End Date Malegah, Peter, MD [address] [place] [address] PCP - General 03/22/18
--- OUTSIDE RECORDS SUMMARY | 2025-04-06 12:18 | XMS_ITS | Encounter Summary ---
Author Organization [facility] Address [address] [place] [address] Care Team Providers Care Environmental Services Floor Tech Name Role Phone Aaron Duggan MD Unavailable [phone] Jose Luis Lin MD Primary Care Provider Encounter Details Date Type Department Care Team (Late Contact Info) Description 11/28/2022 Abstract [facility] [address] [address] Ekaterina Sánchez MA Social History Tobacco Use Types Packs/Day Years Used Date Smoking Tobacco: Former Cigarettes Q uit: 05/1985 Smokeless Tobacco: Never Alcohol Use Standard Drinks/Week Comments No 0 (1 standard drink = 0.6 oz pur e alcohol) Comments Unknown Sex and Gender Information Value Date Recorded Sex Assigned at Female 09/10/2024 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 [place] [address] documented as of this encounter Procedures Procedure Name Priority Date/Time Associated Diagnosis Comments COMPREHENSIVE METABOLIC PANEL Routine 11/18/2022 CBC, MANUAL DIFF Routine 11/18/2022 MAGNESIUM Routine 11/18/2022 NT-PRO BNP VIST[facility] Routine 11/05/2022 documented in this encounter Results * COMPREHENSIVE METABOLIC PANEL (11/18/2022) SODIUM S/P/B 134 GLUCOSE 84 mg/dL AST 40 BUN 10 CREATININE S/P/B 0.50 0.5 - 1.0 CALCIUM S/P/B 7.4 POTASSIUM S/P/B 4.8 CHLORIDE S/P/B 105 ALT 20 GFR ESTIMATE >60 us Default History Genericprovider LABORATORY Final Result * CBC, MANUAL DIFF (11/18/2022) WBC 6.9 HGB 8.9 HCT 28.1 PLT 143 us Default History Genericprovider LABORATORY Final Result * MAGNESIUM (11/18/2022) MAGNESIUM 2.0 us Default History Genericprovider LABORATORY Final Result * Nt-Pro Bnp [place] (11/05/2022) PRO-BRAIN NATRIURETIC PEPTIDE 560 11/05/2022 us Default History Genericprovider GENERAL SUPPLY & EQUIPMENT ORDERABLES Final Result documented in this encounter Visit Diagnoses Not on filedocumented in this encounter Care Teams Environmental Services Floor Tech Relationship Specialty Start Date End Date Jose Luis Lin MD [address] [address] PCP - General FAMILY PRACTICE 08/27/17 Aaron Duggan MD [address] [address] Swati Airplane Dispatcher CARDIOVASCULAR DISEASE 01/26/16 documented as of this encounter
--- OUTSIDE RECORDS SUMMARY | 2025-04-06 12:18 | XMS_ITS ---
Author Name Auto Generated, Auto Generated Organization [facility] ices Address [address] [place] [address] Phone [phone] Care Team Providers Care Manager Business Process Name Role Phone Foster Resendiz Unavailable Dayan Tolbert Unavailable [phone] Moi Lopez Unavailable Functional Status No Results Mental Status No [...]
--- OUTSIDE RECORDS SUMMARY | 2025-04-06 12:18 | XMS_ITS | Clinical Summary ---
Author Organization [facility] Address [address] [place] [id number] Care Team Providers Care Hair Dryer Name Role Phone Olman Lopez MD Unavailable [phone] Jose Luis Lin MD Primary Care Provider Jolanta Varela Unavailable [phone] Jemal Wilson MD Unavailable [phone] Gui Gallardo MD Unavailable + Allergies Active Allergy Reactions Criticality Noted Date Comments Sree Inhibitors Mental status changes Low 11/08/2017 Causes depression Cinnamon Anaphylaxis High Milk Stomach upset Low 07/11/2022 Quinapril Mental status changes Low Causes depression Shrimp Stomach upset Low 07/11/2022 Sutures Other (See comments) Low 09/05/2023 Deep Vicryl sutures-causes pockets of fluid to develop Acetaminophen Other (See comments) Low 09/05/2023 Cannot take d/t liver cirrhosis Medications LYRICA 150 mg capsuleIndications :shingles Take 1 capsule (150 mg total) by mouth 2 (two) times a day 1 8 Active ERGOCALCIFEROL, VITAMIN D2, ORALIndications:he alth Take 2,000 Units by mouth paper bag making machinist before breakfast Active levothyroxine (SYNTHROID) 50 mcg tabletIndications: hypothyroidism Take 1 tablet (50 mcg total) by mouth paper bag making machinist before breakfast Active Gas Relief Extra Strength 125 mg chewable tablet Take 2 tablets (250 mg total) by mouth as needed for flatulence 3 Active calcium carbonate (CALCIUM 500 ORAL)Indications:h ealth Take 1,000 mg by mouth paper bag making machinist before breakfast Active Creon 24,000-76,000 -120,000 unit capsuleIndications :exocrine pancreatic insufficiency 1 capsule 3 (three) times a day with meals 3 Active alendronate (FOSAMAX) 70 mg tabletIndications: Post-Menopausal Osteoporosis Take 1 tablet (70 mg total) by mouth every 7 days Take on Sunday 4 Active folic acid (FOLVITE) 1 mg tabletIndications: health Take 1 tablet (1 mg total) by mouth paper bag making machinist before breakfast 4 Active traMADoL (ULTRAM) 50 mg tablet Take 1 tablet (50 mg total) by mouth every 6 (six) hours as needed for pain 20 tablet 4 Active ondansetron ODT (ZOFRAN-ODT) 8 mg disintegrating tablet PLEASE SEE ATTACHED FOR DETAILED DIRECTIONS 4 Active furosemide (LASIX) 40 mg tablet Take 1 tablet (40 mg total) by mouth daily 90 tablet 3 5 026 Active Active Problems Problem Noted Date Diagnosed Date Somnolence 01/23/2025 Cirrhosis of liver with ascites 08/14/2024 History of appendicitis 07/30/2024 Fracture, humerus, head, lef t, with routine healing, subsequent encounter 06/19/2024 Assessment & Plan (06/19/2024 11:09 AM CDT): Patient has a minimally displaced three part humeral head and neck fracture. If the alignment can be maintained this could be treated non operatively. A better shoulder immobilizer was provided in lieu of the sling she was wearing. Would encourage hand pumps and avoid any tight jewelry on her hand due to dependent edema that is likely to develop. She will be more comfortable sleeping upright in a chair for prompt upright. She has returned for follow-up films in 1-2 weeks Knee mass, left 03/24/2024 Mass of left knee 03/20/2024 Assessment & Plan (03/20/2024 11:44 AM CDT): Patient has two firm masses in the left knee that appeared to be imbedded or attached to the patella tendon. These may be suture knots, calcification, retracted tendon fibers or other more aggressive lesions. They are quite bothersome and there was very little padding between the skin and these masses as such the patient would like to have them removed. This will allow for biopsy if it is not a suture material to better delineate the tissue. There is risks of infection, incisional numbness, hypersensitive scar, blood loss blood clots medical and anesthetic risks including is willing to proceed. She does have some cirrhosis and we will check a CMP level. Arthritis of left knee 03/20/2024 Assessment & Plan (03/20/2024 11:47 AM CDT): The patient does have fairly advanced arthritis of the left knee. She may be facing knee replacement surgery in the future. After reviewing the treatment options however she would like to have a cortisone injection at the time of her knee surgery to help alleviate any symptoms associated with her arthritis. There is risks of injection site irritation infection with any invasive procedure albeit small with an injection Trigger middle finger of right hand 09/04/2023 Acquired trigger finger of right ring finger 04/2024 H/O abdominal abscess 01/19/2023 Localized edema 11/05/2022 Insomnia, unspecified 08/27/2022 Unspecified osteoarthritis, unspecified site 08/2022 Vitamin D deficiency, unspecified 08/27/2022 Injury of left knee 07/24/2022 Unspecified fracture of unsp ecified patella, initial encounter for closed fracture 07/10/2022 Assessment & Plan (07/10/2022 3:43 PM LAB SUPPORT SERVICE TECH): Patient has a displaced comminuted angulated fracture of the patella. This is likely to impede her range of motion of the knee and may make her susceptible to posttraumatic arthritis. Patient will have the best healing and likely improvement in her range of motion with open reduction internal fixation to realign the patella and compress the bone surfaces. This is generally performed as an outpatient basis. Patient was advised risks of infection, wound dehiscence seroma hematoma, incisional numbness, hypersensitive scar, blood loss blood clots, loss of fixation malunion nonunion medical and anesthetic risks including is willing to proceed. Encounter for screening colonoscopy 07/03/2022 Overview (07/03/2022): Added automatically from request for surgery [id number] Sacroiliitis, not elsewhere classified Assessment & Plan (04/12/2021 4:24 PM CDT): Patient most likely strained the sacroiliac ligaments of the right side. She has had some chronic pains in these areas that may be related to her limb length inequality. A heel lift was issued to counter the limb length inequality. She may find stretching exercises and warm soaks helpful. It is likely take another 3-4 weeks before she is pain free. 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 This may increase the stress of the sacroiliac joint and a heel lift was issued to help counter the difference. Memory loss 12/30/2018 Other iron deficiency anemias 01/11/2018 Encounters Date Type Department Care Team Description 04/01/2025 10:45 AM CDT - 04/01/2025 11:59 PM CDT Hospital Encounter [facility] [address] [place] [address] Screening mammogram, encounter for Discharge Disposition: Discharge to home or self care 03/05/2025 Orders Only [facility] Division of Nephrology [address] [place] [phone] Chloe Huerta MD 02/24/2025 11:17 AM CDT - 02/24/2025 11:59 PM CDT Hospital Encounter [facility] [address] [place] [address] Edema of left lower extremity Discharge Disposition: Discharge to home or self care 02/09/2025 6:40 PM CDT Lab [facility] ([facility]) [address] [place] [id number] Stage 3b chronic kidney disease (HCC); 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); Proteinuria, unspecified type; Renal osteodystrophy 02/09/2025 3:20 PM CDT Office Visit [facility] Nephrology [address] [facility] Advanced Medicine 5th [place] [address] [place] [phone] Tor Robin MD 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) (Primary Dx); Stage 3b chronic kidney disease (HCC); Proteinuria, unspecified type; Renal osteodystrophy; Edema of left lower extremity 01/11/2025 9:59 PM CDT - 01/11/2025 11:59 PM CDT Hospital Encounter [facility] [address] [place] [address] Somnolence; Hypersomnia, unspecified Discharge Disposition: Discharge to home or self care from Last 3 Months Immunizations Immunization Administration Dates Next Due Influenza, Trivalent, High D ose, Split, Preservative Free, Intramuscular 05/16/2019,05/16/2018,04/27/2017 Influenza, Trivalent, IM (MDV) 05/27/2014,2011,05/27/2011 Influenza, Unspecified 11/08/2017 Pneumococcal Conjugate PCV 13 04/27/2017, 015 Pneumococcal Polysaccharide PPV23 05/16/2018,02/2006 Tdap 12/04/2018,11/08/2007 ZOSTER LIVE 07/15/2015 ZOSTER Recombinant 01/23/2019,10/23/2018 Surgical History Surgery Date Site/Laterality Comments TOTAL VAGINAL HYSTERECTOMY 08/27/1998 - 08/26/1999 COLONOSCOPY 08/27/2022 - 08/26/2023 CHOLECYSTECTOMY 08/27/2003 - 08/26/2004 HEEL SPUR SURGERY 08/27/1999 - 08/26/2000 Bilateral 2017 PANNICULECTOMY 08/27/2007 - 08/26/2008 GASTRIC BYPASS 08/27/2005 - 08/26/2006 lost 130lb pounds LITHOTRIPSY 08/27/2008 - 08/26/2009 HAND TENDON SURGERY 08/27/2016 - 08/26/2017 Left DUPUYTREN CONTRACTURE RELEASE 08/27/2009 - 08/26/2010 Right CATARACT EXTRACTION 08/27/2011 - 08/26/2012 Bilateral & 2013 ESOPHAGOGASTRODUODENOSCOPY 08/27/2004 - 08/26/2005 mass removed PARS PLANA VITRECTOMY W/ REP AIR OF MACULAR HOLE 08/27/2020 - 08/26/2021 Right KNEE SURGERY 07/14/2022 Left Patella ORIF s/p fall-hardware remains US GUIDED PARACENTESIS ABDOMEN 04/12/2023 N/A KNEE SURGERY 08/27/2013 - 08/26/2014 Left meniscus BACK SURGERY x2, lumbar-no hardware/ EYE SURGERY 08/27/2020 - 08/26/2021 Right macular repair Medical History Medical History Date Comments Hx Other Medical Insomnia; Comme nts: AMP 08/25/2014 - Anemia Closed displaced comminuted fracture of left patella 06/2022 repaired Type 2 diabetes mellitus h/o, no ne since 130lb weight loss Liver cirrhosis 10/2022 with h/o ascites , r/t appendix abscess/fluid Shingles 2017 h/o-nerve pain r emains back/abdomen/waist Hypothyroidism Arthritis Osteoporosis Appendix abscess 10/2022 s/p drain/peroc intesis-resolved PONV (postoperative nausea and vomiting) short spells of nausea Vertigo History of hypertension GERD (gastroesophageal reflux disease) Knee mass, left Migraines Cirrhosis of liver (HCC) Family History Medical History Relation Name Comments Coronary artery disease Father Fami ly history of coronary artery disease - (Added by TW Conv) Coronary artery disease Mother Fami ly history of coronary artery disease - (Added by TW Conv) Breast cancer Mother's Sister Malig Hyperthermia Neg Hx Pseudochol deficiency Neg Hx Relation Name Status Comments Father Mother Mother's Sister Social History Tobacco Use Types Packs/Day Years Used Date Smoking Tobacco: Former Cigarettes 2 07 27 973 - 1984 Smokeless Tobacco: Never Tobacco Cessation:Counseling Given: Not Answered Alcohol Use Standard Drinks/Week Comments No 0 [...] on file Legal Sex Female 1:10 AM LAB SUPPORT SERVICE TECH Gender Identity Not on file Sexual Orientation Not on file Obstetrics History Para Term AB IAB SAB Ectopic Multiple Livin g Live Births 0 0 0 0 0 0 0 0 0 0 0 Last Filed Vital Signs Vital Sign Reading Time Taken Comments Blood Pressure 113/69 02/09/2025 3:16 PM CDT Pulse 73 02/09/2025 3:16 PM CDT Temperature 37 C (98.6 F) 02/09/2025 3:16 PM CDT Respiratory Rate 20 02/09/2025 3:16 PM CDT Oxygen Saturation 96% 02/09/2025 3:16 PM CDT Inhaled Oxygen Concentration - - Weight 71.2 kg (157 lb) 04/01/2025 10:51 AM CDT Height 160 cm (5' 3) 04/01/2025 10:51 AM CDT Body Mass Index 27.81 04/01/2025 10:51 AM CDT Plan of Treatment Health Maintenance Due Date Last Done Comments Depression Screening 1950 Well Visit 65+ 01/31/2017 Covid-19 Vaccine (2023-2 5 season) 2024 04/09/2021 Osteoporosis Screening-Bone Density Scan 03/13/2025 03/13/2023, 05/18/2016, 05/18/2016, Additional history exists Influenza Vaccine (#1) 2025 , 05/16/2019, 05/16/2018, Additional history exists Fall Risk Assessment 09/08/2025 09/08/2024 Breast Cancer Screening-Mammogram 04/01/2026 04/01/2025, 02/29/2024, 04/28/2022, Additional history exists Colon Cancer Screening-Colonoscopy 08/06/2027 08/06/2017 DTaP/Tdap/Td Vaccine (3 - Td or Tdap) 12/04/2028 12/04/2018, 11/08/2007 Colon Cancer Screening-CT Colonography Discontinued 08/06/2017 Colon Cancer Screening-DNA Stool Discontinued 08/06/20 17 Colon Cancer Screening-FIT Discontinued 08/06/2017 Colon Cancer Screening-Sigmoidoscopy Discontinued 08/06/2017 Pneumococcal vaccine 65+ Completed 018, 04/27/2017, 07/15/2015, Additional history exists Zoster Vaccine Completed 01/23/2019, 09/28, 07/15/2015 Hepatitis B Screening Completed 05/15/2023 Hepatitis C Screening Completed 05/15/2023 Medical Devices Implanted Type Area Hog Pusher Device Identifier Shelf Expiration Date Model / Serial / Lot [employer] 4mm 28mm Cannulated Blunt Tip Low Profile Screw Bone Ar-5051-28 - [id number] Implanted:Qty: 1 on 07/14/2022 by Jj Moses MD at [facility] Left: Patella [employer] AR-5051-28 / / [employer] 4mm 30mm Cannulated Blunt Tip Low Profile Screw Bone Ar-5051-30 - [id number] Implanted:Qty: 1 on 07/14/2022 by Jj Moses MD at [facility] Left: Patella [employer] AR-5051-30 / / Procedures Procedure Name Priority Date/Time Associated Diagnosis Comments SCREENING MAMMOGRAM BILATERAL W JOSELO Schedule Routine, Read Routine (OP Routine) 04/01/2025 11:02 AM CDT Screening mammogram, encounter for US VEIN DUPLEX LOWER EXTREMITY LEFT LIMITED Schedule Routine, Read Routine (OP Routine) 02/24/2025 11:43 AM CDT Edema of left lower extremity EGFR Routine 02/09/2025 4:30 PM CDT Stage 3b chronic kidney disease (HCC) 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) Proteinuria, unspecified type Renal osteodystrophy DIFFERENTIAL AUTO Routine 02/09/2025 4:3 0 PM CDT Stage 3b chronic kidney disease (HCC) 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) Proteinuria, unspecified type Renal osteodystrophy ALBUMIN CREATININE RATIO, URINE Routine 02/09/2025 4:30 PM CDT Stage 3b chronic kidney disease (HCC) 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) Proteinuria, unspecified type Renal osteodystrophy PROTEIN / CREATININE RATIO, URINE, RANDOM Routine 02/09/2025 4:30 PM CDT Stage 3b chronic kidney disease (HCC) 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) Proteinuria, unspecified type Renal osteodystrophy RENAL FUNCTION PANEL Routine 02/09/2025 4:30 PM CDT Stage 3b chronic kidney disease (HCC) 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) Proteinuria, unspecified type Renal osteodystrophy CYSTATIN C Routine 02/09/2025 4:30 PM CDT Stage 3b chronic kidney disease (HCC) 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) Proteinuria, unspecified type Renal osteodystrophy CBC WITH AUTO DIFFERENTIAL Routine 02/09/2025 4:30 PM CDT Stage 3b chronic kidney disease (HCC) 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) Proteinuria, unspecified type Renal osteodystrophy FERRITIN Routine 02/09/2025 4:30 PM CDT Stage 3b chronic kidney disease (HCC) 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) Proteinuria, unspecified type Renal osteodystrophy IRON PROFILE W/ IBC Routine 02/09/2025 4 :30 PM CDT Stage 3b chronic kidney disease (HCC) 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) Proteinuria, unspecified type Renal osteodystrophy PSG (SIMPLE) Routine 01/11/2025 Somnolence Hypersomnia, unspecified HEPATITIS C ANTIBODY Routine 05/15/2023 12:00 PM CDT Cirrhosis of liver with ascites, unspecified hepatic cirrhosis type (HCC) DEXA AXIAL SKELETON BONE DENSITY 1 OR MORE SITES Schedule Routine, Read Routine (OP Routine) 03/13/2023 1:00 PM CDT Asymptomatic menopausal state COLONOSCOPY REPORT 08/06/2017 from Last 3 Months or Most Recently Relevant to Health Maintenance Results * Screening Mammogram Bilateral W Joselo (04/01/2025 11:02 AM CDT) Anatomical Region Laterality Modality Breast Bilateral Mammography Impressions 04/01/2025 11:04 AM CDT Bilateral No evidence of malignancy in either breast. OVERALL BI-RADS FINAL ASSESSMENT: 1 - Negative RECOMMENDATION: Recommend bilateral annual screening mammography. Narrative 04/01/2025 11:04 AM CDT EXAMINATION: Screening Mammogram Bilateral W Joselo: 04/01/2025 COMPARISON: Relevant prior studies available at the time of interpretation were reviewed, including the most recent mammogram on: 02/29/2024. TECHNIQUE: Mammography was performed with 2D and 3D digital breast tomosynthesis (DBT) images. CAD was utilized. BREAST PARENCHYMAL COMPOSITION: There are scattered areas of fibroglandular density. FINDINGS: Bilateral There is no suspicious mass, calcification, or architectural distortion in either breast.There are benign calcifications in both breasts. us Self Screening Mammogram IMG MAMMO PROCEDURES Fi nal Result * US VEIN DUPLEX LOWER EXTREMITY LEFT LIMITED, UNILATERAL (02/24/2025 11:43 AM CDT) Anatomical Region Laterality Modality Vascular Left Ultrasound 02/24/2025 12:0 2 PM CDT Impressions 02/24/2025 12:02 PM CDT 1. No evidence of deep vein thrombosis of the left lower extremity. Electronically signed by: Victoriano Clinton M.D. Narrative 02/24/2025 12:02 PM CDT EXAMINATION: LEFT LOWER EXTREMITY VENOUS DOPPLER HISTORY: Left leg swelling. COMPARISON: None TECHNIQUE: Ultrasound examination was performed from the groin to the ankle using nolasco scale, duplex color flow, and spectral analysis. The proximal saphenous, common femoral, superficial femoral, popliteal, posterior tibial and peroneal veins were evaluated. Both augmentation and compression maneuvers were performed. FINDINGS: The veins of the left leg are normally compressible and augment normally. Normal respiratory variation is identified. Procedure Note Victoriano Clinton MD - 02/24/2025 EXAMINATION: LEFT LOWER EXTREMITY VENOUS DOPPLER HISTORY: Left leg swelling. COMPARISON: None TECHNIQUE: Ultrasound examination was performed from the groin to the ankle using nolasco scale, duplex color flow, and spectral analysis. The proximal saphenous, common femoral, superficial femoral, popliteal, posterior tibial and peroneal veins were evaluated. Both augmentation and compression maneuvers were performed. FINDINGS: The veins of the left leg are normally compressible and augment normally. Normal respiratory variation is identified. IMPRESSION: 1. No evidence of deep vein thrombosis of the left lower extremity. Electronically signed by: Victoriano Clinton M.D. Jorge L King MD IMG US PROCEDURES Final Result * (ABNORMAL) eGFR (02/09/2025 4:30 PM CDT) eGFR 34(L) >=60 mL/min/1. 73 m2 Comment: Interpretive Data Reference Interval Normal >/= 90 mL/min/1.73m2 Mildly decreased* 60 - 89 mL/min/1.73m2 Mildly to moderately decreased 45 - 59 mL/min/1.73m2 Moderately to severely decreased 30 - 44 mL/min/1.73m2 Severely decreased 15 - 29 mL/min/1.73m2 Kidney Failure < 15 mL/min/1.73m2 *Relative to young adult level Estimated glomerular filtration rate is determined by the 2020 CKD-EPI equation recommended by the National Kidney Foundation (A Unifying Approach to GFR Estimation: Recommendations of the NKF-ASK Task Force on Reassessing the Inclusion of Race in Diagnosing Kidney Disease, JASN 2020). The CKD-EPI equation should not be used for patients with unstable renal function and has not been validated in children and those over 70. Current interpretive data was last reviewed 2021. Blood 02/09/2025 4:30 PM CDT 02/09/2025 5:26 PM CDT us Tor Bernard MD LAB BLOOD ORDERABLE S Final Result [facility] Department [place] [address] * Differential, auto (02/09/2025 4:30 PM CDT) Neutrophil abs 4.22 1.50 - 6.50 K/cumm Imm gran abs 0.01 0.00 - 0.10 K/cumm [facility] Lymphocyte abs 1.18 0.80 - 3.30 K/cumm [facility] Monocyte abs 0.28 0.20 - 0.80 K/[facility]umm [facility] Eosinophil abs 0.14 0.00 - 0.50 K/cumm [facility] Basophil abs 0.08 0.00 - 0.10 K/cumm [facility] Neutrophil pct 71.3 % [facility] Comment: Interpretive Data Percent cell count reference ranges are not reported, since discordance with absolute values may lead to misinterpretation of CBC data. Current Interpretive Data was last revised on 2017. Imm gran pct 0.2 % [facility] Comment: Interpretive Data Percent cell count reference ranges are not reported, since discordance with absolute values may lead to misinterpretation of CBC data. Current Interpretive Data was last revised on 2017. Lymphocyte pct 20.0 % [facility] Comment: Interpretive Data Percent cell count reference ranges are not reported, since discordance with absolute values may lead to misinterpretation of CBC data. Current Interpretive Data was last revised on 2017. Monocyte pct 4.7 % [facility] Comment: Interpretive Data Percent cell count reference ranges are not reported, since discordance with absolute values may lead to misinterpretation of CBC data. Current Interpretive Data was last revised on 2017. Eosinophil pct 2.4 % [facility] Comment: Interpretive Data Percent cell count reference ranges are not reported, since discordance with absolute values may lead to misinterpretation of CBC data. Current Interpretive Data was last revised on 2017. Basophil pct 1.4 % [facility] Comment: Interpretive Data Percent cell count reference ranges are not reported, since discordance with absolute values may lead to misinterpretation of CBC data. Current Interpretive Data was last revised on 2017. Blood 02/09/2025 4:30 PM CDT 02/09/2025 5:13 PM CDT Tor Bernard MD LAB BLOOD ORDERABLE S Final Result Performing Organization Address City/[facility]/ZIP Co de Phone Number [facility] Department [place] [address] * (ABNORMAL) Iron profile w/ IBC (02/09/2025 4:30 PM CDT) Pathologist [facility] Iron 71 35 - 145 mcg/dL TIBC 237(L) 250 - 400 mcg/dL [facility] Transferrin saturation 30 20 - 50 % [facility] Blood 02/09/2025 4:30 PM CDT 02/09/2025 5:13 PM CDT Tor Bernard MD LAB BLOOD ORDERABLE S Final Result Performing Organization Address City/[facility] de Phone Number [facility] Department [place] [address] * (ABNORMAL) Cystatin C (02/09/2025 4:30 PM CDT) Cystatin C 1.84(H) 0.60 - 1.20 mg/L Comment: Interpretive Data Cystatin C concentrations vary widely in the first month of life, particularly in pre-term infants. Concentrations gradually diminish to adult levels by 1 year of life. Concentrations tend to rise with diminishing renal function in individuals greater than 60 years of age. Current Interpretive Data was last revised on 2020. Testing performed by: [facility], [facility], [place]., [address] Blood 02/09/2025 4:30 PM CDT 02/09/2025 5:29 PM CDT Tor Bernard MD LAB BLOOD ORDERABLE S Final Result Performing Organization Address [facility]/ZIP Co de Phone Number [facility] [place] [address] * (ABNORMAL) CBC with auto differential (02/09/2025 4:30 PM CDT) [facility] WBC 5.91 3.80 - 9.90 K/cumm Hgb 9.2(L) 11.9 - 15.5 g/dL [facility] Hct 29.1(L) 35.6 - 45.5 % [facility] Plt 183 150 - 400 K/cumm [facility] MPV 12.8(H) 9.1 - 12.3 fL [facility] RBC 3.12(L) 3.90 - 5.20 M/cumm [facility] MCV 93.3 81.3 - 96.4 fL [facility] MCH 29.5 27.1 - 33.3 pg [facility] MCHC 31.6(L) 32.3 - 35.7 g/dL [facility] RDW CV 14.8 11.1 - 14.9 % [facility] RDW SD 50.7(H) 35.7 - 48.1 fL [facility] NRBC abs 0.00 0.00 - 0.01 K/cumm [facility] Blood 02/09/2025 4:30 PM CDT 02/09/2025 5:13 PM CDT Tor Bernard MD LAB BLOOD ORDERABLE S Final Result [facility] [place] [address] * Protein / creatinine ratio, urine, random (02/09/2025 4:30 PM CDT) Pathologist [facility] Protein, ur, quant 6.7 mg/dL Comment: Interpretive Data No reference range established. Current interpretive data was last revised 2019. Creatinine Ur 90.4 mg/dL [facility] Comment: Interpretive Data No reference range established. Current interpretive data was last revised 2019. Protein/creatinin e ratio 73.5 0.0 - 180.0 mg/g CR [facility] Urine 02/09/2025 4:30 PM CDT 02/09/2025 5:13 PM CDT us Tor Bernard MD LAB URINE ORDERABLE S Final Result Performing Organization Address [facility] Co de Phone Number [facility] [address] * Albumin Creatinine Ratio, Urine (02/09/2025 4:30 PM CDT) Albumin Ur <12.0 mg/L Comment: Interpretive Data No reference range established. Current interpretive data was last revised 2019. Creatinine Ur 90.4 mg/dL [facility] Comment: Interpretive Data No reference range established. Current interpretive data was last revised 2019. Albumin Creatinine Ratio, Ur <13 1 - 29 mg/g [facility] Urine 02/09/2025 4:30 PM CDT 02/09/2025 5:13 PM CDT us Tor Bernard MD LAB URINE ORDERABLE S Final Result Performing Organization Address [facility] Co de Phone Number [facility] Department [place] [address] * Ferritin (02/09/2025 4:30 PM CDT) Pathologist [facility] Ferritin 37 13 - 150 ng/mL Blood 02/09/2025 4:30 PM CDT 02/09/2025 5:13 PM CDT Tor Bernard MD LAB BLOOD ORDERABLE S Final Result [facility] Department [place] [address] * (ABNORMAL) Renal function panel (02/09/2025 4:30 PM CDT) Sodium 141 135 - 145 mmol/L Potassium, pl 4.8 3.3 - 4.9 mmol/L [facility] Chloride 111(H) 97 - 110 mmol/L [facility] CO2 26 22 - 32 mmol/L [facility] Anion gap 4 2 - 15 mmol/L [facility] BUN 15 6 - 25 mg/dL [facility] Creatinine 1.60(H) 0.60 - 1.10 mg/dL [facility] Glucose 80 70 - 199 mg/dL [facility] Comment: Interpretive Data Fasting glucose >/= 126 mg/dl is diagnostic for diabetes. Fasting is defined as no caloric intake for at least 8 hours. Fasting glucose between 100 mg/dl to 125 mg/dl is diagnostic of prediabetes. In a patient with classic symptoms of hyperglycemia or hyperglycemic crisis, a random glucose >/= 200 mg/dl is diagnostic for diabetes. In the absence of unequivocal hyperglycemia, results should be confirmed by repeat testing. The classification and Diagnosis of Diabetes Diabetes Care 202; 46: S19-S40. Current interpretive data was last revised 2022. Calcium 8.4(L) 8.5 - 10.3 mg/dL [facility] Phosphorus, pl 2.7 2.3 - 4.5 mg/dL [facility] Albumin 3.2(L) 3.5 - 5.0 g/dL [facility] Blood 02/09/2025 4:30 PM CDT 02/09/2025 5:13 PM CDT us Tor Bernard MD LAB BLOOD ORDERABLE S Final Result [facility] Department [place] [address] * PSG (01/11/2025) Impressions Edi Yu, DO - 01/11/2025 Baseline PSG Report Gunjan Coyne Date of Testin01/11/2025 Date of Interpretation: 01/23/2025 Baseline PSG Testing completed at the [facility]. Patient is a 74 y.o. 158 lbs female at the time of testing. She was studied with a minimum 14 channel polysomnography per AASM guidelines to include EEG sleep stage recording, limb leads, cardiorespiratory monitoring( heart rate, 02 saturation), monitoring for myoclonus, as well as videotaping. BASELINE SLEEP DATA: A total recorded time of 6 hrs 23 mins noted, total sleep time of 5 hrs 43 mins. Patient was studied supine for 1 hrs 56 mins. Off the supine position for 3 hrs 47mins. Sleep latency of 15 minutes was normal, REM latency of 0 hr 45 min was moderately early in onset. Sleep efficiency of 89% was normal. During testing 3 % of monitor time was stage 1 sleep, 20% with stage II, Delta sleep was 46% , REM sleep was 24%. Intrusions into sleep with spontaneous arousals accounted for 22 arousals with an index of 3.8/hr. RESPIRATORY DATA: 1 apneas were scored, 0 were obstructive, 0 were mixed, 1 were central. Trivial intermittent snoring was present. Using a 4% desaturation rule for obstructive hypopnea 3 were scored and Total Apnea-hypopnea index was 0.7/ hr. Using a 3% desaturation rule for obstructive hypopnea 7 were scored. Apnea-hypopnea index was 1.4/hr using 3% rule. Lowest desaturation was 92% with 0 min of desaturation below 88%. EKG: Demonstrated average heart rate 55. Maximum heart rate was 64. Minimum heart rate was 48. Computer averaging was employed. Predominant rhythm appeared to be sinus rhythm. Periodic leg movements were scored with 0 being noted and an arousal index from periodic leg movements of 0/hr present. Diagnostic impressions: This PSG demonstrates No medically significant obstructive sleep apnea with an AHI of 0.7/hr by 4% criteria and No medically significant obstructive sleep apnea with an AHI of 1.4/hr by 3% with desaturation events with no hypoxic burden and Trivial snoring. A diagnosis of obstructive sleep apnea (WALT) is not supported by this test because the AHI is less than 5. If clinical suspicion remains for WALT, consider performing an in-lab polysomnogram, which is more sensitive. 1. Sleep staging documents increased levels of stage 3 sleep. REM sleep was early in onset but did not appear pathologic. No findings in this study to suggest PLMS or WALT. Edi Yu DO [facility] Board Certified in Pulmonary/Sleep Medicine Jose Luis Lin MD SLEEP CENTER ORDERABLE S Final Result * Hepatitis C antibody Blood (05/15/2023 12:00 PM CDT) Hep C Ab Nonreactive Nonreactive Comment:Antibodies to HCV no t detected. Does NOT exclude the possibility of recent exposure to HCV. Current interpretive data was last revised on 22 Blood 05/15/2023 12:0 0 PM CDT 05/15/2023 12:18 PM CDT us Mark Mcdermott MD LAB MICROBIOLOGY - GENERAL ORD ERABLES Final Result [facility] Department [place] [address] * Dexa Axial Skeleton Bone Density 1 or 2 Site (03/13/2023 1:00 PM CDT) Anatomical Region Laterality Modality Body N/A Other 03/13/2023 10:2 9 PM CDT Narrative 03/13/2023 10:30 PM CDT EXAM DESCRIPTION: DEXA AXIAL SKELETON BONE DENSITY 1 OR MORE SITES REASON FOR STUDY: 73 y/o year old F with given history of: asymptomatic menopausal state Osteoporosis screening 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 LEFT HIP: Total BMD is 0.698 g/cm2 T-score is -2.0 Femoral neck BMD is 0.561 g/cm2 T-score is -2.6 FRAX: FRAX not reported due to T-scores of hip, femoral neck and/or spine being at or below -2.5 (Osteoporosis). IMPRESSION: Osteoporosis. REFERENCE: Bone mineral density: Normal (T-score above or = -1.0) Low bone mass (T-score between -1.0 and -2.5) replaces the previously used term osteopenia Osteoporosis (T-score = or below -2.5) Medical evaluation for secondary causes of low bone mineral density may be appropriate. FRAX is a World Health Organization validated fracture risk assessment tool that calculates a person's 10 year probability of a major osteoporosis related fracture and hip fracture. According to the National Osteoporosis Foundation guidelines, postmenopausal women and men age 50 or older with low bone mass and a 10 year probability of a major osteoporosis related fracture = or greater than 20% or a 10 year probability of a hip fracture = or greater than 3% should be considered for treatment. For further information, including treatment recommendations, please refer to the 2019 ISCD Official Positions (http://www.iscd.org) and the NOF's Clinician's Guide to Prevention and Treatment of Osteoporosis (http://www.nof.org/professionals/clinical-guidelines) THIS IS AN ELECTRONICALLY VERIFIED FINAL REPORT 03/13/2023 10:30 PM - Electronically signed by Moi Dorman M.D. 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 LEFT HIP: Total BMD is 0.698 g/cm2 T-score is -2.0 Femoral neck BMD is 0.561 g/cm2 T-score is -2.6 FRAX: FRAX not reported due to T-scores of hip, femoral neck and/or spine beingat or below -2.5 (Osteoporosis). IMPRESSION: Osteoporosis. REFERENCE: Bone mineral density: Normal (T-score above or = -1.0) Low bone mass (T-score between -1.0 and -2.5) replaces thepreviously used term osteopenia Osteoporosis (T-score = or below -2.5) Medical evaluation for secondary causes of low bone mineral density may be appropriate. FRAX is a World Health Organization validated fracture risk assessmenttool that calculates a person's 10 year probability of a major osteoporosisrelated fracture and hip fracture. According to the National OsteoporosisFoundation guidelines, postmenopausal women and men age 50 or older with low bonemass and a 10 year probability of a major osteoporosis related fracture = or greater than 20% or a 10 year probability of a hip fracture = or greaterthan 3% should be considered for treatment. For further information, including treatment recommendations, please referto the 2019 ISCD Official Positions (http://www.iscd.org) and the NOF's Clinician's Guide to Prevention and Treatment of Osteoporosis (http://www.nof.org/professionals/clinical-guidelines) THIS IS AN ELECTRONICALLY VERIFIED FINAL REPORT 03/13/2023 10:30 PM - Electronically signed by Moi Dorman M.D. MF: ALLIE Report ID: [id number] Reading Location: [place] [address] us Jose Luis Lin MD IMG DXA PROCEDURES Fin al Result * COLONOSCOPY REPORT (08/06/2017) Anatomical Region Laterality Modality Other us Provider Scanning GI PROCEDURE ORDERABLES Final Result from Last 3 Months or Most Recently Relevant to Health Maintenance Insurance MEDICARE ADVANTAGE MEDICARE ADVANTAGE MEDICARE ADVANTAGE Care Teams Hair Dryer Relationship Specialty Start Date End Date Jose Luis Lin MD PCP - General 03/04/21 Olman Lopez MD Medical Oncologist/Corner Trimmer Operator Hematology and Oncology 03/21/18 [place] [address] [facility] [address] [place] [address] Physician Skilled Trades Teacher Orthopedic Surgery 07/14/22 Jemal Wilson MD [address] [facility] [id number] [place] [address] Surgeon Colon and Rectal Surgery 12/08/22 Gui Gallardo MD [address] [place] [address] High[facility]er Gastroenterology 12/13/22
--- OUTSIDE RECORDS SUMMARY | 2025-04-06 12:18 | XMS_ITS | Clinical Summary ---
Author Organization [facility] Care Team Providers Care Yard Assistant Name Role Phone Unavailable Primary Care Provider Unavailabl e Social History Tobacco Use Types Packs/Day Years Used Date Smoking Tobacco: Never Assessed Comments Unknown Sex and Gender Information Value Date Recorded Sex Assigned at Not on file Legal Sex Female 7:33 PM CDT Gender Identity Not on file Sexual Orientation Not on file Plan of Treatment Not on file
--- OUTSIDE RECORDS SUMMARY | 2025-04-06 12:18 | XMS_ITS | Clinical Summary ---
Author Organization [facility] Address [facility] [place] [address] Care Team Providers Care Statement Distribution Clerk Name Role Phone Aaron Duggan MD Unavailable [phone] Jose Luis Lin MD Primary Care Provider Allergies Active Allergy Reactions Criticality Noted Date Comments Acetaminophen Other (see comment) Low 09/05/2023 Cannot take d/t liver cirrhosis Cinnamon Other (see comment) 02/04/2016 Throat itch and swell Lidocaine-Prilocaine Other (see comment) 2010 Some BP med Vicryl suture/ makes a pocket of fluid Milk (Cow) GI Upset Low 07/11/2022 Quinapril Hcl Other (see comment) 02/04/2016 Depression Shrimp Extract GI Upset Low 07/11/2022 Suture Material Other (see comment) Low 09/05/2023 Deep Vicryl sutures-causes pockets of fluid to develop Medications pregabalin (LYRICA) 150 MG capsule Take 1 capsule (150 mg total) by mouth as needed. 01/29/2018 Active traMADol 50 MG tablet Take 1 tablet (50 mg total) by mouth as needed. As needed 04/15/2019 Active levothyroxine (SYNTHROID) 50 MCG tablet Take 1 tablet (50 mcg total) by mouth every morning. Active furosemide (LASIX) 40 MG tablet Take 0.5 tablets (20 mg total) by mouth 2 (two) times daily as needed. 02/09/2023 Active Cholecalciferol (D3 2000) 50 MCG (2000 UT) Cap Take 1 tablet by mouth daily. 03/24/2022 Active Calcium Carb-Cholecalci ferol (CALCIUM 500/D) 500-10 MG-MCG Chew Tab Chew 2 chewable tablet by mouth daily. 03/12/2023 Active alendronate (FOSAMAX) 70 MG tablet Take 1 tablet (70 mg total) by mouth once a week. 06/16/2024 Active folic acid (FOLVITE) 1 MG tablet daily. 10/01/2023 Active Pancrelipase, Lpl-Gjge-Sfyf, (CREON) 13653 UNIT capsule 1 capsule (24,000 units of lipase total) daily. 06/19/2023 Active Active Problems Problem Noted Date Diagnosed Date H/O abdominal abscess 01/19/2023 Localized edema 11/05/2022 Vitamin D deficiency, unspecified 08/27/2022 Unspecified osteoarthritis, unspecified site 08/2022 Insomnia, unspecified 08/27/2022 Iron deficiency anemia, unspecified 08/27/2022 Elevated coronary artery calcium score 2 Injury of left knee 07/24/2022 Unspecified fracture of unsp ecified patella, initial encounter for closed fracture 07/10/2022 Overview (10/26/2022): Last Assessment & Plan: Patient has a displaced comminuted angulated fracture [...] anesthetic risks including is willing to proceed. Other iron deficiency anemia 12/07/2017 Abdominal pain, RUQ (right upper quadrant) 12/19 Abnormal weight gain 12/19/2010 DDD (degenerative disc disease), lumbar 12/20/19 11 GERD (gastroesophageal reflux disease) 1 Other specified intestinal malabsorption (HHS/HC C) 12/19/2010 History of nicotine dependence 08/27/1984 Syncope and collapse Essential hypertension Family History Medical History Relation Comments CABG Brother Heart Attack Brother CABG Father Heart Attack Father Valve Disease Father Heart Attack Mother Stent Cardiac Mother Relation Status Comments Brother Father (Age 75) Mother (Age 87) Social History Tobacco Use Types Packs/Day Years Used Date Smoking Tobacco: Former Cigarettes Q uit: 05/1985 Smokeless Tobacco: Never Tobacco Cessation:Counseling Given: Not Answered Alcohol Use Standard Drinks/Week Comments No 0 (1 standard drink = 0.6 oz pur e alcohol) Comments Unknown Sex and Gender Information Value Date Recorded Sex Assigned at Female 09/10/2024 1:02 PM STRAP BUCKLER Legal Sex Female 9:18 PM CDT Gender Identity Not on file Sexual Orientation Not on file Occupation Industry Job Start Date Job End Date Not on file Not on file Not on file Not on file Last Filed Vital Signs Vital Sign Reading Time Taken Comments Blood Pressure 132/66 09/10/2024 1:04 PM STRAP BUCKLER Pulse 64 09/10/2024 1:04 PM STRAP BUCKLER Temperature - - Respiratory Rate 16 06/19/2022 2:30 PM CDT Oxygen Saturation 98% 09/10/2024 1:04 PM STRAP BUCKLER Inhaled Oxygen Concentration - - Weight 68.9 kg (152 lb) 09/10/2024 1:04 PM STRAP BUCKLER Height 165.1 cm (5' 5) 09/10/2024 1:04 PM STRAP BUCKLER Body Mass Index 25.29 09/10/2024 1:04 PM STRAP BUCKLER Plan of Treatment Upcoming Encounters Date Type Department Care Team (Late st Contact Info) Description 09/15/2025 11:00 AM STRAP BUCKLER Office Visit [facility], [address] [address] Aaron Duggan MD [facility]. [address] [address] Health Maintenance Due Date Last Done Comments Colorectal Cancer Screening Colonoscopy (10 Years) 1950 Annual Medicare Wellness Visit 01/31/2017 COVID-19 Vaccine (2023- season) 2024 Mammogram Screening 02/28/2026 02/29/2024, 04/28/2022, 03/16/2021, Additional history exists RSV Immunization or 60+ Years (1 - 1-dose 75+ series) 01/31/2027 DTaP, Tdap and Td Vaccines (3 - Td or Tdap) 12/04/2028 12/04/2018, 11/08/2007 Pneumococcal Vaccine: 50+ Years Completed 05/16/2018, 04/27/2017, 07/15/2015, Additional history exists Zoster Vaccines Completed 01/23/2019, 09/28, 07/15/2015 Dexa Scan (General) Completed 03/13/2023, 03/13/2023, 05/18/2016, Additional history exists Hepatitis C Completed 05/15/2023, 04/27, 05/15/2023, Additional history exists Meningococcal B Vaccine Aged Out No l onger eligible based on patient's age to complete this topic Meningococcal Vaccine Aged Out No garfield aamir eligible based on patient's age to complete this topic RSV Immunizations Under 20 Months Aged Out No longer eligible based on patient's age to complete this topic Insurance Advance Directives * Full Code (Latest Code Status on File) Date Activated Date Inactivated Comments 06/19/2022 12:15 PM 06/19/2022 5:25 PM Care Teams Statement Distribution Clerk Relationship Specialty Start Date End Date Jose Luis Lin MD [facility]. [address] [address] PCP - General FAMILY PRACTICE 08/27/17 Aaron Duggan MD [facility]. [address] [address] [place] Cart Pusher CARDIOVASCULAR DISEASE 01/26/16
== END 2025-04-06 12:15 | disposition home or self-care (01) ==
LOC: ANHIMG 12:15
PROVIDERS: PCP Family Medicine; Visit Provider Family Medicine
DX: M81.0 Age-related osteoporosis without current pathological fracture (principal); M85.89 Other specified disorders of bone density and structure, multiple sites; Z78.0 Asymptomatic menopausal state
CPT/HCPCS: 77080

== ENCOUNTER 2025-05-05 09:56 | Outpatient (CLI) | payer MEDICARE, SELFPAY ==
--- OUTSIDE RECORDS SUMMARY | 2025-05-05 11:17 | XMS_ITS | Encounter Summary ---
Author Organization [facility] Healthcare Address [address] [place] [address] Care Team Providers Care Revenue Liaison Name Role Phone Olman Lopez MD Unavailable [phone] Jose Luis Lin MD Primary Care Provider Jolanta Varela Unavailable [phone] Jemal Wilson MD Unavailable [phone] Gui Gallardo MD Unavailable + Reason for Visit * Auth/Cert (Routine) Specialty Diagnoses / Procedures Referred By Contac t Referred To Contact Diagnoses History of appendicitis History of appendicitis [Z87.19] Procedures VT ANRCT XM SURG REQ ANES GENERAL SPI/EDRL DX VT LAPAROSCOPIC APPENDECTOMY LAPAROSCOPIC APPENDECTOMY EXAM UNDER ANESTHESIA - RECTUM Referral ID Status Reason Start Date Expiration Date Visits Re quested Visits Authorized [id number] 1 1 Encounter Details Date Type Department Care Team (Late st Contact Info) Description 08/14/2024 Hospital Encounter [facility] Operating Room [address] [address] Jemal Wilson MD [id number] [place] [address] Social History Tobacco Use Types Packs/Day Years [...] on file Legal Sex Female 1:10 AM BLOOD BANK BUSINESS MANAGER Gender Identity Not on file Sexual Orientation Not on file documented as of this encounter Last Filed Vital Signs Vital Sign Reading Time Taken Comments Blood Pressure - - Pulse - - Temperature - - Respiratory Rate - - Oxygen Saturation - - Inhaled Oxygen Concentration - - Weight 66.7 kg (147 lb) 07/31/2024 9:00 AM BLOOD BANK BUSINESS MANAGER Height 160 cm (5' 3) 07/31/2024 9:00 AM BLOOD BANK BUSINESS MANAGER Body Mass Index 26.04 07/31/2024 9:00 AM BLOOD BANK BUSINESS MANAGER documented in this encounter Functional Status * AUDIT-C Score Answer Date of Assessment Author 0 09/08/2024 10:57 AM BLOOD BANK BUSINESS MANAGER Karen Hitchcock RN * Question Answer Date [...] Marcella Fonseca NP - 08/08/2024 9:36 AM BLOOD BANK BUSINESS MANAGER [facility] CPAP Clinic Location: [facility] The night before your surgery: * Do [...] tools to help you quit or call 9-956-HUHOQIN ( ). Visit Smokefree.gov for more information. [...] You have started taking any new medications D BANK BUSINESS MANAGER * Perioperative Nursing Note - Edna Gonzalez RN - 07/31/2024 9:16 AM BLOOD BANK BUSINESS MANAGER [facility] Perioperative Nursing Note Telephone Preoperative Evaluation ([facility]) - TELEPHONE ONLY, NO PHYSICAL EXAM Date: [...] 500 ORAL) Take 1,000 mg by mouth drop clipper before breakfast Creon 24,000-76,000 -120,000 unit capsule 1 capsule 3 (three) times a day with meals ERGOCALCIFEROL, VITAMIN D2, ORAL Take 2,000 Units by mouth drop clipper before breakfast folic acid (FOLVITE) 1 mg tablet Take 1 tablet (1 mg total) by mouth drop clipper before breakfast Gas Relief Extra Strength 125 mg chewable tablet Take 2 tablets (250 mg total) by mouth as needed for flatulence levothyroxine (SYNTHROID) 50 mcg tablet Take 1 tablet (50 mcg total) by mouth drop clipper before breakfast LYRICA 150 mg capsule Take [...] Tip Low Profile Screw Bone [id number] - [id number] - Implanted (Left) Patella Inventory item: [employer] 4mm 28mm Cannulated Blunt Tip Low Profile Screw Bone [id number] Model/Cat number: [id number] Ring Cutter Lathe Operator: [employer] As of 07/14/2022 Status: Implanted [employer] 4mm 30mm Cannulated Blunt Tip Low Profile Screw Bone [id number] - [id number] - Implanted (Left) Patella Inventory item: [employer] 4mm 30mm Cannulated Blunt Tip Low Profile Screw Bone [id number] Model/Cat number: [id number] Ring Cutter Lathe Operator: [employer] As of 07/14/2022 Status: Implanted [...] Needed: friend to provide DC ride post-op MASTER CONTROL TECHNICIAN NO ADDITIONAL COMMENTS/ FOLLOW UP D BANK BUSINESS MANAGER * Pre-Procedure Instructions - Edna Gonzalez RN - 07/31/2024 9:15 AM BLOOD BANK BUSINESS MANAGER [facility] (CPAP) [...] remove nail coverings, artificial nails and nail grenadian prior to the day of surgery. This is to lower your risk of infection and to allow the day of surgery team to monitor your oxygen levels. You should leave your valuables and any jewelry at home. No metal or piercings are allowed in the operating room. You should bring your insurance card, a photo ID (example: Distribution Clerk's License) and a method of payment for [...] Chart. If you are having surgery at [facility], please arrive on the day of surgery [...] Remove nail coverings, artificial nails and nail grenadian. The Morning of Surgery: Take a shower [...] questions, please call the CPAP Staff at [phone], Sunday-Sunday 8am-4:30pm. All patients should read the below section: Information on [facility] or [facility] ([facility]): Please view [email or web address] (Patient and Visitor Information) for parking, directions, lodging and more. For MyChart information, to activate account or password recovery, please go to [email or web address] or call [phone] (toll-free: [phone]), Sun- Sunday 8am-5pm. Information for Suicide Prevention: National Suicide Prevention Lifeline (5-245- 388-BAPH (6815)) or call or text 171. Chat resources: BeFunky.org. Surgery Times: For patients having surgery @ [facility], if your surgeon's office has not notified you of your surgery time by 2pm THE BUSINESS DAY BEFORE your surgery, please call the surgery center at [phone] and ask for your surgeon's office The [facility] ([facility]) does not provide arrival times for theday of surgery or provide the duration of surgery. This information is provided by your surgeon's office or by the center where you are having surgery. We appreciate your understanding. D BANK BUSINESS MANAGER documented in this encounter Plan of Treatment [...] documented as of this encounter Care Teams Revenue Liaison Relationship Specialty Start Date End Date Jose Luis Lin MD PCP - General 03/04/21 Olman Lopez MD Medical Oncologist/Vamp Wetter Hematology and Oncology 03/21/18 [place] [address] [address] Physician Banquet Prep Cook Orthopedic Surgery 07/14/22 Jemal Wilson MD [address] [facility] [phone] [place] [address] Surgeon Colon and Rectal Surgery 12/08/22 Gui Gallardo MD [address] [place] [address] Tv Production Assistant Gastroenterology 12/13/22 documented as of this encounter
--- OUTSIDE RECORDS SUMMARY | 2025-05-05 11:18 | XMS_ITS | Clinical Summary ---
Author Organization [facility] Care Team Providers Care Turret Lathe Set Up Operator Name Role Phone Unavailable Primary Care Provider [...]
--- OUTSIDE RECORDS SUMMARY | 2025-05-05 11:18 | XMS_ITS | Encounter Summary ---
Author Organization [facility] Address [address] [place] [address] Care Team Providers Care Information Technology Project Manager Name Role Phone Aaron Duggan MD Unavailable [phone] Jose Luis Lin MD Primary Care Provider Encounter Details Date Type Department Care Team (Late Contact Info) Description 11/28/2022 Abstract [facility] [address] [address] Ekaterina Sánchez MA Social History Tobacco Use Types Packs/Day Years Used Date Smoking Tobacco: Former Cigarettes Q uit: 05/1985 Smokeless Tobacco: Never Alcohol Use Standard Drinks/Week Comments No 0 (1 standard drink = 0.6 oz pur e alcohol) Comments Unknown Sex and Gender Information Value Date Recorded Sex Assigned at Female 09/10/2024 1:02 PM REMOTE ENCODING OPERATIONS SUPERVISOR Legal Sex Female 9:18 PM CDT Gender [...] Coronavirus/COVID-19? No / Unsure 10/31/2022 8:37 AM REMOTE ENCODING OPERATIONS SUPERVISOR documented as of this encounter Plan of Treatment Upcoming Encounters Date Type Department Care Team (Late Contact Info) Description 09/15/2025 11:00 AM REMOTE ENCODING OPERATIONS SUPERVISOR Office Visit [facility] [place] [address] [address] Aaron Duggan MD [address] [facility] [address] [place] [address] documented as of this encounter Procedures Procedure [...] Genericprovider LABORATORY Final Result * Nt-Pro Bnp [place] (11/05/2022) PRO-BRAIN NATRIURETIC PEPTIDE 560 11/05/2022 us Default History Genericprovider GENERAL SUPPLY & EQUIPMENT ORDERABLES Final Result documented in this encounter Visit Diagnoses Not on filedocumented in this encounter Care Teams Information Technology Project Manager Relationship Specialty Start Date End Date Jose Luis Lin MD [address] [address] PCP - General FAMILY PRACTICE 08/27/17 Aaron Duggan MD [address] [address] Swati Gold Marker CARDIOVASCULAR DISEASE 01/26/16 documented as of this encounter
--- OUTSIDE RECORDS SUMMARY | 2025-05-05 11:18 | XMS_ITS | Clinical Summary ---
Author Organization [facility] Address [facility] [place] [address] Care Team Providers Care Balance Wheel Screw Hole Tapper Name Role Phone Aaron Duggan MD Unavailable [phone] Jose Luis Lin MD Primary Care [...] 1 MG tablet daily. 10/01/2023 Active Pancrelipase, Rob-Svxd-Vklr, (CREON) 26618 UNIT capsule 1 capsule (24,000 units of [...] Sex Assigned at Female 09/10/2024 1:02 PM AQUATIC CENTRE MANAGER Legal Sex Female 9:18 PM CDT Gender Identity Not on file Sexual Orientation Not on file Occupation Industry Job Start Date Job End Date Not on file Not on file Not on file Not on file Last Filed Vital Signs Vital Sign Reading Time Taken Comments Blood Pressure 132/66 09/10/2024 1:04 PM AQUATIC CENTRE MANAGER Pulse 64 09/10/2024 1:04 PM AQUATIC CENTRE MANAGER Temperature - - Respiratory Rate 16 06/19/2022 2:30 PM CDT Oxygen Saturation 98% 09/10/2024 1:04 PM AQUATIC CENTRE MANAGER Inhaled Oxygen Concentration - - Weight 68.9 kg (152 lb) 09/10/2024 1:04 PM AQUATIC CENTRE MANAGER Height 165.1 cm (5' 5) 09/10/2024 1:04 PM AQUATIC CENTRE MANAGER Body Mass Index 25.29 09/10/2024 1:04 PM AQUATIC CENTRE MANAGER Plan of Treatment Upcoming Encounters Date Type Department Care Team (Late st Contact Info) Description 09/15/2025 11:00 AM AQUATIC CENTRE MANAGER Office Visit [facility], [address] [address] Aaron Duggan MD [facility]. [address] [address] Health Maintenance Due Date Last Done Comments [...] 12:15 PM 06/19/2022 5:25 PM Care Teams Balance Wheel Screw Hole Tapper Relationship Specialty Start Date End Date Jose Luis Lin MD [facility]. [address] [address] PCP - General FAMILY PRACTICE 08/27/17 Aaron Duggan MD [facility]. [address] [address] [place] Wool Fleece Sorter CARDIOVASCULAR DISEASE 01/26/16
--- OUTSIDE RECORDS SUMMARY | 2025-05-05 11:18 | XMS_ITS | Clinical Summary ---
Author Organization [facility] Address [address] [place] [address] Phone Care Team Providers Care Hydrology Teacher Name Role Phone Drew Weeks MD Primary Care Provider [phone] Allergies Active Allergy Reactions Criticality Noted Date [...] tablet Take 50 mcg by mouth. Active pzbubz-tszhsajg-d mylase (Creon) 24,000-76,000-120 ,000 unit capsule Take 1 Capsule by mouth. 3 Active mv-min/folic/vit K/lycop/coQ10 (DAILY MULTIVITAMIN ORAL) Take by mouth. Active Active Problems Patient Care Coordination No te Formatting of this note migh t be different from the original. 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 Not on file Not on file Not [...] 162.6 cm (5' 4) 07/12/2021 2:43 PM BRUSH MAKER MACHINE Body Mass Index 26.61 07/12/2021 2:43 PM BRUSH MAKER MACHINE Plan of Treatment Health Maintenance Due Date Last Done Comments FIT-DNA Q 3 years 01/31/1997 FIT/FOBT Q 1 year 01/31/1997 Flex Sig/CT Colonography Q 5 years 01/31/1997 RSV VACCINE (60+ or ) (1 - Risk 60-74 years 1-dose series) 2012 BREAST CANCER SCREENING 02/28/2025 02/29/20 24, 02/29/2024, 04/28/2022, Additional history exists INFLUENZA VACCINE (#1) 2025 9, 05/16/2018, 04/27/2017, Additional history exists COVID-19 Vaccine (2 - 2024-2 6 season) 2025 04/09/2021 COLORECTAL SCREENING 08/06/2027 08/06/2017, 08/06/2017, 03/27/2011 (Previously [...] Anatomical Region Laterality Modality Breast Bilateral Mammography Randolph Stephens MD MAMMO ORDERABLES Edited Result - Final * XR DEXA BONE DENSITY AXIAL 1 OR MORE SITES (05/18/2016) Anatomical Region Laterality Modality Other Randolph Stephens MD DIAGNOSTIC IMAGING ORDERABLES Ed ited Result - Final from Last 3 Months or Most Recently Relevant to Health Maintenance Insurance Care Teams Hydrology Teacher Relationship Specialty Start Date End Date Drew Weeks MD [address] [place] [address] PCP - General 03/22/18
--- OUTSIDE RECORDS SUMMARY | 2025-05-05 11:18 | XMS_ITS | Clinical Summary ---
Author Organization [facility] Address [address] [place] [id number] Care Team Providers Care Sign Language Translator Name Role Phone Olman Lopez MD Unavailable [phone] Jose Luis Lin MD Primary Care Provider Jolanta Varela Unavailable [phone] Jemal Wilson MD Unavailable [phone] Gui Gallardo MD Unavailable + Allergies Active [...] ORALIndications:he alth Take 2,000 Units by mouth embossed or impressed lettering painter before breakfast Active levothyroxine (SYNTHROID) 50 mcg tabletIndications: hypothyroidism Take 1 tablet (50 mcg total) by mouth embossed or impressed lettering painter before breakfast Active Gas Relief Extra Strength 125 mg chewable tablet Take 2 tablets (250 mg total) by mouth as needed for flatulence 3 Active calcium carbonate (CALCIUM 500 ORAL)Indications:h ealth Take 1,000 mg by mouth embossed or impressed lettering painter before breakfast Active Creon 24,000-76,000 -120,000 unit capsuleIndications :exocrine pancreatic insufficiency 1 capsule 3 (three) times a day with meals 3 Active alendronate (FOSAMAX) 70 mg tabletIndications: Post-Menopausal Osteoporosis Take 1 tablet (70 mg total) by mouth every 7 days Take on Sunday 4 Active folic acid (FOLVITE) 1 mg tabletIndications: health Take 1 tablet (1 mg total) by mouth embossed or impressed lettering painter before breakfast 4 Active traMADoL (ULTRAM) 50 [...] 07/10/2022 Assessment & Plan (07/10/2022 3:43 PM BUSINESS DEVELOPMENT REPRESENTATIVE): Patient has a displaced comminuted angulated fracture [...] (07/03/2022): Added automatically from request for surgery [id number] Sacroiliitis, not elsewhere classified Assessment & Plan [...] Encounters Date Type Department Care Team Description 04/21/2025 11:00 AM CDT Office Visit [facility] [address] [facility] [address] [address] [place] [address] Fior Dominique NP Spinal stenosis, lumbar region, without neurogenic claudication [M48.061] (Primary Dx) 04/21/2025 9:43 AM CDT - 04/21/2025 11:59 PM CDT Hospital Encounter [facility] Diagnostic Imaging [address] [place] [address] Low back pain, unspecified back pain laterality, unspecified chronicity, unspecified whether sciatica present Discharge Disposition: Discharge to home or self care 04/13/2025 10:08 AM CDT - 04/13/2025 11:59 PM CDT Hospital Encounter [facility] Imaging and Radiology [address] [place] [address] Right hip pain Discharge Disposition: Discharge to home or self care 04/13/2025 9:45 AM CDT Office [place] [facility] [place] at [address], [place] [phone] Lul Holbrook MD Right hip pain (Primary Dx); Degeneration of intervertebral disc of lumbar region with discogenic back pain 04/13/2025 Orders Only [facility] [address] [facility] [address] [place] [address] Lauren Reed Low back pain, unspecified back pain laterality, unspecified chronicity, unspecified whether sciatica present (Primary Dx) 04/13/2025 Telephone [facility] [address] [facility] [address] [place] [address] Lauren Reed 04/13/2025 Telephone [facility] Medicine Scheduling [address] [place] [address] Angela Burks 04/13/2025 Orders Only [facility] [place] [place] Medicine at [address] [facility] [phone] Lul Holbrook MD Right hip pain (Primary Dx) 04/01/2025 10:45 AM CDT - 04/01/2025 11:59 PM CDT Hospital Encounter [facility] [address] [place] [address] Screening mammogram, encounter for Discharge Disposition: Discharge to home or self care 03/05/2025 Orders Only [facility] Medicine Division of Nephrology [address] [place] [id number] Chloe Huerta MD 02/24/2025 11:17 AM CDT - 02/24/2025 11:59 PM CDT Hospital Encounter [facility] Imaging [address] [place] [address] Edema of left lower extremity Discharge Disposition: Discharge to home or self care 02/09/2025 6:40 PM CDT Lab [facility] Medicine ([facility]) [address] [place] [address] Stage 3b chronic kidney disease (HCC); 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); Proteinuria, unspecified type; Renal osteodystrophy 02/09/2025 3:20 PM CDT Office Visit [facility] Medicine Nephrology [address] [facility] Advanced Medicine 5th [place] [address] [place] [address] Tor Robin MD 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) (Primary Dx); Stage 3b chronic kidney disease (HCC); Proteinuria, unspecified type; Renal osteodystrophy; Edema of left lower extremity from Last 3 Months Immunizations Immunization Administration [...] h/o ascites , r/t appendix abscess/fluid Shingles 2016 h/o-nerve pain r emains back/abdomen/waist Hypothyroidism Arthritis [...] 1 973 - 1984 Smokeless Tobacco: Never Tobacco [...] on file Legal Sex Female 1:10 AM BUSINESS DEVELOPMENT REPRESENTATIVE Gender Identity Not on file Sexual Orientation Not on file Obstetrics History Para Term AB IAB SAB Ectopic Multiple Livin g Live Births 0 0 0 0 0 0 0 0 0 0 0 Last Filed Vital Signs Vital Sign Reading Time Taken Comments Blood Pressure 133/53 04/21/2025 11:00 AM CDT Pulse 82 04/21/2025 11:00 AM CDT Temperature 36.8 C (98.3 F) 04/21/2025 11:00 AM CDT Respiratory Rate 14 04/21/2025 11:00 AM CDT Oxygen Saturation 100% 04/21/2025 11:00 AM CDT Inhaled Oxygen Concentration - - Weight 71.5 kg (157 lb 9.6 oz) 04/21/2025 11:00 AM CDT Height 161.3 cm (5' 3.5) 04/21/2025 11:00 AM CD T Body Mass Index 27.48 04/21/2025 11:00 AM CDT Plan of Treatment Health Maintenance Due Date Last Done Comments Depression Screening 1950 Well Visit 65+ 01/31/2017 Osteoporosis Screening-Bone Density Scan 03/13/2025 03/13/2023, 05/18/2016, 05/18/2016, Additional history exists Covid-19 Vaccine (2024-2 6 season) 2025 05/03/2022, 11/24/2021, 04/09/2021, Additional history exists Influenza Vaccine (#1) 2025 , 05/16/2019, 05/16/2018, Additional history exists Breast Cancer Screening-Mammogram 04/01/2026 04/01/2025, 02/29/2024, 04/28/2022, Additional history exists Fall Risk Assessment 04/21/2026 04/21/2025 Colon Cancer Screening-Colonoscopy 08/06/2027 08/06/2017 DTaP/Tdap/Td Vaccine (3 - Td or Tdap) 12/04/2028 12/04/2018, 11/08/2007 Colon Cancer Screening-CT Colonography Discontinued 08/06/2017 Colon Cancer Screening-DNA Stool Discontinued 12/11/20 17 Colon Cancer Screening-FIT Discontinued 08/06/2017 Colon Cancer Screening-Sigmoidoscopy Discontinued 08/06/2017 Pneumococcal vaccine 65+ Completed 018, 04/27/2017, 07/15/2015, Additional history exists Zoster Vaccine Completed 01/23/2019, 09/28, 07/15/2015 Hepatitis C Screening Completed 05/15/2023 Medical Devices Implanted Type Area Seismic Prospecting Supervisor Device Identifier Shelf Expiration Date Model / Serial / Lot [employer] 4mm 28mm Cannulated Blunt Tip Low Profile Screw Bone Ar-5051-28 - [id number] Implanted:Qty: 1 on 07/14/2022 by Jj Moses MD at [facility] Left: Patella [employer] AR-5051-28 / / [employer] 4mm 30mm Cannulated Blunt Tip Low Profile Screw Bone Ar-5051-30 - [id number] Implanted:Qty: 1 on 07/14/2022 by Jj Moses MD at [facility] Left: Patella [employer] AR-5051-30 / / Procedures Procedure Name Priority Date/Time Associated Diagnosis Comments XR SPINE LUMBAR 2 OR 3 VIEWS Schedule Routine, Read Routine (OP Routine) 04/21/2025 9:54 AM CDT Low back pain, unspecified back pain laterality, unspecified chronicity, unspecified whether sciatica present XR HIP RIGHT W PELVIS 2 OR 3 VIEWS Schedule Routine, Read Routine (OP Routine) 04/13/2025 10:49 AM CDT Right hip pain SCREENING MAMMOGRAM BILATERAL W JOSELO Schedule Routine, [...] disease (HCC) Proteinuria, unspecified type Renal osteodystrophy HEPATITIS C ANTIBODY Routine 05/15/2023 12:00 PM CDT Cirrhosis of liver with ascites, unspecified hepatic cirrhosis type (HCC) DEXA AXIAL SKELETON BONE DENSITY 1 OR MORE SITES Schedule Routine, Read Routine (OP Routine) 03/13/2023 1:00 PM CDT Asymptomatic menopausal state COLONOSCOPY REPORT 08/06/2017 from Last 3 Months or Most Recently Relevant to Health Maintenance Results * XR Spine Lumbar 2 or 3 Views (04/21/2025 9:54 AM CDT) Anatomical Region Laterality Modality Spine N/A Computed Radiogr aphy 04/21/2025 11:4 6 AM CDT Impressions 04/21/2025 11:46 AM CDT Moderate degenerative changes as described above. Electronically signed by: Nghia Puckett M.D. Narrative 04/21/2025 11:46 AM CDT EXAMINATION: XR SPINE LUMBAR 2 OR 3 VIEWS HISTORY: The patient is a 75-year-old female who presents with low back pain. TECHNIQUE: AP and lateral view of the lumbar spine. FINDINGS: Alignment normal and no fracture or dislocation is seen. Degenerative osteophytes are seen radiating anteriorly off the bodies of most of the lumbar vertebrae. There is mild narrowing of the disc space at the L2-L3 level and from the L4 S1 levels inclusive. Pedicles intact. Sacroiliac joints normal. Procedure Note Nghia Puckett MD - 04/21/2025 EXAMINATION: XR SPINE LUMBAR 2 OR 3 VIEWS HISTORY: The patient is a 75-year-old female who presents with low back pain. TECHNIQUE: AP and lateral view of the lumbar spine. FINDINGS: Alignment normal and no fracture or dislocation is seen. Degenerative osteophytes are seen radiating anteriorly off the bodies of most of the lumbar vertebrae. There is mild narrowing of the disc space at the L2-L3 level and from the L4 S1 levels inclusive. Pedicles intact. Sacroiliac joints normal. IMPRESSION: Moderate degenerative changes as described above. Electronically signed by: Nghia Puckett M.D. Fior Dominique MUTUAL FUND ACCOUNTANT IMG XR PROCEDURES Final Result * XR Hip Right 2 or 3 Views W Pelvis (04/13/2025 10:49 AM CDT) Anatomical Region Laterality Modality Lower Extremities, Hip, Pelvis Right C omputed Radiography 04/13/2025 2:3 2 PM CDT Impressions 04/13/2025 2:32 PM CDT Early degenerative changes. Electronically signed by: Nghia Puckett M.D. Narrative 04/13/2025 2:32 PM CDT EXAMINATION: XR HIP RIGHT 2 OR 3 VIEWS W PELVIS HISTORY: The patient is a 75-year-old female who presents with right hip pain. Comparison is made with the previous study dated 04/12/2021. TECHNIQUE: AP view of the pelvis along with AP and frog-leg view of the right hip. FINDINGS: No fracture or dislocation is seen. Early degenerative changes are seen involving the right hip joint. Procedure Note Nghia Puckett MD - 04/13/2025 EXAMINATION: XR HIP RIGHT 2 OR 3 VIEWS W PELVIS HISTORY: The patient is a 75-year-old female who presents with right hip pain. Comparison is made with the previous study dated 04/12/2021. TECHNIQUE: AP view of the pelvis along with AP and frog-leg view of the right hip. FINDINGS: No fracture or dislocation is seen. Early degenerative changes are seen involving the right hip joint. IMPRESSION: Early degenerative changes. Electronically signed by: Nghia Puckett M.D. Lul Holbrook MD IMG XR PROCEDURES Nithya l Result * Screening Mammogram Bilateral W Joselo (04/01/2025 [...] * (ABNORMAL) eGFR (02/09/2025 4:30 PM CDT) [facility] eGFR 34(L) >=60 mL/min/1. 73 m2 Comment: [...] MD LAB BLOOD ORDERABLE S Final Result [facility] Department [place] [address] * Differential, auto (02/09/2025 4:30 PM CDT) [facility] Neutrophil abs 4.22 1.50 - 6.50 K/cumm Imm gran abs 0.01 0.00 - 0.10 K/cumm [facility] Lymphocyte abs 1.18 0.80 - 3.30 K/cumm [facility] Monocyte abs 0.28 0.20 - 0.80 K/cumm [facility] Eosinophil abs 0.14 0.00 - 0.50 K/cumm [facility] Basophil abs 0.08 0.00 - 0.10 K/cumm [facility] Neutrophil pct 71.3 % [facility] Comment: Interpretive Data Percent cell count reference ranges are not reported, since discordance with absolute values may lead to misinterpretation of CBC data. Current Interpretive Data was last revised on 2017. Imm gran pct 0.2 % [facility] Comment: Interpretive Data Percent cell count reference ranges are not reported, since discordance with absolute values may lead to misinterpretation of CBC data. Current Interpretive Data was last revised on 2017. Lymphocyte pct 20.0 % [facility] Comment: Interpretive Data Percent cell count reference ranges are not reported, since discordance with absolute values may lead to misinterpretation of CBC data. Current Interpretive Data was last revised on 2017. Monocyte pct 4.7 % [facility] Comment: Interpretive Data Percent cell count reference ranges are not reported, since discordance with absolute values may lead to misinterpretation of CBC data. Current Interpretive Data was last revised on 2017. Eosinophil pct 2.4 % [facility] Comment: Interpretive Data Percent cell count reference ranges are not reported, since discordance with absolute values may lead to misinterpretation of CBC data. Current Interpretive Data was last revised on 2017. Basophil pct 1.4 % [facility] Comment: Interpretive Data Percent cell count reference ranges are not reported, since discordance with absolute values may lead to misinterpretation of CBC data. Current Interpretive Data was last revised on 2017. Blood 02/09/2025 4:30 PM CDT 02/09/2025 5:13 PM CDT us Tor Bernard MD LAB BLOOD ORDERABLE S Final Result [facility] Department [place] [address] * (ABNORMAL) Iron profile w/ IBC (02/09/2025 4:30 PM CDT) Iron 71 35 - 145 mcg/dL TIBC 237(L) 250 - 400 mcg/dL [facility] Transferrin saturation 30 20 - 50 % [facility] Blood 02/09/2025 4:30 PM CDT 02/09/2025 5:13 PM CDT Tor Bernard MD LAB BLOOD ORDERABLE S Final Result Performing Organization Address [facility] de Phone Number [facility] Department [place] [address] * (ABNORMAL) Cystatin C (02/09/2025 4:30 PM CDT) [facility] Cystatin C 1.84(H) 0.60 - 1.20 mg/L Comment: Interpretive Data Cystatin C concentrations vary widely in the first month of life, particularly in pre-term infants. Concentrations gradually diminish to adult levels by 1 year of life. Concentrations tend to rise with diminishing renal function in individuals greater than 60 years of age. Current Interpretive Data was last revised on 2020. Testing performed by: [facility], [place]., [address] Blood 02/09/2025 4:30 PM CDT 02/09/2025 5:29 PM CDT Tor Bernard MD LAB BLOOD ORDERABLE S Final Result Performing Organization Address [facility] de Phone Number [facility] Department [place] [address] * (ABNORMAL) CBC with auto differential (02/09/2025 4:30 PM CDT) [facility] WBC 5.91 3.80 - 9.90 K/cumm Hgb 9.2(L) 11.9 - 15.5 g/dL [facility] Hct 29.1(L) 35.6 - 45.5 % [facility] Plt 183 150 - 400 K/cumm [facility] MPV 12.8(H) 9.1 - 12.3 fL [facility] RBC 3.12(L) 3.90 - 5.20 M/cumm [facility] MCV 93.3 81.3 - 96.4 fL [facility] MCH 29.5 27.1 - 33.3 pg [facility] MCHC 31.6(L) 32.3 - 35.7 g/dL [facility] RDW CV 14.8 11.1 - 14.9 % [facility] RDW SD 50.7(H) 35.7 - 48.1 fL [facility] NRBC abs 0.00 0.00 - 0.01 K/cumm [facility] Blood 02/09/2025 4:30 PM CDT 02/09/2025 5:13 PM CDT Tor Bernard MD LAB BLOOD ORDERABLE S Final Result Performing Organization Address [facility] Co de Phone Number [facility] Department [place] [address] * Protein / creatinine ratio, urine, random (02/09/2025 4:30 PM CDT) Protein, ur, quant 6.7 mg/dL Comment: Interpretive Data No reference range established. Current interpretive data was last revised 2019. Creatinine Ur 90.4 mg/dL [facility] Comment: Interpretive Data No reference range established. Current interpretive data was last revised 2019. Protein/creatinin e ratio 73.5 0.0 - 180.0 mg/g CR [facility] Urine 02/09/2025 4:30 PM CDT 02/09/2025 5:13 PM CDT us Tor Bernard MD LAB URINE ORDERABLE S Final Result Performing Organization Address City/[facility]/ZIP Co de Phone Number [facility] Department [place] [address] * Albumin Creatinine Ratio, Urine (02/09/2025 4:30 PM CDT) Albumin Ur <12.0 mg/L Comment: Interpretive Data No reference range established. Current interpretive data was last revised 2019. Creatinine Ur 90.4 mg/dL [facility] Comment: Interpretive Data No reference range established. Current interpretive data was last revised 2019. Albumin Creatinine Ratio, Ur <13 1 - 29 mg/g [facility] Urine 02/09/2025 4:30 PM CDT 02/09/2025 5:13 PM CDT Tor Bernard MD LAB URINE ORDERABLE S Final Result Performing Organization Address City/[facility]/ZIP Co de Phone Number [facility] Department [place] [address] * Ferritin (02/09/2025 4:30 PM CDT) [facility] Ferritin 37 13 - 150 ng/mL Blood 02/09/2025 4:30 PM CDT 02/09/2025 5:13 PM CDT Tor Bernard MD LAB BLOOD ORDERABLE S Final Result Performing Organization Address City/[facility] Co de Phone Number [facility] Department [place] [address] * (ABNORMAL) Renal function panel (02/09/2025 4:30 PM CDT) Pathologist [facility] Sodium 141 135 - 145 mmol/L Potassium, pl 4.8 3.3 - 4.9 mmol/L [facility] Chloride 111(H) 97 - 110 mmol/L [facility] CO2 26 22 - 32 mmol/L [facility] Anion gap 4 2 - 15 mmol/L [facility] BUN 15 6 - 25 mg/dL [facility] Creatinine 1.60(H) 0.60 - 1.10 mg/dL [facility] Glucose 80 70 - 199 mg/dL [facility] Comment: Interpretive Data Fasting glucose >/= 126 [...] classification and Diagnosis of Diabetes Diabetes Care 2021; 46: S19-S40. Current interpretive data was last revised 2022. Calcium 8.4(L) 8.5 - 10.3 mg/dL [facility] Phosphorus, pl 2.7 2.3 - 4.5 mg/dL [facility] Albumin 3.2(L) 3.5 - 5.0 g/dL [facility] Blood 02/09/2025 4:30 PM CDT 02/09/2025 5:13 PM CDT us Tor Benrard MD LAB BLOOD ORDERABLE S Final Result Performing Organization Address City/[facility]/ZIP Co de Phone Number [facility] [place] [address] * Hepatitis C antibody Blood (05/15/2023 12:00 PM CDT) Hep C Ab Nonreactive Nonreactive Comment:Antibodies to HCV no t detected. Does NOT exclude the possibility of recent exposure to HCV. Current interpretive data was last revised on 22 Blood 05/15/2023 12:0 0 PM CDT 05/15/2023 12:18 PM CDT us Mark Mcdermott MD LAB MICROBIOLOGY - GENERAL ORD ERABLES Final Result [facility] [place] [address] * Dexa Axial Skeleton Bone Density 1 or 2 Site (03/13/2023 1:00 PM CDT) Anatomical Region Laterality Modality Body N/A Other 03/13/2023 10:2 9 PM CDT Narrative 03/13/2023 10:30 PM CDT EXAM DESCRIPTION: DEXA AXIAL SKELETON BONE DENSITY 1 OR MORE SITES REASON FOR STUDY: 73 y/o year old F with given history of: asymptomatic menopausal state Osteoporosis screening Post menopausal Seismic Prospecting Supervisor/Model: [employer] Discovery SL (S/N [id number]) CLINICAL INFORMATION: Current height: 63 inches Maximum [...] Moi Dorman M.D. MF: ALLIE Report ID: [id number] Reading Location: [id number] Procedure Note Moi Dorman MD - 03/13/2023 EXAM DESCRIPTION: DEXA AXIAL SKELETON BONE DENSITY 1 OR MORE SITES REASON FOR STUDY: 73 y/o year old F with given history of:asymptomatic menopausal state Osteoporosis screening Post menopausal Seismic Prospecting Supervisor/Model: [employer] Discovery SL (S/N [id number]) CLINICAL INFORMATION: Current height: 63 inches Maximum [...] Moi Dorman M.D. MF: ALLIE Report ID: [id number] Reading Location: [id number] Jose Luis Lin MD IMG DXA PROCEDURES Fin al Result * COLONOSCOPY REPORT (08/06/2017) Anatomical Region Laterality Modality Other Provider Scanning GI PROCEDURE ORDERABLES Final Result from Last 3 Months or Most Recently Relevant to Health Maintenance Insurance MEDICARE [facility] Address: [place] [id number] [place] [id number] [facility]ICARE [facility] Address: [facility] [address] [place] [address] [facility] MEDICARE [facility] Address: [address] [address] Care Teams Sign Language Translator Relationship Specialty Start Date End Date Jose Luis Lin MD PCP - General 03/04/21 Olman Lopez MD Medical Oncologist/Insole Stiffener Hematology and Oncology 03/21/18 [place] [address] [facility] [address] [place] [address] Physician Progressive Care Nurse Orthopedic Surgery 07/14/22 Jemal Wilson MD [address] [facility] [phone] [place] [address] Surgeon Colon and Rectal Surgery 12/08/22 Gui Gallardo MD [address] [place] [address] Trucker Hand Gastroenterology 12/13/22
--- OUTSIDE RECORDS SUMMARY | 2025-05-05 11:18 | XMS_ITS | Encounter Summary ---
Author Organization [facility] Address [address] [facility] [place] [address] Phone Care Team Providers Care Combat Systems Engineer Name Role Phone Unavailable Primary Care Provider Unavailabl e Reason for Visit * Reason Comments Medication Refill Encounter Details Date Type Department Care Team (Late st Contact Info) Description 03/07/2023 Refill [facility] - Primary Care - Bob [address] [place] [address] Sarah Gary, ORACLE PROGRAMMER ANALYST, SAP ENTERPRISE PORTAL CONSULTANT [address] [place] [address] Medication Refill Social History Tobacco [...]
--- OUTSIDE RECORDS SUMMARY | 2025-05-05 11:18 | XMS_ITS | Clinical Summary ---
Author Organization [facility] [employer] Address [address] [place] [address] Care Team Providers Care Wastewater Treatment Plant Chemist Name Role Phone Drew Weeks MD Primary Care Provider [phone] Source Comments [facility] [employer],non-owned Affiliates and Associated Physician Practices is amultiple site organization consisting of ambulatory clinics and hospital sitesin [place], [place], [place] and [place]. This disclosure is being madepursuant to the Care Everywhere program and may not contain all information available regarding this patient. Last updated 18.[facility] [employer] Allergies Active Allergy Reactions Criticality Noted Date [...] on file Legal Sex Female 11:36 AM CRUISE COUNSELOR Gender Identity Not on file Sexual Orientation Not on file Last Filed Vital Signs Vital Sign Reading Time Taken Comments Blood Pressure 129/76 05/08/2011 10:12 AM CDT Pulse 96 05/08/2011 10:12 AM CDT Temperature 36.3 C (97.3 F) 04/10/2011 3:19 PM CDT Respiratory Rate 14 10/19/2015 10:42 AM CRUISE COUNSELOR Oxygen Saturation - - Inhaled Oxygen Concentration - - Weight 81.6 kg (180 lb) 10/19/2015 10:42 AM CRUISE COUNSELOR Height 162.6 cm (5' 4) 10/19/2015 10:42 AM CRUISE COUNSELOR Body Mass Index 30.9 10/19/2015 10:42 AM CRUISE COUNSELOR Plan of Treatment Health Maintenance Due Date [...] of 2) 01/31/2002 LIPID TESTING 01/21/2016 01/20/2011 DEPRESSION SCREENING 08/27/2024 COVID-19 VACCINE (1 - 2023-2 5 season) 2025 INFLUENZA VACCINE (#1) 2025 Respiratory Syncytial Virus [...] 5.0 (calc) [facility] Comment: Test Performed at: [facility] [address] [place] [address] LEFTY AMAYA DO,MPH 01/20/2011 3:40 PM CDT 01/20/2011 3:44 PM CDT Oz Delgado MD LAB - CHEMISTRY ORDERABLE S Final Result [facility] [address] [place] [address] from Last 3 Months or Most Recently Relevant to Health Maintenance Insurance MANAGED MEDICARE ADV ANTHEM Care Teams Wastewater Treatment Plant Chemist Relationship Specialty Start Date End Date Drew Weeks MD [address] [place] [phone] PCP - General 10/04/22
--- OUTSIDE RECORDS SUMMARY | 2025-05-05 11:18 | XMS_ITS | Encounter Summary ---
Author Organization [facility] Address [address] [place] [address] Care Team Providers Care Farm Operations Technical Director Name Role Phone Aaron Duggan MD Unavailable [phone] Jose Luis Lin MD Primary Care Provider Encounter Details Date Type Department Care Team (Late Contact Info) Description 12/07/2017 Abstract [facility], [address] [id number] Ekaterina Sánchez MA Social History Tobacco Use Types Packs/Day Years Used Date Smoking Tobacco: Former Cigarettes Q uit: 05/1985 Smokeless Tobacco: Never Alcohol Use Standard Drinks/Week Comments No 0 (1 standard drink = 0.6 oz pur e alcohol) Comments Unknown Sex and Gender Information Value Date Recorded Sex Assigned at Female 09/10/2024 1:02 PM CLINICAL DATA MANAGEMENT MANAGER Legal Sex Female 9:18 PM CDT Gender Identity Not on file Sexual Orientation Not on file Occupation Industry Job Start Date Job End Date Not on file Not on file Not on file Not on file documented as of this encounter Plan of Treatment Upcoming Encounters Date Type Department Care Team (Late Contact Info) Description 09/15/2025 11:00 AM CLINICAL DATA MANAGEMENT MANAGER Office Visit [facility], [address] [phone] Aaron Duggan MD [facility]. [address] [phone] documented as of this encounter Procedures Procedure [...] on filedocumented in this encounter Care Teams Farm Operations Technical Director Relationship Specialty Start Date End Date Jose Luis Lin MD [address] [address] PCP - General FAMILY PRACTICE 08/27/17 Aaron Duggan MD [facility]. [address] [address] Swati Home Comfort Advisor CARDIOVASCULAR DISEASE 01/26/16 documented as of this encounter
[2025-05-05 18:32] LABS: INR 1.1; Prothrombin Time 14.2 Seconds (11.1-14.7)
[2025-05-05 18:33] LABS: Partial Thromboplastin Time 34.6 Seconds (22.3-36.8)
== END 2025-05-05 09:57 | disposition home or self-care (01) ==
PROVIDERS: PCP Family Medicine; Visit Provider Anesthesiology
DX: N18.32 Chronic kidney disease, stage 3b (principal)
CPT/HCPCS: 36415; 85610; 85730

== ENCOUNTER 2025-06-01 00:04 | Day surgery (SDC) | payer MEDICARE, SELFPAY ==
[2025-05-01 10:59] VITALS: BMI 27.0
--- NOTE | 2025-05-01 11:14 | PC.NURSE ---
Addendum entered by Karen Cardoza RN 05/28/25 09:21: Pt called, no changes in medicine or status since rescheduled. Pt aware of New Date and TIme Of Surgery on Sunday and Instructions rereviewed over the phone, questions answered. BIANKA Pt is to Report to the Outpatient Waiting Room, entrance under the green pavilion located off [employer], at time ___08:30am____ on date ____06/01/25___. Planned Procedure Time: _10:30am .? Time changes happen often and if your time is changed the preop area will call you the afternoon before. - You and your visitor will be asked to self-screen and do not enter if you have any COVID symptoms. Please call surgeon if you need to reschedule. - A mask is optional within the hospital at this time. Patients may have clear liquids (water, carbonated beverages, clear teas, apple juice) until 3 hours prior to surgery with a maximum of 20 ounces. - No food from midnight until time of surgery and no smoking, or chewing tobacco (or any form of nicotine). No chewing gum, candy or mints. (07:30am) Pt to take Fleets enema and Duxolax as prescribed per Dr Haddad. Take only the following medications with a SIP of water on the morning of surgery: ____Levothyroxine, Pregabalin and Tramadol if needed DO NOT STOP ANY OF YOUR OTHER PRESCRIPTION MEDICATIONS PRIOR TO SURGERY EXCEPT THE FOLLOWING Hold all vitamins and supplements for 3 days per anesthesiologist. Date of last dose is 05/28/25. Medications to discontinue per physician NONE Date to take last dose NONE Original Note: Report to the Outpatient Waiting Room, entrance under the green pavilion located off [employer], at time ___10:00am____ on date ____05/11/25___. Planned Procedure Time: _12:00pm .? Time changes happen often and if your time is changed the preop area will call you the afternoon before. - You and your visitor will be asked to self-screen and do not enter if you have any COVID symptoms. Please call surgeon if you need to reschedule. - A mask is optional within the hospital at this time. Patients may have clear liquids (water, carbonated beverages, clear teas, apple juice) until 3 hours prior to surgery with a maximum of 20 ounces. - No food from midnight until time of surgery and no smoking, or chewing tobacco (or any form of nicotine). No chewing gum, candy or mints. (0900am) Pt to take Fleets enema and Duxolax as prescribed per Dr Haddad. Take only the following medications with a SIP of water on the morning of surgery: ____Levothyroxine, Pregabalin and Tramadol if needed DO NOT STOP ANY OF YOUR OTHER PRESCRIPTION MEDICATIONS PRIOR TO SURGERY EXCEPT THE FOLLOWING Hold all vitamins and supplements for 3 days per anesthesiologist. Date of last dose is 05/07/25. Medications to discontinue per physician NONE Date to take last dose NONE Please no make-up, nail greenlandic, hairspray, perfume, deodorant, or body powder the day of surgery.? No jewelry (including any body piercings) or valuables the day of surgery, leave them at home.? Please take a shower or bath the night before, or the morning of, surgery with an antibacterial soap.? Wear comfortable, loose fitting clothing.? Children are encouraged to wear pajamas. - Jewelry must be removed prior to entering the operating room.? Rings and piercings that are not removed may be cut off. - The hospital will not accept responsibility for valuables.? - Please leave all valuables, including medications, at home the day of surgery. If you are going home after surgery, a licensed hearse driver must drive you home.? - NO public transportation without another adult if you receive anesthesia. - We recommend that an adult stay with you for 24 hours following discharge. - We also recommend that you do not drive, make important decision, drink alcoholic beverages, or take any drugs that were not prescribed by your health care provider for at least 24 hours after your discharge time. Follow any additional instructions given to you from your surgeon. Telephone instructions given to ____Patient and asked if any additional questions and then verbalized understanding. Patient advised to call surgeon office or pre surgery nurse liaison [phone] if any additional questions.
--- OUTSIDE RECORDS SUMMARY | 2025-05-11 00:52 | XMS_ITS | Encounter Summary ---
Author Organization [facility] Address [address] [place] [address] Care Team Providers Care Principal Strategist Name Role Phone Aaron Duggan MD Unavailable [phone] Jose Luis Lin MD Primary Care Provider Encounter Details Date Type Department Care Team (Late Contact Info) Description 12/07/2017 Abstract [facility] at [facility], [address] [id number] Ekaterina Sánchez MA Social History Tobacco Use Types Packs/Day Years Used Date Smoking Tobacco: Former Cigarettes Q uit: 05/1985 Smokeless Tobacco: Never Alcohol Use Standard Drinks/Week Comments No 0 (1 standard drink = 0.6 oz pur e alcohol) Comments Unknown Sex and Gender Information Value Date Recorded Sex Assigned at Female 09/10/2024 1:02 PM LOAN INSPECTOR Legal Sex Female 9:18 PM CDT Gender Identity Not on file Sexual Orientation Not on file Occupation Industry Job Start Date Job End Date Not on file Not on file Not on file Not on file documented as of this encounter Plan of Treatment Upcoming Encounters Date Type Department Care Team (Late Contact Info) Description 09/15/2025 11:00 AM LOAN INSPECTOR Office Visit [facility], [address] [phone] Aaron Duggan MD [facility]. [address] [phone] documented as of this encounter Procedures Procedure [...] on filedocumented in this encounter Care Teams Principal Strategist Relationship Specialty Start Date End Date Jose Luis Lin MD [address] [address] PCP - General FAMILY PRACTICE 08/27/17 Aaron Duggan MD [facility]. [address] [address] Swati University Counselor CARDIOVASCULAR DISEASE 01/26/16 documented as of this encounter
--- OUTSIDE RECORDS SUMMARY | 2025-05-11 00:52 | XMS_ITS | Encounter Summary ---
Author Organization [facility] Address [address] [place] [address] Phone Care Team Providers Care Maintenance Shop Laborer Name Role Phone Unavailable Primary Care Provider Unavailabl e Reason for Visit * Reason Comments Medication Refill Encounter Details Date Type Department Care Team (Late st Contact Info) Description 03/07/2023 Refill [facility] - Primary Care - Bob [address] [place] [address] Sarah Gary, FURNITURE MOVER, PHOTOGRAPHIC PRESS SCREWMAKER [address] [place] [address] Medication Refill Social History Tobacco [...]
--- OUTSIDE RECORDS SUMMARY | 2025-05-11 00:52 | XMS_ITS | Clinical Summary ---
Author Organization [facility] [employer] Address [address] [place] [place] [address] Care Team Providers Care Tobacco Stripping Machine Operator Name Role Phone Drew Weeks MD Primary Care Provider [phone] Source Comments [facility] [employer],non-owned Affiliates and Associated Physician Practices is amultiple site organization consisting of ambulatory clinics and hospital sitesin [place], [place], [place] and [place]. This disclosure is being madepursuant to the Care Everywhere program and may not contain all information available regarding this patient. Last updated 18.[facility] [employer] Allergies Active Allergy Reactions Criticality Noted Date [...] on file Legal Sex Female 11:36 AM APPLICATIONS DEVELOPER Gender Identity Not on file Sexual Orientation Not on file Last Filed Vital Signs Vital Sign Reading Time Taken Comments Blood Pressure 129/76 05/08/2011 10:12 AM CDT Pulse 96 05/08/2011 10:12 AM CDT Temperature 36.3 C (97.3 F) 04/10/2011 3:19 PM CDT Respiratory Rate 14 10/19/2015 10:42 AM APPLICATIONS DEVELOPER Oxygen Saturation - - Inhaled Oxygen Concentration - - Weight 81.6 kg (180 lb) 10/19/2015 10:42 AM APPLICATIONS DEVELOPER Height 162.6 cm (5' 4) 10/19/2015 10:42 AM APPLICATIONS DEVELOPER Body Mass Index 30.9 10/19/2015 10:42 AM APPLICATIONS DEVELOPER Plan of Treatment Health Maintenance Due Date [...] 5.0 (calc) [facility] Comment: Test Performed at: [facility] [address] [place] [address] LEFTY AMAYA DO,MPH 01/20/2011 3:40 PM CDT 01/20/2011 3:44 PM CDT Oz Delgado MD LAB - CHEMISTRY ORDERABLE S Final Result [facility] [address] [place] [address] from Last 3 Months or Most Recently Relevant to Health Maintenance Insurance MANAGED MEDICARE ADV ANTHEM Care Teams Tobacco Stripping Machine Operator Relationship Specialty Start Date End Date Drew Weeks MD [address] [place] [phone] PCP - General 10/04/22
--- OUTSIDE RECORDS SUMMARY | 2025-05-11 00:52 | XMS_ITS | Encounter Summary ---
Author Organization [facility] Address [address] [place] [address] Care Team Providers Care Salesforce Specialist Name Role Phone Aaron Duggan MD Unavailable [phone] Jose Luis Lin MD Primary Care Provider Encounter Details Date Type Department Care Team (Late Contact Info) Description 11/28/2022 Abstract [facility] [address] [address] Ekaterina Sánchez MA Social History Tobacco Use Types Packs/Day Years Used Date Smoking Tobacco: Former Cigarettes Q uit: 05/1985 Smokeless Tobacco: Never Alcohol Use Standard Drinks/Week Comments No 0 (1 standard drink = 0.6 oz pur e alcohol) Comments Unknown Sex and Gender Information Value Date Recorded Sex Assigned at Female 09/10/2024 1:02 PM CHURN DRILLER HELPER Legal Sex Female 9:18 PM CDT Gender [...] Coronavirus/COVID-19? No / Unsure 10/31/2022 8:37 AM CHURN DRILLER HELPER documented as of this encounter Plan of Treatment Upcoming Encounters Date Type Department Care Team (Late Contact Info) Description 09/15/2025 11:00 AM CHURN DRILLER HELPER Office Visit [facility] [address] [address] Aaron Duggan MD [address] [place] [address] documented as of this encounter Procedures Procedure [...] Genericprovider LABORATORY Final Result * Nt-Pro Bnp [place] (11/05/2022) PRO-BRAIN NATRIURETIC PEPTIDE 560 11/05/2022 us Default History Genericprovider GENERAL SUPPLY & EQUIPMENT ORDERABLES Final Result documented in this encounter Visit Diagnoses Not on filedocumented in this encounter Care Teams Salesforce Specialist Relationship Specialty Start Date End Date Jose Luis Lin MD [address] [address] PCP - General FAMILY PRACTICE 08/27/17 Aaron Duggan MD [address] [address] Swati Electric Container Tester CARDIOVASCULAR DISEASE 01/26/16 documented as of this encounter
--- OUTSIDE RECORDS SUMMARY | 2025-05-11 00:52 | XMS_ITS | Clinical Summary ---
Author Organization [facility] Address [facility] [place] [address] Care Team Providers Care Underpresser Hand Name Role Phone Aaron Duggan MD Unavailable [phone] Jose Luis Lin MD Primary Care [...] 1 MG tablet daily. 10/01/2023 Active Pancrelipase, Aux-Bpie-Mpeq, (CREON) 48008 UNIT capsule 1 capsule (24,000 units of [...] Sex Assigned at Female 09/10/2024 1:02 PM CALIBRATION ENGINEER Legal Sex Female 9:18 PM CDT Gender Identity Not on file Sexual Orientation Not on file Occupation Industry Job Start Date Job End Date Not on file Not on file Not on file Not on file Last Filed Vital Signs Vital Sign Reading Time Taken Comments Blood Pressure 132/66 09/10/2024 1:04 PM CALIBRATION ENGINEER Pulse 64 09/10/2024 1:04 PM CALIBRATION ENGINEER Temperature - - Respiratory Rate 16 06/19/2022 2:30 PM CDT Oxygen Saturation 98% 09/10/2024 1:04 PM CALIBRATION ENGINEER Inhaled Oxygen Concentration - - Weight 68.9 kg (152 lb) 09/10/2024 1:04 PM CALIBRATION ENGINEER Height 165.1 cm (5' 5) 09/10/2024 1:04 PM CALIBRATION ENGINEER Body Mass Index 25.29 09/10/2024 1:04 PM CALIBRATION ENGINEER Plan of Treatment Upcoming Encounters Date Type Department Care Team (Late st Contact Info) Description 09/15/2025 11:00 AM CALIBRATION ENGINEER Office Visit [facility], [address] [address] Aaron Duggan MD [facility]. [address] [address] Health Maintenance Due Date Last Done Comments Colorectal Cancer Screening Colonoscopy (10 Years) 1950 Annual Medicare Wellness Visit 01/31/2017 COVID-19 Vaccine ( season) 2025 Mammogram Screening 02/28/2026 02/29/2024, 04/28/2022, 03/16/2021, Additional [...] 12:15 PM 06/19/2022 5:25 PM Care Teams Underpresser Hand Relationship Specialty Start Date End Date Jose Luis Lin MD [facility]. [address] [address] PCP - General FAMILY PRACTICE 08/27/17 Aaron Duggan MD Three [facility]. [address] [address] [place] Drum Cleaner CARDIOVASCULAR DISEASE 01/26/16
--- OUTSIDE RECORDS SUMMARY | 2025-05-11 00:52 | XMS_ITS | Clinical Summary ---
Author Organization [facility] Address [address] [place] [address] Phone Care Team Providers Care Booking Manager Name Role Phone Drew Weeks MD Primary Care Provider [phone] Allergies Active Allergy Reactions Criticality Noted Date [...] tablet Take 50 mcg by mouth. Active nhenne-ghbqouvw-r mylase (Creon) 24,000-76,000-120 ,000 unit capsule Take 1 Capsule by mouth. 3 Active mv-min/folic/vit K/lycop/coQ10 (DAILY MULTIVITAMIN ORAL) Take by mouth. Active Active Problems Patient Care Coordination No te Formatting of this note migh t be different from the original. 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
--- OUTSIDE RECORDS SUMMARY | 2025-05-11 00:52 | XMS_ITS | Clinical Summary ---
Author Organization [facility] Care Team Providers Care Ctc Operator Name Role Phone Unavailable Primary Care [...]
--- OUTSIDE RECORDS SUMMARY | 2025-05-11 00:52 | XMS_ITS | Clinical Summary ---
Author Organization [facility] Address [address] [place] [id number] Care Team Providers Care Dining Room Attendant Name Role Phone Olman Lopez MD Unavailable [phone] Jose Luis Lin MD Primary Care Provider Jolanta Varela Unavailable [phone] Jemal Wilson MD Unavailable Gui Gallardo MD Unavailable + Allergies Active [...] ORALIndications:he alth Take 2,000 Units by mouth early childhood lead teacher before breakfast Active levothyroxine (SYNTHROID) 50 mcg tabletIndications: hypothyroidism Take 1 tablet (50 mcg total) by mouth early childhood lead teacher before breakfast Active Gas Relief Extra Strength 125 mg chewable tablet Take 2 tablets (250 mg total) by mouth as needed for flatulence 3 Active calcium carbonate (CALCIUM 500 ORAL)Indications:h ealth Take 1,000 mg by mouth early childhood lead teacher before breakfast Active Creon 24,000-76,000 -120,000 unit capsuleIndications :exocrine pancreatic insufficiency 1 capsule 3 (three) times a day with meals 3 Active alendronate (FOSAMAX) 70 mg tabletIndications: Post-Menopausal Osteoporosis Take 1 tablet (70 mg total) by mouth every 7 days Take on Sunday 4 Active folic acid (FOLVITE) 1 mg tabletIndications: health Take 1 tablet (1 mg total) by mouth early childhood lead teacher before breakfast 4 Active traMADoL (ULTRAM) 50 [...] 07/10/2022 Assessment & Plan (07/10/2022 3:43 PM CREW FOREMAN): Patient has a displaced comminuted angulated fracture [...] (07/03/2022): Added automatically from request for surgery [id number] Sacroiliitis, not elsewhere classified Assessment & Plan [...] 11:00 AM CDT Office Visit [facility] [address] [facility][1] [address] [place] [address] Fior Dominique NP Spinal stenosis, lumbar region, without neurogenic claudication [M48.061] (Primary Dx) 04/21/2025 9:43 AM CDT - 04/21/2025 11:59 PM CDT Hospital Encounter [facility] Diagnostic Imaging [address] [place] [address] Low back pain, unspecified back pain laterality, unspecified chronicity, unspecified whether sciatica present Discharge Disposition: Discharge to home or self care 04/13/2025 10:08 AM CDT - 04/13/2025 11:59 PM CDT Hospital Encounter [facility] Imaging and Radiology [address] [place] [address] Right hip pain Discharge Disposition: Discharge to home or self care 04/13/2025 9:45 AM CDT Office Visit [facility] Orthopedics and Sports Medicine at [address], [place] [phone] Lul Holbrook MD Right hip pain (Primary Dx); Degeneration of intervertebral disc of lumbar region with discogenic back pain 04/13/2025 Orders Only [facility] [address] [facility] [address] [place] [address] Lauren Reed Low back pain, unspecified back pain laterality, unspecified chronicity, unspecified whether sciatica present (Primary Dx) 04/13/2025 Telephone [facility] [address] [facility] [address] [place] [address] Lauren Reed 04/13/2025 Telephone [facility] Medicine Scheduling [address] [place] [address] Angela uBrks 04/13/2025 Orders Only [facility] Orthopedics and Sports Medicine at [address] [facility], [place] [phone] Lul Holbrook MD Right hip pain (Primary Dx) 04/01/2025 10:45 AM CDT - 04/01/2025 11:59 PM CDT Hospital Encounter [facility] [address] [place] [address] Screening mammogram, encounter for Discharge Disposition: Discharge to home or self care 03/05/2025 Orders Only [facility] Medicine Division of Nephrology [address] [place] [id number] Chloe Huerta MD 02/24/2025 11:17 AM CDT - 02/24/2025 11:59 PM CDT Hospital Encounter [facility] Imaging [address] [place] [address] Edema of left lower extremity Discharge Disposition: Discharge to home or self care 02/09/2025 6:40 PM CDT Lab [facility] Advanced [facility] Advanced Medicine ([facility]) [address] [place] [address] Stage 3b chronic kidney disease (HCC); 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); Proteinuria, unspecified type; Renal osteodystrophy 02/09/2025 3:20 PM CDT Office Visit [facility] Medicine Nephrology [address] [facility] Advanced Medicine 5th [place] [address] [place] [address] Tor Robin MD Anemia in stage 3a [...] on file Legal Sex Female 1:10 AM CREW FOREMAN Gender Identity Not on file Sexual Orientation [...] Completed 05/15/2023 Medical Devices Implanted Type Area Digital Computer Systems Analyst Device Identifier Shelf Expiration Date Model / Serial / Lot [employer] 4mm 28mm Cannulated Blunt Tip Low Profile Screw Bone Ar-5051-28 - [id number] Implanted:Qty: 1 on 07/14/2022 by Jj Moses MD at [facility] Left: Patella [employer] AR-5051-28 / / [employer] 4mm 30mm Cannulated Blunt Tip Low Profile Screw Bone Ar-5051-30 - [id number] Implanted:Qty: 1 on 07/14/2022 by Jj Moses MD at [facility] Left: Patella [employer] AR-5051-30 / [...] signed by: Nghia Puckett M.D. Fior Dominique DISABILITY SPECIALIST IMG XR PROCEDURES Final Result * XR [...] * (ABNORMAL) eGFR (02/09/2025 4:30 PM CDT) [facility] eGFR 34(L) >=60 mL/min/1. 73 m2 [...] MD LAB BLOOD ORDERABLE S Final Result [facility] Department [place] [address] * Differential, auto (02/09/2025 4:30 PM CDT) [facility] Neutrophil abs 4.22 1.50 - 6.50 K/cumm Imm gran abs 0.01 0.00 - 0.10 K/cumm [facility] Lymphocyte abs 1.18 0.80 - 3.30 K/cumm [facility] Monocyte abs 0.28 0.20 - 0.80 K/cumm [facility] Eosinophil abs 0.14 0.00 - 0.50 K/cumm [facility] Basophil abs 0.08 0.00 - 0.10 K/cumm [facility] Neutrophil pct 71.3 % [facility] Comment: Interpretive Data Percent cell count reference ranges are not reported, since discordance with absolute values may lead to misinterpretation of CBC data. Current Interpretive Data was last revised on 2017. Imm gran pct 0.2 % [facility] Comment: Interpretive Data Percent cell count reference ranges are not reported, since discordance with absolute values may lead to misinterpretation of CBC data. Current Interpretive Data was last revised on 2017. Lymphocyte pct 20.0 % [facility] Comment: Interpretive Data Percent cell count reference ranges are not reported, since discordance with absolute values may lead to misinterpretation of CBC data. Current Interpretive Data was last revised on 2017. Monocyte pct 4.7 % [facility] Comment: Interpretive Data Percent cell count reference ranges are not reported, since discordance with absolute values may lead to misinterpretation of CBC data. Current Interpretive Data was last revised on 2017. Eosinophil pct 2.4 % [facility] Comment: Interpretive Data Percent cell count reference ranges are not reported, since discordance with absolute values may lead to misinterpretation of CBC data. Current Interpretive Data was last revised on 2017. Basophil pct 1.4 % [facility] Comment: Interpretive Data Percent cell count reference ranges are not reported, since discordance with absolute values may lead to misinterpretation of CBC data. Current Interpretive Data was last revised on 2017. Blood 02/09/2025 4:30 PM CDT 02/09/2025 5:13 PM CDT us Tor Bernard MD LAB BLOOD ORDERABLE S Final Result [facility] Department [place] [address] * (ABNORMAL) Iron profile w/ IBC (02/09/2025 4:30 PM CDT) Iron 71 35 - 145 mcg/dL TIBC 237(L) 250 - 400 mcg/dL [facility] Transferrin saturation 30 20 - 50 % [facility] Blood 02/09/2025 4:30 PM CDT 02/09/2025 5:13 PM CDT Tor Bernard MD LAB BLOOD ORDERABLE S Final Result Performing Organization Address [facility] de Phone Number [facility] Department [place] [address] * (ABNORMAL) Cystatin C (02/09/2025 4:30 PM CDT) [facility] Cystatin C 1.84(H) 0.60 - 1.20 [...] last revised on 2020. Testing performed by: [facility] [place]., [address] Blood 02/09/2025 4:30 PM CDT 02/09/2025 5:29 PM CDT Tor Bernard MD LAB BLOOD ORDERABLE S Final Result Performing Organization Address [facility] de Phone Number [facility] Department [place] [address] * (ABNORMAL) CBC with auto differential (02/09/2025 4:30 PM CDT) [facility] WBC 5.91 3.80 - 9.90 K/cumm Hgb 9.2(L) 11.9 - 15.5 g/dL [facility] Hct 29.1(L) 35.6 - 45.5 % [facility] Plt 183 150 - 400 K/cumm [facility] MPV 12.8(H) 9.1 - 12.3 fL [facility] RBC 3.12(L) 3.90 - 5.20 M/cumm [facility] MCV 93.3 81.3 - 96.4 fL [facility] MCH 29.5 27.1 - 33.3 pg [facility] MCHC 31.6(L) 32.3 - 35.7 g/dL [facility] RDW CV 14.8 11.1 - 14.9 % [facility] RDW SD 50.7(H) 35.7 - 48.1 fL [facility] NRBC abs 0.00 0.00 - 0.01 K/cumm [facility] Blood 02/09/2025 4:30 PM CDT 02/09/2025 5:13 PM CDT Tor Bernard MD LAB BLOOD ORDERABLE S Final Result Performing Organization Address [facility] Co de Phone Number [facility] Department [place] [address] * Protein / creatinine ratio, urine, random (02/09/2025 4:30 PM CDT) Protein, ur, quant 6.7 mg/dL Comment: Interpretive Data No reference range established. Current interpretive data was last revised 2019. Creatinine Ur 90.4 mg/dL [facility] Comment: Interpretive Data No reference range established. Current interpretive data was last revised 2019. Protein/creatinin e ratio 73.5 0.0 - 180.0 mg/g CR [facility] Urine 02/09/2025 4:30 PM CDT 02/09/2025 5:13 PM CDT us Tor Bernard MD LAB URINE ORDERABLE S Final Result Performing Organization Address City/[facility]/ZIP Co de Phone Number [facility] Department [place] [address] * Albumin Creatinine Ratio, Urine (02/09/2025 4:30 PM CDT) Albumin Ur <12.0 mg/L Comment: Interpretive Data No reference range established. Current interpretive data was last revised 2019. Creatinine Ur 90.4 mg/dL [facility] Comment: Interpretive Data No reference range established. Current interpretive data was last revised 2019. Albumin Creatinine Ratio, Ur <13 1 - 29 mg/g [facility] Urine 02/09/2025 4:30 PM CDT 02/09/2025 5:13 PM CDT Tor Bernard MD LAB URINE ORDERABLE S Final Result Performing Organization Address City/[facility]/ZIP Co de Phone Number [facility] Department [place] [address] * Ferritin (02/09/2025 4:30 PM CDT) [facility] Ferritin 37 13 - 150 ng/mL Blood 02/09/2025 4:30 PM CDT 02/09/2025 5:13 PM CDT Tor Bernard MD LAB BLOOD ORDERABLE S Final Result Performing Organization Address City/[facility] Co de Phone Number [facility] Department [place] [address] * (ABNORMAL) Renal function panel (02/09/2025 4:30 PM CDT) Pathologist [facility] Sodium 141 135 - 145 mmol/L Potassium, pl 4.8 3.3 - 4.9 mmol/L [facility] Chloride 111(H) 97 - 110 mmol/L [facility] CO2 26 22 - 32 mmol/L [facility] Anion gap 4 2 - 15 mmol/L [facility] BUN 15 6 - 25 mg/dL [facility] Creatinine 1.60(H) 0.60 - 1.10 mg/dL [facility] Glucose 80 70 - 199 mg/dL [facility] Comment: Interpretive Data Fasting glucose >/= 126 [...] 2022. Calcium 8.4(L) 8.5 - 10.3 mg/dL [facility] Phosphorus, pl 2.7 2.3 - 4.5 mg/dL [facility] Albumin 3.2(L) 3.5 - 5.0 g/dL [facility] Blood 02/09/2025 4:30 PM CDT 02/09/2025 5:13 PM CDT us Tor Bernard MD LAB BLOOD ORDERABLE S Final Result Performing Organization Address City/[facility]/ZIP Co de Phone Number [facility] [place] [address] * Hepatitis C antibody Blood (05/15/2023 12:00 PM CDT) Hep C Ab Nonreactive Nonreactive Comment:Antibodies to HCV no t detected. Does NOT exclude the possibility of recent exposure to HCV. Current interpretive data was last revised on 22 Blood 05/15/2023 12:0 0 PM CDT 05/15/2023 12:18 PM CDT us Mark Mcdermott MD LAB MICROBIOLOGY - GENERAL ORD ERABLES Final Result [facility] [employer] [place] [address] * Dexa Axial Skeleton Bone Density 1 or 2 Site (03/13/2023 1:00 PM CDT) Anatomical Region Laterality Modality Body N/A Other 03/13/2023 10:2 9 PM CDT Narrative 03/13/2023 10:30 PM CDT EXAM DESCRIPTION: DEXA AXIAL SKELETON BONE DENSITY 1 OR MORE SITES REASON FOR STUDY: 73 y/o year old F with given history of: asymptomatic menopausal state Osteoporosis screening Post menopausal Digital Computer Systems Analyst/Model: [employer] Discovery SL (S/N [id number]) CLINICAL INFORMATION: Current height: 63 inches Maximum [...] Moi Dorman M.D. MF: ALLIE Report ID: [id number] Reading Location: [id number] Procedure Note Moi Dorman MD - 03/13/2023 EXAM DESCRIPTION: DEXA AXIAL SKELETON BONE DENSITY 1 OR MORE SITES REASON FOR STUDY: 73 y/o year old F with given history of:asymptomatic menopausal state Osteoporosis screening Post menopausal Digital Computer Systems Analyst/Model: [employer] Discovery SL (S/N [id number]) CLINICAL INFORMATION: Current height: 63 inches Maximum [...] Moi Dorman M.D. MF: ALLIE Report ID: [id number] Reading Location: [id number] Jose Luis Lin MD IMG DXA PROCEDURES Fin al Result * COLONOSCOPY REPORT (08/06/2017) Anatomical Region Laterality Modality Other Provider Scanning GI PROCEDURE ORDERABLES Final Result from Last 3 Months or Most Recently Relevant to Health Maintenance Insurance [facility]IC[facility] Address: [place] [id number] [place] [id number] [facility]ICARE [facility] Address: [facility] [address] [place] [address] [facility] MEDICARE [facility] Address: [address] [address] Care Teams Dining Room Attendant Relationship Specialty Start Date End Date Jose Luis Lin MD PCP - General 03/04/21 Olman Lopez MD Medical Oncologist/Traffic Workforce Representative Hematology and Oncology 03/21/18 [place] [address] [facility] [address] [place] [address] Physician Program Or Project Administrator Orthopedic Surgery 07/14/22 Jemal Wilson MD [address] [facility] [phone] [place] [address] Surgeon Colon and Rectal Surgery 12/08/22 Gui Gallardo MD [address] [place] [address] Furniture Delivery Driver Gastroenterology 12/13/22
[2025-06-01] VITALS (7 sets, daily range): BP systolic 123–149; BP diastolic 52–64; PULSE 69–82; RESP 12–18; TEMP 36.1–36.8; O2SAT 99–100; BMI 25.7
--- NOTE | 2025-06-01 12:34 | WPDANESEPPF ---
Anes - Initial Pre Proc Eval Procedure: Operation Date: 06/01/25 12:30 Proposed Procedures p Anal Rectal Examination Under Anesthesia, Anal Fistulotomy, Possible Fistulectomy - Danny Haddad MD Date/Time: 06/01/25 12:34 Surgeon: Danny Haddad MD Pre Op Diagnosis: perianal abscess with sinustract Patient Data Age: 75 Gender: F Height: 1.61 m Weight: 66.9 kg Last Vital Signs Temp 36.8 C 06/01/25 10:44 Pulse 69 06/01/25 10:44 Resp 18 06/01/25 10:44 BP 123/57 L 06/01/25 10:44 Pulse Ox 100 06/01/25 10:44 O2 Del Method Room Air 06/01/25 10:44 Allergies Allergy/AdvReac Type Severity Reaction Status Date / Time quinapril AdvReac Unknown Depression Verified 05/28/25 09:21 Home Medications ?Medication ?Instructions ?Recorded ?Confirmed ?Type calcium carbonate (Calcium 500) 500 mg PO BID #180 tabs 03/14/23 05/01/25 Rx folic acid 1 mg tablet 1 mg PO DAILY #100 tabs 05/12/24 05/01/25 Rx levothyroxine 50 mcg tablet 50 mcg PO DAILY #100 tabs 05/12/24 05/01/25 Rx cholecalciferol (vitamin D3) 50 4,000 unit PO DAILY 08/04/24 05/28/25 History mcg (2,000 unit) capsule pregabalin 150 mg capsule (Lyrica) 150 mg PO BID #180 caps 08/11/24 05/01/25 Rx furosemide 40 mg tablet 40 mg PO DAILY PRN edema 04/08/25 05/01/25 History tramadol 50 mg tablet 50 mg PO Q8H PRN pain #60 tabs 04/08/25 05/01/25 Rx zoledronic acid 5 mg/100 mL in 100 ea IV .yearly 05/06/25 05/28/25 Rx mannitol 5 %-water intravenous piggybck (Reclast) Held on 05/28/25. Instructions: Patient Condition famotidine 20 mg tablet (Pepcid) 20 mg PO BID #180 tabs 05/21/25 05/28/25 Rx Patient hx anesthesia problems: none Family hx anesthesia problems: none Results Review: All pre-operative results and documents have been reviewed as part of the pre-operative evaluation. [facility] Past Medical History Medical History Scoliosis CKD stage 3b, GFR 30-44 ml/min Cryptogenic cirrhosis Osteoporosis Pancreatic insufficiency Fatty liver Left patella fracture (~06/2022) Hypothyroidism (acquired) Multinodular goiter (~04/2022) Osteopenia Dupuytren's contracture of right hand Vitamin B12 deficiency Insomnia Iron deficiency anemia Orthostatic lightheadedness Osteoarthritis Post herpetic neuralgia Vitamin D deficiency Surgical History Surgical History S/P trigger finger release (~08/2023) right 4th finger History of hand surgery History of left knee surgery (~07/06/22) ORIF of patellar fracture History of right cataract surgery (~2011) History of left cataract surgery (~2012) Hx of decompressive lumbar laminectomy (~2010) H/O release of tendon (~2009) Dupuytren's contracture of right hand release H/O lithotripsy (~2008) Status post panniculectomy (~2007) History of Gelacio-en-Y gastric bypass (~2005) History of cholecystectomy (~2003) History of lumbar laminectomy (~2001) S/P medial meniscectomy of left knee (~2000) H/O: hysterectomy (~1998) Status post bariatric surgery 2006 Family History Family History Father Family history of coronary artery disease, Onset Age: 74 Mother Family history of coronary artery disease Carcinoma of colon Sibling Family history of coronary artery disease Social History Social History Smoking packs per day: 1.5 Smoking cigarettes per day: 30.0 Years smoked: 8 Smoking pack-years: 12.00 Smoking status: Former smoker Tobacco type: cigarettes Second hand tobacco smoke exposure: Yes Smoking end date: 08/27/84 Alcohol intake: never Substance use: never Substance use type: does not use Other substance usage details: tramadol as needed Current Housing: Decline to Answer Concerned About Future Housing: Decline to Answer Difficulty Paying Gas/Electric Bills: Decline to Answer Difficulty Paying for Meds: Decline to Answer Currently Unemployed: Decline to Answer Education: Decline to Answer Difficulty w/ Childcare or Family Care: Decline to Answer Living arrangements: alone Occupation/Education: retired Gender identity (if verbalized by the patient): Female Spiritual care concerns: No Anes - Eval Final PreProcedure Day of Procedure 06/01/25 12:34 Patient weight: overweight Heart: regular rate and rhythm Lungs: clear to auscultation Airway: Mallampati scale class II Neurological: alert and oriented Last oral intake: >/= 8 hours ASA classification: IV Emergent: no Anesthetic plan: proceed Anesthesia type and monitoring: general ETT and standard monitoring Results Review: All pre-operative results and documents have been reviewed as part of the pre-operative evaluation. Informed Consent: The patient's anesthetic plan and its attendant risks and benefits were discussed with the patient/family/POA. Questions were solicited and answers provided to the satisfaction of the patient/family/POA.
--- NOTE | 2025-06-01 12:36 | PM.IMHP ---
H&P: HPI History of Present Illness Date/Time: 06/01/25 12:36 Chief Complaint: Perianal drainage Narrative: Gunjan is a 75 y/o female who presents to the office at the request of Joseph Olivo MD for an evaluation of rectal drainage. Patient reports this has been going on for over 10 years. She has been on antibiotics several times, but has never had it surgically managed. She denies fevers or pain with this episode, but has been painful in the past. Patient denies history of Crohn's disease or any other bowel disorder. She reports she has normal, daily BM's. Review of Systems Review of Systems: The remainder of the review of systems to include constitutional, HEENT, cardiovascular, respiratory, GI, , integumentary, musculoskeletal, endocrine, immunologic, hematologic, psychiatric, and neurologic are all negative except for which is mentioned above in the HPI. [facility] Past Medical History Medical History Scoliosis CKD stage 3b, GFR 30-44 ml/min Cryptogenic cirrhosis Osteoporosis Pancreatic insufficiency Fatty liver Left patella fracture (~06/2022) Hypothyroidism (acquired) Multinodular goiter (~04/2022) Osteopenia Dupuytren's contracture of right hand Vitamin B12 deficiency Insomnia Iron deficiency anemia Orthostatic lightheadedness Osteoarthritis Post herpetic neuralgia Vitamin D deficiency Surgical History Surgical History S/P trigger finger release (~08/2023) right 4th finger History of hand surgery History of left knee surgery (~07/06/22) ORIF of patellar fracture History of right cataract surgery (~2011) History of left cataract surgery (~2012) Hx of decompressive lumbar laminectomy (~2010) H/O release of tendon (~2009) Dupuytren's contracture of right hand release H/O lithotripsy (~2008) Status post panniculectomy (~2007) History of Gelacio-en-Y gastric bypass (~2005) History of cholecystectomy (~2003) History of lumbar laminectomy (~2001) S/P medial meniscectomy of left knee (~2000) H/O: hysterectomy (~1998) Status post bariatric surgery 2006 Family History Family History Father Family history of coronary artery disease, Onset Age: 74 Mother Family history of coronary artery disease Carcinoma of colon Sibling Family history of coronary artery disease Social History Social History Smoking packs per day: 1.5 Smoking cigarettes per day: 30.0 Years smoked: 8 Smoking pack-years: 12.00 Smoking status: Former smoker Tobacco type: cigarettes Second hand tobacco smoke exposure: Yes Smoking end date: 08/27/84 Alcohol intake: never Substance use: never Substance use type: does not use Other substance usage details: tramadol as needed Current Housing: Decline to Answer Concerned About Future Housing: Decline to Answer Difficulty Paying Gas/Electric Bills: Decline to Answer Difficulty Paying for Meds: Decline to Answer Currently Unemployed: Decline to Answer Education: Decline to Answer Difficulty w/ Childcare or Family Care: Decline to Answer Living arrangements: alone Occupation/Education: retired Gender identity (if verbalized by the patient): Female Spiritual care concerns: No Meds Home Medications and Allergies Home Medications ?Medication ?Instructions ?Recorded ?Confirmed ?Type calcium carbonate (Calcium 500) 500 mg PO BID #180 tabs 03/14/23 05/01/25 Rx folic acid 1 mg tablet 1 mg PO DAILY #100 tabs 05/12/24 05/01/25 Rx levothyroxine 50 mcg tablet 50 mcg PO DAILY #100 tabs 05/12/24 05/01/25 Rx cholecalciferol (vitamin D3) 50 4,000 unit PO DAILY 08/04/24 05/28/25 History mcg (2,000 unit) capsule pregabalin 150 mg capsule (Lyrica) 150 mg PO BID #180 caps 08/11/24 05/01/25 Rx furosemide 40 mg tablet 40 mg PO DAILY PRN edema 04/08/25 05/01/25 History tramadol 50 mg tablet 50 mg PO Q8H PRN pain #60 tabs 04/08/25 05/01/25 Rx zoledronic acid 5 mg/100 mL in 100 ea IV .yearly 05/06/25 05/28/25 Rx mannitol 5 %-water intravenous piggybck (Reclast) Held on 05/28/25. Instructions: Patient Condition famotidine 20 mg tablet (Pepcid) 20 mg PO BID #180 tabs 05/21/25 05/28/25 Rx Allergies Allergy/AdvReac Type Severity Reaction Status Date / Time quinapril AdvReac Unknown Depression Verified 05/28/25 09:21 Vital Signs Vital Signs - 24 hr 06/01/25 10:44 Temperature 36.8 C Pulse Rate 69 Respiratory Rate 18 Blood Pressure 123/57 L Pulse Oximetry 100 Oxygen Delivery Room Air Exam Const: General: comfortable and no acute distress HENMT: Ears: TM's normal bilaterally Face/Nose/Sinus: Normal nares present Mouth: Yes moist mucous membranes Eyes: General: appearance normal, both eyes and all related structures Sclera: sclerae normal Pupils: Equal, round and reactive pupils present EOM: EOMs intact bilaterally Neck: Neck: supple and no JVD Resp: Effort & Inspection: normal respiratory effort Auscultation: clear to auscultation bilaterally Cardio: Rate: regular rate Rhythm: regular rhythm GI: Other: External draining area measuring 2-3mm right posterior at 1:00 with patient prone. Located 2-3cm from anal verge. No obvious palpable fistula tract, no cellulitis. Skin: General skin exam: normal color and no rashes or lesions noted Neuro: General: gait normal Speech: normal speech Motor exam (neuro): 5/5 motor strength present throughout Sensory Exam: normal sensation Extrem: General: normal to inspection Psych: Mental Status: mental status grossly normal Affect: normal affect Assessment and Plan Assessment and plan (1) Perianal abscess: Code(s): K61.0 - Anal abscess Status: Acute Assessment and Plan: I have reviewed office notes from Joseph Lin MD prior to patient visit today. Patient has a draining site in the perianal right posterior region. Could be chronic anal fistula vs sinus tract or perianal cyst. I have recommended an anorectal EUA, possible fistulotomy, possible fistulectomy to be done under general anesthesia as an outpatient. Procedure risks, benefits, indications, and expected outcomes were discussed with the patient in detail. All questions were answered. Anorectal prep information given. Patient would like to proceed. Follow-up 2 weeks postoperatively.
--- NOTE | 2025-06-01 12:40 | WPDHPUPDATE1 ---
History and Physical Update Update Date/Time: 06/01/25 12:40 History and Physical has been reviewed, including an updated exam of the patient. There are NO changes in the patient's condition. Risks, benefits, and alternatives have been discussed and questions answered. Patient agrees to proceed with procedure.
[2025-06-01] MEDS: ceFAZolin 2 GM in SODIUM CHLORIDE 0.9% IV 50 ML 100 ML IVPB (12:51)
[2025-06-01] MEDS: LIDO 1%/EPINEPHRINE 1:100,000 20 ML VIAL 30 ML INFILTRATE (13:30)
[2025-06-01] MEDS: BUPivacaine HCL 0.5% 10 ML AMP 30 ML INFILTRATE (13:31)
[2025-06-01] MEDS: LACTATED RINGERS 1,000 ML 30 ML IV CONT ×2 (13:47)
--- NOTE | 2025-06-01 13:53 | W.PM.PROC2 ---
Procedure Note - Detailed Date of Procedure 06/01/25 Pre-op Diagnosis Perianal abscess with sinus tract Post-op Diagnosis Same Procedure Performed Modified marsupialization of perianal cyst and sinus tract Surgeon Danny Haddad MD [employer] Anesthesia General Indications Patient is a 75-year-old female who has had a chronic intermittently draining area on her perianal region. On examination there is a medial opening in the perianal region but not inside the anal canal. It tracks about 2cm laterally the a chronic subcutaneous sinus tract abscess cavity. She presents now for excision or marsupialization of the sinus tract. Findings The patient had a perianal cyst with a sinus tract extending to a small chronic abscess cavity. No evidence of fistula in ano. Description of Procedure After informed consent was obtained patient brought to the operating room she was placed in the supine position on the gurney and then placed under general endotracheal anesthesia. She was then turned prone on the operating table taking care to make sure all the pressure points were well padded. The buttocks were taped apart to expose the posterior perianal region. There is then prepped draped usual sterile fashion. A time-out was then performed to correctly identifying the patient as well as procedure to be performed. She was given perioperative IV antibiotics. Upon inspection the perianal region I could see there was a small pinpoint 0 at 1:00 a.m. position about 1/2cm away from the anal verge. I performed a digital rectal exam in this area and there was no induration upon palpation of the anal ring in this area. I then used a lacrimal probe to probe the tract and extended laterally from this 1 o'clock position the posterior right side to a chronic cystic and chronic abscess pocket the sinus tract. The tract was very superficial just underneath the dermis of the skin. I decided to perform a modified marsupialization of the sinus tract and abscess cavity. Over the lacrimal probe the cautery set on pure cut was used to divide the skin over the probe to expose the sinus tract. Small amount of pus drained from the distal cystic chronic abscess cavity. I then irrigated out the area of sterile saline solution. A curette was then used to mechanically remove any epithelialized tissue within the sinus tract and abscess cavity. I then fulgurated the abscess cavity and chronic draining sinus tract with electrocautery to destroy any epithelialized tissue within the sinus tract. Hemostasis was good. I injected local anesthetic mixture consisting of 1% lidocaine mixed with 0.5% Marcaine with some epinephrine around the area for local anesthetic effect. The was then packed with quarter-inch iodoform gauze. There was then cleaned and then a dry sterile 4x4 dressing and tape was used to cover the wound. The patient tolerated the procedure well no complications. All sponges, needles, and instrument counts were correct at the end procedure. EBL was _5__cc. The patient was awakened and taken to recovery in stable and satisfactory condition. Implants None Estimated Blood Loss 5 Drains No Packing Yes (Quarter-inch iodoform gauze perianal wound) Pathology None sent Complications No immediate complications Condition Stable Disposition PACU [facility] Billing Surgery - Charge Forward: Surgery Billing
== END 2025-06-01 15:29 | disposition home or self-care (01) ==
PROVIDERS: PCP Family Medicine; Visit Provider Surgery
PROC: (CPT 46050; principal; 2025-06-01 12:30)
DX: K61.0 Anal abscess (principal); Z87.891 Personal history of nicotine dependence
CPT/HCPCS: 46050; J0690; J1100; J2004; J2405; J2704; J3010; J7120

== ENCOUNTER 2025-07-13 14:15 | Outpatient (CLI) | payer MEDICARE, SELFPAY ==
[2025-07-13 18:43] LABS: Alanine Aminotransferase 24 U/L (6-35); Albumin Level 2.9 g/dL (3.5-5.1); Alkaline Phosphatase 113 U/L (38-126); Anion Gap 4 mmol/L (4-12); Aspartate Amino Transferase 38 U/L (14-36); Bilirubin,Total 0.8 mg/dL (0.2-1.3); Blood Urea Nitrogen 13 mg/dL (7-17); Calcium 7.3 mg/dL (8.4-10.2); Carbon Dioxide 25 mmol/L (22-30); Chloride 107 mmol/L (98-107); Estimated Glomerular Filt Rate 35; Glucose 88 mg/dL (65-110); Potassium 3.9 mmol/L (3.4-5.0); Sodium 136 mmol/L (137-145); Total Protein 6.0 g/dL (6.3-8.2)
[2025-07-13 18:45] LABS: Iron 74 ug/dL (37-170)
[2025-07-13 18:54] LABS: Percent Iron Saturation 27 % (20-50)
[2025-07-13 19:22] LABS: Thyroid Stimulating Hormone Reflex 1.730 uIU/mL (0.465-4.68)
[2025-07-13 19:26] LABS: Ferritin 17.10 ng/mL (11.1-264)
[2025-07-13 19:54] LABS: Vitamin B12 554.0 pg/mL (239-931)
== END 2025-07-13 14:16 | disposition home or self-care (01) ==
LOC: ANHGOSHLAB 14:15
PROVIDERS: PCP Family Medicine; Visit Provider Family Medicine
DX: E03.9 Hypothyroidism, unspecified (principal); D64.9 Anemia, unspecified; R10.9 Unspecified abdominal pain
CPT/HCPCS: 36415; 80053; 82607; 82728; 82746; 83540; 83550; 84443